=== PATIENT | male | born 1950 | race Caucasian/White ===

== ENCOUNTER 2018-04-08 13:39 | Emergency (ER) | payer MEDICARE, OTHER ==
--- NOTE | 2018-04-08 13:55 | ERPHSYRPT ---
- History of Present Illness Time Seen by Provider: 04/08/18 13:46 Historian: patient Exam Limitations: no limitations Physician History: The patient is a 68-year-old male complaining of chest pain/pressure that began yesterday morning before going to hoahaoism. He took 2 325 mg aspirin tablets under his tongue yesterday morning with some relief. Later in the day he still had the chest pressure and took another 325 mg aspirin under his tongue. This morning he woke up with the chest pressure more severe than yesterday evening. He took 325 mg aspirin this morning. He was with his brother who gave him a nitroglycerin 0.4 mg sublingual with some relief. Yesterday he had some nausea and sweating. He denies shortness of breath. The patient called the nurse at the [facility] and was told to come to the ER to be checked out. He has smoked cigarettes for 54 years. He has no coronary artery disease to his knowledge. His past medical history is significant for BPH, hypertension, high cholesterol, and arthritis. Pt just told me that he has intermittent dizziness and stumbles for 1 month. Had GEE yesterday and today. Wants head CT. worried about brain tumor. Timing/Duration: yesterday, constant, worse Activities at Onset: none Quality: pressure Location: substernal Chest Pain Radiation: no radiation Severity of Pain-Max: severe Severity of Pain-Current: moderate Modifying Factors: Improves With: nitroglycerin, aspirin Associated Symptoms: nausea, diaphoresis, weakness, No vomiting, No abdominal pain, No shortness of breath Prior Chest Pain/Cardiac Workup: no prior chest pain Nitro Today/Relief: 0.4 mg x 1, provided at home, mild relief Aspirin Treatment Today: 325 mg x 1, provided at home Allergies/Adverse Reactions: terazosin Allergy (Verified 04/08/18 15:11) Home Medications: Amlodipine Besylate 5 mg [Norvasc 5 mg] 5 mg PO DAILY 02/28/13 [History] Aspirin EC 81 mg [Ecotrin 81 mg] 81 mg PO DAILY 02/28/13 [History] Celecoxib 100 mg [celeBREX 100 MG] 200 mg PO DAILY 02/28/13 [History] Diclofenac Sodium 75 mg PO BID 02/28/13 [History] Gabapentin 300 mg [Neurontin 300 mg] 600 mg PO BID 02/28/13 [History] Hydrocodone /APAP 7.5/325 mg [[place] 7.5/325 mg Tab] 1 tab PO Q6HPRN PRN 04/05 [History] Loratadine 10 mg [Claritin 10 mg] 10 mg PO DAILY 02/28/13 [History] Multivitamin [Multi-Vitamin Daily] 1 each PO DAILY 02/28/13 [History] [place] 3/Dha/Epa/Vitamin D3 [[place]-3 + Vitamin D3 Softgel] 1 each PO DAILY [History] Omeprazole 20 MG [Prilosec 20 mg] 20 mg PO DAILY 02/28/13 [History] Simvastatin 20Mg [Zocor 20Mg] 20 mg PO DAILY 02/28/13 [History] Tamsulosin HCl 0.4 mg [Flomax 0.4 MG] 0.4 mg PO HS 02/28/13 [History] Testosterone [Androgel] 5 gm TD 02/28/13 [History] Hx Tetanus, Diphtheria Vaccination/Date Given: Yes Hx Influenza Vaccination/Date Given: Yes (LAST SEASON) Hx Pneumococcal Vaccination/Date Given: Yes (COUPLE YEARS AGO) - Review of Systems Constitutional: No Fever, No Chills Eyes: No Symptoms Ears, Nose, & Throat: No Symptoms Respiratory: No Cough, No Dyspnea Cardiac: Chest Pain Abdominal/Gastrointestinal: Nausea, No Vomiting, No Diarrhea Genitourinary Symptoms: No Dysuria Musculoskeletal: No Back Pain, No Neck Pain Skin: No Rash Neurological: No Dizziness, No Focal Weakness, No Sensory Changes Psychological: No Symptoms Endocrine: No Symptoms Hematologic/Lymphatic: No Symptoms Immunological/Allergic: No Symptoms All Other Systems: Reviewed and Negative - Past Medical History Pertinent Past Medical History: Yes Neurological History: No Pertinent History ENT History: No Pertinent History Cardiac History: Hypertension Respiratory History: No Pertinent History Endocrine Medical History: No Pertinent History Musculoskeletal History: Arthritis GI Medical History: No Pertinent History History: No Pertinent History Psycho-Social History: No Pertinent History Male Reproductive Disorders: No Pertinent History - Past Surgical History Past Surgical History: Yes Neuro Surgical History: No Pertinent History Cardiac: No Pertinent History Respiratory: No Pertinent History Gastrointestinal: Appendectomy Genitourinary: No Pertinent History Musculoskeletal: Other Male Surgical History: No Pertinent History Other Surgical History: BACK SURGERY - Social History Smoking Status: Current every day smoker How long have you smoked: 50 Exposure to second hand smoke: No Drug Use: none Patient Lives Alone: No - Nursing Vital Signs Nursing Vital Signs: Initial Vital Signs Temperature 98.1 F 04/08/18 13:41 Pulse Rate 60 04/08/18 13:41 Respiratory Rate 18 04/08/18 13:41 Blood Pressure 146/75 04/08/18 13:41 O2 Sat by Pulse Oximetry 96 04/08/18 13:41 Pain Scale Pain Intensity 4 - Physical Exam General Appearance: no apparent distress, alert Eye Exam: PERRL/EOMI, eyes nml inspection Ears, Nose, Throat Exam: normal ENT inspection, moist mucous membranes Neck Exam: normal inspection, non-tender, supple, full range of motion Respiratory Exam: normal breath sounds, lungs clear, No respiratory distress Cardiovascular Exam: regular rate/rhythm Gastrointestinal/Abdomen Exam: soft, No tenderness, No mass Rectal Exam: not done Back Exam: normal inspection, No CVA tenderness, No vertebral tenderness Extremity Exam: normal inspection, normal range of motion Neurologic Exam: alert, oriented x 3, cooperative, normal mood/affect, sensation nml, No motor deficits Skin Exam: normal color, warm, dry SpO2 Interpretation: normal - Course EKG Interpreted by Me: RATE, Sinus Rhythm, NORMAL AXIS, NORMAL INTERVALS, NORMAL QRS, NORMAL ST-T, Other (no change compared to EKG 03/01/13.) - Radiology Exams Chest X-ray Interpretation: Reviewed by me, Teleradiologist Report, Negative (stable nonacute hyperinflated chest per Dr Nguyễn) - CT Exams Head CT Interpretation: Negative (per Dr Nguyễn), Tele-radiologist Report Ordered Tests: Active Orders 24 hr Category Date Time Status Felt [place] STAT Care 04/08/18 14:03 Active EKG-ER Only STAT Care 04/08/18 14:02 Active IV Insertion STAT Care 04/08/18 14:02 Active Pulse Oximetry (ED) STAT Care 04/08/18 14:02 Active CHEST 2 VIEWS (PA AND LAT) Stat Exams 04/08/18 14:03 Completed HEAD WITHOUT CONTRAST [CT] Stat Exams 04/08/18 17:06 Taken CBC W DIFF Stat Lab 04/08/18 14:20 Completed CMP Stat Lab 04/08/18 14:20 Completed TROPONIN Q3H Lab 04/08/18 14:20 Completed TROPONIN Q3H Lab 04/08/18 17:15 Ordered TROPONIN Q3H Lab 04/08/18 20:15 Ordered TROPONIN Q3H Lab 04/08/18 23:15 Ordered TROPONIN Q3H Lab 04/09/18 02:15 Ordered Medication Summary Discontinued Medications Generic Name Dose Route Start Last Admin Trade Name Freq PRN Reason Stop Dose Admin Al Hydrox/Mg Hydrox/Simethicone Confirm 04/08/18 15:28 Maalox Es 30 Ml Unit Dose Administered 04/08/18 15:29 Dose 30 ml .ROUTE .STK-MED ONE Aspirin 324 mg 04/08/18 14:02 04/08/18 14:39 Baby Aspirin 81 Mg Chew PO 04/08/18 14:03 Not Given STAT ONE Lidocaine HCl Confirm 04/08/18 15:28 Xylocaine Hcl Viscous * Administered 04/08/18 15:29 Dose 15 ml .ROUTE .STK-MED ONE Magnesium Hydroxide 45 ml 04/08/18 15:25 04/08/18 15:32 Gi Cocktail 45 Ml (Maalox/Lidocaine) PO 04/08/18 15:26 45 ml STAT ONE Administration Nitroglycerin 0.4 mg 04/08/18 14:02 04/08/18 14:18 Nitrostat 0.4 Mg (Ed) SL 04/08/18 14:03 0.4 mg STAT ONE Administration Nitroglycerin Confirm 04/08/18 14:15 Nitrostat 0.4 Mg (Ed) Administered 04/08/18 14:16 Dose 0.4 mg SL .STK-MED ONE Nitroglycerin 0.4 mg 04/08/18 14:37 04/08/18 14:42 Nitrostat 0.4 Mg (Ed) SL 04/08/18 14:38 0.4 mg STAT ONE Administration Nitroglycerin Confirm 04/08/18 14:40 Nitrostat 0.4 Mg (Ed) Administered 04/08/18 14:41 Dose 0.4 mg SL .STK-MED ONE Lab/Rad Data: Laboratory Result Diagrams 04/08/18 14:20 04/08/18 14:20 Laboratory Results 04/08/18 04/08/18 04/08/18 Range/Units 14:20 14:20 14:20 WBC 10.1 (4.0-10.5) K/mm3 RBC 3.90 L (4.1-5.6) M/mm3 Hgb 12.7 (12.5-18.0) gm/dl Hct 38.3 L (42-50) % MCV 98.2 (78-100) fl MCH 32.5 H (26-32) pg MCHC 33.2 (32-36) g/dl RDW 13.0 (11.5-14.0) % Plt Count 198 (150-450) K/mm3 MPV 9.4 (6-9.5) fl Gran % 64.4 (36.0-66.0) % Eos # (Auto) 0.36 (0-0.5) Absolute Lymphs (auto) 2.46 (1.0-4.6) Absolute Monos (auto) 0.72 (0.0-1.3) Lymphocytes % 24.5 (24.0-44.0) % Monocytes % 7.2 (0.0-12.0) % Eosinophils % 3.6 (0.00-5.0) % Basophils % 0.3 (0.0-0.4) % Absolute Granulocytes 6.49 (1.4-6.9) Basophils # 0.03 (0-0.4) Sodium 142 (137-145) mmol/L Potassium 4.4 (3.5-5.1) mmol/L Chloride 107 (98-107) mmol/L Carbon Dioxide 26 (22-30) mmol/L Anion Gap 14.4 (5-15) MEQ/L BUN 19 (9-20) mg/dL Creatinine 0.78 (0.66-1.25) mg/dL Estimated GFR > 60.0 ML/MIN Glucose 92 (74-106) mg/dL Calcium 9.2 (8.4-10.2) mg/dL Total Bilirubin 0.40 (0.2-1.3) mg/dL AST 31 (17-59) U/L ALT 31 (0-50) U/L Alkaline Phosphatase 66 (38-126) U/L Troponin I < 0.012 (0.000-0.034) ng/mL Serum Total Protein 6.6 (6.3-8.2) g/dL Albumin 4.1 (3.5-5.0) g/dL - Progress Progress: improved Air Movement: good Progress Note: 04/08/18 14:38 After ng 0.4 mg SL, pt has less chest pain. 04/08/18 17:06 Pt feeling better after GI Cocktail. - Departure Time of Disposition: 18:41 Departure Disposition: Home Clinical Impression: Chest pain Condition: Stable Critical Care Time: No Referrals: DOCTOR,NO FAMILY [Primary Care Provider] - Additional Instructions: You had a 2 day episode of chest pain. Your EKG, chest x-ray, head CT, laboratory results including troponin were all normal. You were given nitroglycerin and a GI cocktail in the ER. Please contact [facility] for further follow-up as needed.
[2018-04-08] MEDS ORDERED: Nitrostat 0.4 MG (ED) SL ONE ×4 (14:02→14:40)
[2018-04-08] MEDS ORDERED: BABY ASPIRIN 81 MG CHEW PO ONE (14:02)
[2018-04-08 14:26] LABS: BASOPHIL % 0.3 % (0.0-0.4); Basophil (Absolute #) 0.03 (0-0.4); Eosinophil % 3.6 % (0.00-5.0); Eosinophil (Absolute #) 0.36 (0-0.5); Granulocyte Absolute (ANC) 6.49 (1.4-6.9); Granulocytes % 64.4 % (36.0-66.0); Hematocrit 38.3 % (42-50); Hemoglobin 12.7 gm/dl (12.5-18.0); Lymphocyte (Absolute #) 2.46 (1.0-4.6); Lymphocytes % 24.5 % (24.0-44.0); Mean Cell Volume 98.2 fl (78-100); Mean Corpuscular Hgb Concent. 33.2 g/dl (32-36); Mean Platelet Volume 9.4 fl (6-9.5); Monocyte (Absolute #) 0.72 (0.0-1.3); Monocytes % 7.2 % (0.0-12.0); Platelet Count 198 K/mm3 (150-450); White Blood Count 10.1 K/mm3 (4.0-10.5)
--- NOTE | 2018-04-08 14:39 | XRAY ---
Indication: Chest pain. Comparison: February 28, 2013. PA/lateral chest again hyperinflated and clear with incidental scattered calcified granulomas. Heart and mediastinal structures within normal limits. Bony thorax intact again with mild degenerative changes. Impression: Stable nonacute hyperinflated chest with chronic features.
[2018-04-08 14:49] LABS: Mean Corpuscular Hemoglobin 32.5 pg (26-32)
[2018-04-08 15:00] LABS: ALBUMIN 4.1 g/dL (3.5-5.0); ALKALINE PHOSPHATASE 66 U/L (38-126); ANION GAP 14.4 MEQ/L (5-15); BLOOD UREA NITROGEN 19 mg/dL (9-20); CHLORIDE 107 mmol/L (98-107); Calcium 9.2 mg/dL (8.4-10.2); Carbon Dioxide 26 mmol/L (22-30); Creatinine 1 0.78 mg/dL (0.66-1.25); Glucose 92 mg/dL (74-106); Potassium 4.4 mmol/L (3.5-5.1); SGOT/AST 31 U/L (17-59); SGPT/ALT 31 U/L (0-50); SODIUM 142 mmol/L (137-145); Total Protein 6.6 g/dL (6.3-8.2)
[2018-04-08] MEDS ORDERED: GI COCKTAIL 45 ML (Maalox/Lidocaine) PO ONE (15:25)
[2018-04-08] MEDS ORDERED: XYLOCAINE HCl Viscous ONE (15:28)
[2018-04-08] MEDS ORDERED: MAALOX ES 30 ML UNIT DOSE ONE (15:28)
[2018-04-08 19:14] VITALS: BP 158/65; PULSE 60; O2SAT 96
--- NOTE | 2018-04-09 08:38 | XRAY ---
Indication: Headache and dizziness. No known injury. Multiple contiguous axial images obtained through the head without contrast. Comparison: None Normal appearing brain parenchyma, ventricles, and bony calvarium. Visualized paranasal sinuses and mastoid air cells are clear. Impression: Normal CT head without contrast exam. CT DI 69.52
== END 2018-04-08 19:12 | disposition home or self-care (01) ==
LOC: ED 13:39
DX: R07.9 Chest pain, unspecified (principal); R42 Dizziness and giddiness; R51 Headache; R11.0 Nausea; R53.1 Weakness; Z79.82 Long term (current) use of aspirin; Z79.899 Other long term (current) drug therapy
CPT/HCPCS: 36000; 36415; 70450; 71046; 80053; 84484; 85025; 93005; 93041; 99284; A9270-GY

== ENCOUNTER 2019-02-26 09:56 | Day surgery (SDC) | payer MEDICARE, OTHER ==
[2019-02-26] MEDS ORDERED: Sodium Chloride 0.9(Preservative Free) 10 ML IJ ONE (09:57)
[2019-02-26] MEDS ORDERED: Ketamine HCl 50 MG/ML IV ONE (09:57)
[2019-02-26] MEDS ORDERED: Depo-Medrol 40 MG/ML IM ONE (09:57)
[2019-02-26] MEDS ORDERED: DIPRIVAN 200 MG/20 ML IV ONE (09:57)
--- NOTE | 2019-02-26 12:51 | XRAY ---
Indication: Right L4-S1 EUSEBIO. Intraoperative fluoroscopy was provided for 1 minute 16 seconds. 2 digital spot image submitted for interpretation demonstrates posterior needle tips projecting over the expected course of the right L3-L4 nerve roots. Small amount of contrast injected for needle tip placement. Correlate with intraoperative findings/report.
--- NOTE | 2019-02-26 12:58 | XRAY ---
1 minute and 16 seconds fluoroscopy time in surgery for right L4-S1 EUSEBIO.
[2019-02-26] MEDS ORDERED: Lactated Ringers 1,000 ML IV ONE (13:30)
== END 2019-02-26 11:45 | disposition home or self-care (01) ==
LOC: SDC-PAIN 09:56
PROVIDERS: ATTEND Psychiatry & Neurology Pain Medicine
DX: M54.16 Radiculopathy, lumbar region (principal); M19.90 Unspecified osteoarthritis, unspecified site
CPT/HCPCS: 64483; 64484; 72020; 77003; 99100; J1030; J2704; Q9966

== ENCOUNTER 2020-07-10 16:12 | Emergency (ER) | payer MEDICARE ==
--- NOTE | 2020-07-10 16:25 | ERPHSYRPT ---
- History of Present Illness Time Seen by Provider: 07/10/20 16:19 Source: patient Exam Limitations: no limitations Physician History: Patient is a 70-year-old male with a past medical history significant for chronic back pain for which he takes gabapentin and Blakeslee presents with a chief complaint of left shoulder pain and left ankle pain after mechanical fall that occurred couple hours prior to arrival to the emergency department. He states that he was on a ladder that was reportedly a 6 foot ladder but not at the top of the ladder when he fell and impacted the left side of his body on a hard surface, specifically concrete. States he was about midway up the ladder when he fell. There is no reported loss of consciousness, headache, neck pain and the patient was able to pick himself up off the ground and ambulate and drive home but decided to come to the emergency department when he continued to have left shoulder pain. He is not take anything for the pain prior to arrival and reportedly had a Blakeslee at about 630 this morning for his chronic back pain. The patient denied taking anticoagulants and antiplatelets. His main complaint was a left shoulder pain. The pain is dull ache nonradiating constant. He also endorsed having swelling to the left shoulder in addition to the lateral aspect of the left ankle. He has been able to weight-bear on the left foot immediately after the fall. Labs alone in the emergency department but stated he was able to arrange transportation if he were to get any medications that would impair his ability to drive. Allergies/Adverse Reactions: terazosin Allergy (Verified 07/10/20 16:14) Home Medications: Amlodipine Besylate 5 mg [Norvasc 5 mg] 5 mg PO DAILY 02/28/13 [History] Aspirin EC 81 mg [Ecotrin 81 mg] 81 mg PO DAILY 02/28/13 [History] Celecoxib 100 mg [celeBREX 100 MG] 200 mg PO DAILY 02/28/13 [History] Diclofenac Sodium 75 mg PO BID 02/28/13 [History] Gabapentin 300 mg [Neurontin 300 mg] 600 mg PO BID 02/28/13 [History] Hydrocodone /APAP 7.5/325 mg [[place] 7.5/325 mg Tab] 1 tab PO Q6HPRN PRN 02/28/13 [History] Loratadine 10 mg [Claritin 10 mg] 10 mg PO DAILY 02/28/13 [History] Multivitamin [Multi-Vitamin Daily] 1 each PO DAILY 02/28/13 [History] [place] 3/Dha/Epa/Vitamin D3 [[place]-3 + Vitamin D3 Softgel] 1 each PO DAILY 02/28/13 [History] Omeprazole 20 MG [Prilosec 20 mg] 20 mg PO DAILY 02/28/13 [History] Simvastatin 20Mg [Zocor 20Mg] 20 mg PO DAILY 02/28/13 [History] Tamsulosin HCl 0.4 mg [Flomax 0.4 MG] 0.4 mg PO HS 02/28/13 [History] Hx Tetanus, Diphtheria Vaccination/Date Given: Yes Hx Influenza Vaccination/Date Given: Yes (LAST SEASON) Hx Pneumococcal Vaccination/Date Given: Yes (COUPLE YEARS AGO) Travel Risk - International Travel Have you traveled outside of the country in past 3 weeks: Yes - Coronavirus Screening Are you exhibiting any of the following symptoms?: No Close contact with a COVID-19 positive Pt in past 14-21 Days: No - Review of Systems Constitutional: No Symptoms Eyes: No Symptoms Ears, Nose, & Throat: No Symptoms Respiratory: No Symptoms, No Cough, No Cyanosis, No Dyspnea Cardiac: No Symptoms Abdominal/Gastrointestinal: No Symptoms Musculoskeletal: Fall, Injury, Other (Left shoulder pain and swelling, left ankle pain and swelling, left elbow pain, mid thoracic back pain) Skin: No Symptoms Neurological: No Symptoms, No Headache Psychological: No Symptoms Endocrine: No Symptoms Hematologic/Lymphatic: No Symptoms Immunological/Allergic: No Symptoms All Other Systems: Reviewed and Negative - Past Medical History Pertinent Past Medical History: Yes Neurological History: No Pertinent History ENT History: No Pertinent History Cardiac History: Hypertension Respiratory History: No Pertinent History Endocrine Medical History: No Pertinent History Musculoskeletal History: Arthritis GI Medical History: No Pertinent History History: No Pertinent History Psycho-Social History: No Pertinent History Male Reproductive Disorders: No Pertinent History - Past Surgical History Past Surgical History: Yes Neuro Surgical History: No Pertinent History Cardiac: No Pertinent History Respiratory: No Pertinent History Gastrointestinal: Appendectomy Genitourinary: No Pertinent History Musculoskeletal: Other Male Surgical History: No Pertinent History Other Surgical History: BACK SURGERY - Social History Smoking Status: Current every day smoker How long have you smoked: 50 Exposure to second hand smoke: No Drug Use: none Patient Lives Alone: No - Nursing Vital Signs Nursing Vital Signs: Initial Vital Signs Pulse Rate 64 07/10/20 17:31 Respiratory Rate 18 07/10/20 17:31 Blood Pressure 130/56 07/10/20 17:31 O2 Sat by Pulse Oximetry 97 07/10/20 17:31 Pain Scale Pain Intensity 5 - Physical Exam General Appearance: no apparent distress, alert Eye Exam: PERRL/EOMI, eyes nml inspection Ears, Nose, Throat Exam: normal ENT inspection, TMs normal, pharynx normal, moist mucous membranes, No TM abnormal (R), No TM abnormal (L), No pharyngeal erythema, No tonsillar exudate Neck Exam: normal inspection, non-tender, supple, No JVD, No limited range of motion, No midline tenderness Respiratory Exam: normal breath sounds, lungs clear, airway intact, No chest tenderness, No respiratory distress, No diminished breath sounds, No accessory muscle use Cardiovascular Exam: regular rate/rhythm, normal heart sounds - Radiology Exams Shoulder X-ray Interpretation: Interpreted by me, Reviewed by me, Negative, No Fracture, No Subluxation Elbow X-ray Interpretation: Interpreted by me, Reviewed by me, Negative, No Fracture, No Subluxation Ankle X-ray Interpretation: Interpreted by me, Reviewed by me, Negative, No Subluxation L-Spine X-ray Interpretation: Reviewed by me, Teleradiologist Report (Arthritis and listhesis) T-Spine X-ray Interpretation: Reviewed by me, Teleradiologist Report (Arthritis. No fracture) Ordered Tests: Active Orders 24 hr Category Date Time Status Feroz Bandage Application -[facility] STAT Care 07/10/20 17:50 Active Crutches STAT Care 07/10/20 17:50 Active Sling Application STAT Care 07/10/20 17:50 Active ANKLE (3 VIEWS) Stat Exams 07/10/20 16:26 Taken CHEST 2 VIEWS (PA AND LAT) Stat Exams 07/10/20 16:26 Taken ELBOW (MINIMUM 3 VIEWS) Stat Exams 07/10/20 16:26 Taken LUMBAR LIMITED (2 OR 3 VIEWS) Routine Exams 07/10/20 17:14 Taken SHOULDER Stat Exams 07/10/20 16:27 Taken THORACIC SPINE (AP,LAT,SWIMM) Stat Exams 07/10/20 16:27 Taken Medication Summary Discontinued Medications Generic Name Dose Route Start Last Admin Trade Name Camille PRN Reason Stop Dose Admin Fentanyl Citrate 50 mcg 07/10/20 16:28 07/10/20 16:32 Sublimaze 100 Mcg/2 Ml INTRANASAL 07/10/20 16:29 50 mcg STAT ONE Administration Fentanyl Citrate Confirm 07/10/20 16:30 Sublimaze 100 Mcg/2 Ml Administered 07/10/20 16:31 Dose 100 mcg .ROUTE .STK-MED ONE - Progress Progress: improved Progress Note: 07/10/20 17:03 Inspect reviewed and it appears the patient got 60 tablets of [place]akes[place] 7.5-325 filled on July 01, 2020. 07/10/20 17:32 Dated patient with his lumbar spine x-ray findings concerning for compression fractures and generative changes in his lumbar spine and he stated that he follows with the [facility] in [place] for his back pain and had x-rays and a follow-up MRI done at [facility] specifically done in May of this year and reportedly has been referred to a neurosurgeon for further evaluation and management. The patient's nurse is currently contacting [facility] to see if we can obtain his MRI report of his lumbar spine. SPECT the x-ray findings today are likely chronic and not acute. 07/10/20 17:44 MRI lumbar spine without contrast report from [facility] dated June 162019 was faxed over. The impression on this report reads the followin. Straightening of the lumbar lordosis with minimal retrolisthesis L2 on L3 and L3 on L4 with slight rightward lateral listhesis L3 on L4 in association with spondylosis and degenerative disc disease producing multilevel variable compromise of the lateral recesses, spinal canal stenosis, neuroforaminal stenosis as above. 2. L4-L5 posterior osteophytosis with annular disc bulge of the residual intervertebral disc facet arthropathy compromising lateral recess as well producing mild right and mild/moderate left neuroforaminal stenosis, noting combination of inferior pedicle surfaces osteophytosis/disc and arthropathy facet contact with exiting right and inferior pedicle surface and disc contact with exiting left L4 nerve roots; no spinal canal stenosis. 3. L5 and S1 posterior osteophytosis with annular disc bulge with shallow disc protrusion of the residual intervertebral disc and facet arthropathy produces severe bilateral neural foraminal stenosis, noting combination of inferior pedicle services, osteophytosis/disc, and arthropathy facet D formation of the exiting right and contact with the exiting L5 nerve roots, no spinal canal stenosis. Report will be scanned into the patient's medical record. Counseled pt/family regarding: diagnosis, need for follow-up, rad results - Departure Departure Disposition: Extended Care Facility Clinical Impression: Contusion of shoulder, left, Left ankle sprain, Acute exacerbation of chronic low back pain, Fall, Left elbow contusion Condition: Stable Critical Care Time: No Referrals: DOCTOR,NO FAMILY [Primary Care Provider] - Instructions: Contusion (DC), Preventing Falls, How to Use a Shoulder Sling, How to Use Crutches, Ankle Sprain (DC) Additional Instructions: [facility] one week and please follow-up with your neurosurgeon as scheduled once the appointment has been made.
[2020-07-10] MEDS ORDERED: SUBLIMAZE 100 MCG/2 ML INTRANASAL ONE (16:28)
[2020-07-10] MEDS ORDERED: SUBLIMAZE 100 MCG/2 ML ONE (16:30)
[2020-07-10 17:32] VITALS: BP 130/56; PULSE 64; O2SAT 97
--- NOTE | 2020-07-10 20:47 | XRAY ---
Indication: Pain following 6 feet fall. Comparison: None. 3 view left elbow obtained. No bony, articular, or soft tissue abnormalities.
--- NOTE | 2020-07-10 20:47 | XRAY ---
Indication: Pain following 6 feet fall. Comparison: April 08, 2018. PA/lateral chest remains hyperinflated and clear with incidental calcific granulomas. Heart is not enlarged. Bony thorax intact again with mild osteopenia and degenerative changes. Impression: Continued nonacute hyperinflated chest with chronic features.
--- NOTE | 2020-07-10 20:47 | XRAY ---
Indication: Pain following 6 feet fall. Comparison: None. 3 view left ankle demonstrates tiny posterior heel spur and tiny cuboid accessory ossicle. No other bony, articular, or soft tissue abnormalities.
--- NOTE | 2020-07-10 20:49 | XRAY ---
Indication: Pain following 6 feet fall. Comparison: None. 3 view left shoulder demonstrates mild osteopenia, moderate AC degenerative arthropathy, and high riding humeral head commonly associated with rotator cuff tears. No other bony, articular, or soft tissue abnormalities. Chest and thoracic spine reported separately.
--- NOTE | 2020-07-10 20:51 | XRAY ---
Indication: Pain following 6 feet fall. Comparison: None. AP/lateral thoracic spine demonstrates 12 rib-bearing segments in normal alignment with mild osteopenia and mild/moderate multilevel endplate spurring. No other bony, articular, or soft tissue abnormalities. Comment: Preliminary interpretation was made by [facility]. No critical discrepancy.
--- NOTE | 2020-07-10 20:54 | XRAY ---
Indication: Pain following 6 feet fall. Comparison: None. 3 view lumbar spine demonstrates 5 lumbar segments with minimal double curvature scoliosis, mild osteopenia, moderate/advanced multilevel degenerative spondylosis, incompletely visualized left hip arthroplasty, and aortoiliac calcifications. No other bony, articular, or soft tissue abnormalities. Comment: Preliminary interpretation was made by [facility]. No critical discrepancy.
== END 2020-07-10 18:11 | disposition home or self-care (01) ==
LOC: ED 16:12
DX: S40.012A Contusion of left shoulder, initial encounter (principal); S93.402A Sprain of unspecified ligament of left ankle, initial encounter; M54.5 Low back pain; G89.29 Other chronic pain; S50.02XA Contusion of left elbow, initial encounter; M51.36 Other intervertebral disc degeneration, lumbar region; M47.9 Spondylosis, unspecified; W17.89XA Other fall from one level to another, initial encounter
CPT/HCPCS: 71046; 72072; 72100; 73030; 73080; 73610; 99284; J3010

== ENCOUNTER 2022-11-08 12:36 | Day surgery (SDC) | payer MEDICARE ==
[2022-11-08] MEDS ORDERED: Depo-Medrol 40 MG/ML IM ONE (12:37)
[2022-11-08] MEDS ORDERED: LIDOCAINE HCL 2% 100 MG/5 ML IJ ONE (12:37)
[2022-11-08] MEDS ORDERED: Lactated Ringers 1,000 ML IV ONE (15:03)
[2022-11-08] MEDS ORDERED: DIPRIVAN 200 MG/20 ML IV ONE (15:12)
--- NOTE | 2022-11-08 17:17 | XRAY ---
Indication: Bilateral L4-S1 MBB. Intraoperative fluoroscopy provided for 36 seconds. 3 digital spot images submitted for interpretation demonstrates posterior needle tips projecting over the expected left and right L4-S1 nerve roots. Correlate with intraoperative findings/report. Incidental bilateral L4-S1 fusion hardware.
--- NOTE | 2022-11-08 17:19 | XRAY ---
36 seconds of fluoroscopy was used in surgery for a bilateral L4-S1 MBB.
== END 2022-11-08 15:45 | disposition home or self-care (01) ==
LOC: SDC-PAIN 12:36
PROVIDERS: ATTEND Psychiatry & Neurology Pain Medicine
DX: M47.816 Spondylosis without myelopathy or radiculopathy, lumbar region (principal); Z79.899 Other long term (current) drug therapy
CPT/HCPCS: 64493; 64494; 72020; 77002; J1030; J2704

== ENCOUNTER 2022-12-07 10:51 | Emergency (ER) | payer MEDICARE, OTHER ==
[2022-12-07 12:05] LABS: Appearance Clear (Clear); Bilirubin Negative (Negative); Blood Negative (Negative); Glucose, Urine Negative (Negative); Ketones Negative (Negative); Leukocyte Esterase Negative (Negative); Nitrite Negative (Negative); Protein,Urine Dip Negative (Negative); Urobilinogen 0.2 mg/dL (0.2)
[2022-12-07 12:15] LABS: ADD URINE CULTURE? NO (NO); Bacteria None Seen /HPF (None Seen); Epithelial Cells None Seen /HPF (None Seen); RBC NONE SEEN /HPF (0-5); WBC NONE SEEN /HPF (0-5)
--- NOTE | 2022-12-07 12:35 | XRAY ---
Indication: Right testicle pain. Two-dimensional testicular sonogram performed. Impression: None Both testicles are homogeneous in echogenicity and demonstrates normal color perfusion. Right testicle measures 3.4 x 2.3 x 4.3 cm and the left measures 3.7 x 2.5 x 3.1 cm. Slightly prominent and heterogeneous right epididymis without focal mass, possible epididymitis. 7 mm left epididymal cyst. No suspicious extratesticular mass or hydrocele. Impression: 1. Prominent heterogeneous right epididymis. Rule out epididymitis. 2. Tiny left epididymal cyst. 3. Remaining testicular sonogram is negative.
[2022-12-07] MEDS ORDERED: TORAdol 30 mg Injection IM ONE (12:37)
[2022-12-07] MEDS ORDERED: TORAdol 30 mg Injection ONE (12:43)
--- NOTE | 2022-12-07 12:48 | ERPHSYRPT ---
- History of Present Illness Time Seen by Provider: 12/07/22 11:00 Source: patient Exam Limitations: no limitations Patient Subjective Stated Complaint: C/O right scrotum pain and swelling for several days Triage Nursing Assessment: Patient ambulated back to ER with slow, huched, bow- legged gait. He is alert and oriented. No SOB. Patient has frequent back pain; seen by Dr. Herr. Patient states his new pain and reason to be seen in ER is right scrotum pain and swelling. Scrotum examed; no discoloration noted, no real swelling but left testicle does hang lower than the right. Patient can press on right side of pelvic area and right side will lower to become more symmetrical with left. Physician History: Patient is a 72-year-old male presents to our ED for evaluation of right scrotum pain. Patient initially triaged as back pain but did not reveal the real reason for his visit because his significant other was with him. Patient's complaint is right scrotal pain and not back pain. Patient states his right scrotum has been swelling for the past 5 days. Pain is progressively worse. No trauma. No fever. No abdominal pain. No nausea vomiting or diarrhea. Patient denies the possibility of STI. Symptoms are moderate in intensity. Palpation reproduces pain. Pain improved with rest. Patient denies a history of the same. He voices no other complaints or concerns at this time. Portions of this note were created with voice recognition technology. There may be grammatical, spelling, punctuation or sound alike errors Timing/Duration: week(s) (1 week) Activites at Onset: none Quality: aching Onset Location: other (Right testicle) Pain Radiation: none Severity of Pain-Max: moderate Severity of Pain-Current: mild Modifying Factors: Improves With: movement Associated Symptoms: denies symptoms Prior abdominal problems: none Sexual intercourse history: non-contributory (Patient states he is impotent) Allergies/Adverse Reactions: terazosin Allergy (Verified 12/07/22 11:13) Home Medications: Amlodipine Besylate 5 mg [Norvasc 5 mg] 5 mg PO DAILY 02/28/13 [History] Celecoxib 100 mg [celeBREX 100 MG] 200 mg PO DAILY 02/28/13 [History] Diclofenac Sodium 75 mg PO BID 02/28/13 [History] Gabapentin [Neurontin ] 600 mg PO BID 02/28/13 [History] Hydrocodone /APAP 7.5/325 mg [[place] 7.5/325 mg Tab] 1 tab PO Q6HPRN PRN 02/28/13 [History] Loratadine 10 mg [Claritin 10 mg] 10 mg PO DAILY 02/28/13 [History] Multivitamin [Multi-Vitamin Daily] 1 each PO DAILY 02/28/13 [History] [place] 3/Dha/Epa/Vitamin D3 [[place]-3 + Vitamin D3 Softgel] 1 each PO DAILY 02/28/13 [History] Omeprazole 20 MG [Prilosec 20 mg] 20 mg PO DAILY 02/28/13 [History] Simvastatin 20Mg [Zocor 20Mg] 20 mg PO DAILY 02/28/13 [History] Tamsulosin HCl 0.4 mg [Flomax 0.4 MG] 0.4 mg PO HS 02/28/13 [History] Hx Tetanus, Diphtheria Vaccination/Date Given: Yes Hx Influenza Vaccination/Date Given: [place] [facility] Hx Pneumococcal Vaccination/Date Given: Yes ([facility]) Immunizations Up to Date: Yes Travel Risk - International Travel Have you traveled outside of the country in past 3 weeks: No - Coronavirus Screening Are you exhibiting any of the following symptoms?: No Close contact with a COVID-19 positive Pt in past 14-21 Days: No - Vaccine Status Have you recieved a Covid-19 vaccination: Yes Rfid Analyst: Moderna - Vaccination Dates Date of 2cond Vaccination (if applicable): ? - Past Medical History Pertinent Past Medical History: Yes Neurological History: No Pertinent History ENT History: No Pertinent History Cardiac History: High Cholesterol, Hypertension Respiratory History: No Pertinent History Endocrine Medical History: No Pertinent History Musculoskeletal History: Arthritis GI Medical History: No Pertinent History History: No Pertinent History Psycho-Social History: No Pertinent History Male Reproductive Disorders: Prostate Problems Other Medical History: left hydrocele - Past Surgical History Past Surgical History: Yes Neuro Surgical History: No Pertinent History Cardiac: No Pertinent History Respiratory: No Pertinent History Gastrointestinal: Appendectomy Genitourinary: No Pertinent History Musculoskeletal: Other Male Surgical History: No Pertinent History Other Surgical History: BACK SURGERY, hip replacement (left) - Social History Smoking Status: Current every day smoker How long have you smoked: 60 years Exposure to second hand smoke: No Drug Use: none Patient Lives Alone: Yes - Review of Systems Constitutional: No Symptoms, No Fever, No Chills Eyes: No Symptoms Ears, Nose, & Throat: No Symptoms Respiratory: No Symptoms, No Cough, No Dyspnea Cardiac: No Symptoms, No Chest Pain, No Edema, No Syncope Abdominal/Gastrointestinal: No Symptoms, No Abdominal Pain, No Nausea, No Vomiting, No Diarrhea Genitourinary Symptoms: No Symptoms, No Dysuria Musculoskeletal: No Symptoms, No Back Pain, No Neck Pain Skin: No Symptoms, No Rash Neurological: No Symptoms, No Dizziness, No Focal Weakness, No Sensory Changes Psychological: No Symptoms Endocrine: No Symptoms Hematologic/Lymphatic: No Symptoms Immunological/Allergic: No Symptoms All Other Systems: Reviewed and Negative - Nursing Vital Signs Nursing Vital Signs: Initial Vital Signs Temperature 97.6 F 12/07/22 10:51 Pulse Rate 63 12/07/22 10:51 Respiratory Rate 17 12/07/22 10:51 Blood Pressure 149/59 12/07/22 10:51 O2 Sat by Pulse Oximetry 98 12/07/22 10:51 Pain Scale Pain Intensity 3 - Physical Exam General Appearance: no apparent distress, alert Eye Exam: PERRL/EOMI Ears, Nose, Throat Exam: normal ENT inspection, TMs normal, pharynx normal, moist mucous membranes Neck Exam: normal inspection, supple, full range of motion Respiratory Exam: normal breath sounds, lungs clear, respiratory distress, airway intact Cardiovascular Exam: regular rate/rhythm, normal heart sounds, normal peripheral pulses, No edema Gastrointestinal/Abdomen Exam: soft, normal bowel sounds, No tenderness Male Genital Exam: scrotum tenderness (R) Back Exam: normal inspection, other (Tenderness to palpation at the right SI joint. Overlying soft tissue intact. No signs of trauma.), No CVA tenderness Extremity Exam: normal inspection, normal range of motion, No pedal edema Neurologic Exam: alert, oriented x 3, cooperative, sensation nml, No motor deficits Skin Exam: normal color, warm, dry, No rash Lymphatic Exam: No adenopathy SpO2 Interpretation: normal SpO2: 97 O2 Delivery: Room Air - Course Nursing assessment & vital signs reviewed: Yes Ordered Tests: Active Orders 24 hr Category Date Time Status TESTICLE [US] Stat Exams 12/07/22 11:38 Completed UA W/RFX UR CULTURE Stat Lab 12/07/22 11:19 Completed Medication Summary Discontinued Medications Generic Name Dose Route Start Last Admin Trade Name Camille PRN Reason Stop Dose Admin Ceftriaxone Sodium 500 mg 12/07/22 13:39 12/07/22 13:43 Ceftriaxone Sodium 500 Mg Vial IM 12/07/22 13:40 500 mg STAT ONE Administration Ceftriaxone Sodium Confirm 12/07/22 13:42 Ceftriaxone Sodium 500 Mg Vial Administered 12/07/22 13:43 Dose 500 mg .ROUTE .STK-MED ONE Ketorolac Tromethamine 30 mg 12/07/22 12:37 12/07/22 12:46 Ketorolac Tromethamine 30 Mg/Ml Inj IM 12/07/22 12:38 30 mg STAT ONE Administration Ketorolac Tromethamine Confirm 12/07/22 12:43 Ketorolac Tromethamine 30 Mg/Ml Inj Administered 12/07/22 12:44 Dose 30 mg .ROUTE .STK-MED ONE Lidocaine HCl Confirm 12/07/22 13:42 Lidocaine Hcl 1% 20 Ml Mdv 20 Ml Ml Administered 12/07/22 13:43 Dose 1 ml .ROUTE .STK-MED ONE Lab/Rad Data: Laboratory Results 12/07/22 12/07/22 Range/Units 11:19 11:19 Urine Color Yellow (Yellow) Urine Appearance Clear (Clear) Urine pH 5.0 (4.6-8.0) Ur Specific [place] 1.010 (1.005-1.030) Urine Protein Negative (Negative) Urine Glucose (UA) Negative (Negative) mg/dL Urine Ketones Negative (Negative) Urine Blood Negative (Negative) Urine Nitrite Negative (Negative) Urine Bilirubin Negative (Negative) Urine Urobilinogen 0.2 (0.2) mg/dL Ur Leukocyte Esterase Negative (Negative) Urine Microscopic RBC NONE SEEN (0-5) /HPF Urine Microscopic WBC NONE SEEN (0-5) /HPF Ur Epithelial Cells None Seen (None Seen) /HPF Urine Bacteria None Seen (None Seen) /HPF Urine Culture Reflexed NO (NO) Chlamydia DNA Probe NOT DETECTED (NEGATIVE) N.gonorrhoeae DNA Probe NOT DETECTED (NEGATIVE) - Progress Progress: improved Progress Note: Work-up reveals a epididymitis. Patient received a dose of intramuscular Rocephin in our ED. A prescription for doxycycline forwarded to patient's pharmacy. Patient has [place] at home prescribed to him for chronic back pain. Patient has pain to his right SI joint as well. However this is not acute. We will discharge home. Patient received a dose of Toradol for pain control. Patient resting comfortably. He voices no other complaints or concerns at this time. [facility] Patient 72-year-old male presents to our ED with right testicular pain. Physical exam reveals tenderness to the right scrotal area. No signs of infection. No cellulitis. No hernia. Ultrasound reveals epididymitis. Patient received a dose of Rocephin in our ED. A prescription for doxycycline forwarded to patient's pharmacy. Patient's complaint is acute. Vital stable. Complexity of problems addressed is moderate. Diagnosis is acute with uncertain prognosis. No critical care time. Complexity of data reviewed and analyzed is moderate. Test ordered. Test reviewed. Patient served as independent historian. No outside documentation reviewed. Ultrasound, GC/chlamydia urinalysis testing ordered and analyzed. Risk of complication and or morbidity/mortality of patient management is moderate. Patient received intramuscular injection of an antibiotic. A prescription for an antibiotic was forwarded to patient's pharmacy. No controlled medications administered. No hospitalization. [facility]. He voices no other complaints or concerns at this time. Time spent in discharge is approximately 15 minutes. Discharge diagnoses epididymitis/testicular pain. Vital stable. Portions of this note were created with voice recognition technology. There may be grammatical, spelling, punctuation or sound alike errors 12/07/22 13:53 Counseled pt/family regarding: lab results, diagnosis, need for follow-up, rad results - Departure Departure Disposition: Home Clinical Impression: Scrotal pain, Epididymitis, Chronic right SI joint pain, Epididymal cyst Condition: Stable Critical Care Time: No Referrals: DOCTOR,NO FAMILY [Primary Care Provider] - Follow up/PCP as directed MIGUEL A RODRIGUEZ [ACTIVE STAFF] - Follow up/PCP as directed Instructions: Epididymitis Prescriptions: Doxycycline Hyclate 100 mg [Vibramycin 100 MG] 100 mg PO BID #14 tab
[2022-12-07 13:23] LABS: CHLAMYDIA DNA NOT DETECTED (NEGATIVE); GC DNA Probe NOT DETECTED (NEGATIVE)
[2022-12-07] MEDS ORDERED: Rocephin 500 MG INJ IM ONE (13:39)
[2022-12-07] MEDS ORDERED: XYLOCAINE 1% HCL 20 ML MDV ONE (13:42)
[2022-12-07] MEDS ORDERED: Rocephin 500 MG INJ ONE (13:42)
[2022-12-07 13:50] VITALS: BP 145/88; PULSE 62
[2022-12-07 13:53] VITALS: O2SAT 97
== END 2022-12-07 13:56 | disposition home or self-care (01) ==
LOC: ED 10:51
DX: N45.1 Epididymitis (principal); N50.82 Scrotal pain; N50.3 Cyst of epididymis; G89.29 Other chronic pain; M53.3 Sacrococcygeal disorders, not elsewhere classified; E78.5 Hyperlipidemia, unspecified; I10 Essential (primary) hypertension; Z79.899 Other long term (current) drug therapy; Z72.0 Tobacco use
CPT/HCPCS: 76870; 81001; 87491; 87591; 96372; 99283; J0696; J1885

== ENCOUNTER 2023-01-17 10:43 | Day surgery (SDC) | payer MEDICARE ==
[2023-01-17] MEDS ORDERED: BUPIVACAINE 0.5% VIAL IJ ONE (10:44)
[2023-01-17] MEDS ORDERED: Depo-Medrol 40 MG/ML IM ONE (10:44)
[2023-01-17] MEDS ORDERED: DIPRIVAN 200 MG/20 ML IV ONE (12:23)
[2023-01-17] MEDS ORDERED: Lactated Ringers 1,000 ML IV ONE (14:16)
--- NOTE | 2023-01-17 16:27 | XRAY ---
Indication: Bilateral L4-S1 MBB. Intraoperative fluoroscopy provided for 31 seconds. Single digital spot image submitted for interpretation demonstrates posterior needle tips projecting over the expected left and right L4-S1 nerve roots. Correlate with intraoperative findings/report. Incidental bilateral L4-S1 fusion hardware.
--- NOTE | 2023-01-17 16:37 | XRAY ---
31 seconds of fluoroscopy was used in surgery for a bilateral L4-S1 MBB.
== END 2023-01-17 13:00 | disposition home or self-care (01) ==
LOC: SDC-PAIN 10:43
PROVIDERS: ATTEND Psychiatry & Neurology Pain Medicine
DX: M47.816 Spondylosis without myelopathy or radiculopathy, lumbar region (principal); Z79.899 Other long term (current) drug therapy
CPT/HCPCS: 64493; 64494; 72020; 77002; J1030; J2704

== ENCOUNTER 2023-01-31 09:44 | Day surgery (SDC) | payer MEDICARE ==
[2023-01-31] MEDS ORDERED: BUPIVACAINE 0.5% VIAL IJ ONE (09:45)
[2023-01-31] MEDS ORDERED: LIDOCAINE HCL 1% 50 MG/5 ML VL PF IJ ONE (09:45)
[2023-01-31] MEDS ORDERED: Depo-Medrol 40 MG/ML IM ONE (09:45)
[2023-01-31] MEDS ORDERED: DIPRIVAN 200 MG/20 ML IV ONE (11:46)
--- NOTE | 2023-01-31 13:48 | XRAY ---
Indication: Right L4-S1 RFA. Intraoperative fluoroscopy provided for 28 seconds. 3 digital spot image submitted for interpretation demonstrates posterior needle tips projecting over the expected right L4-S1 nerve roots. Correlate with intraoperative findings/report. Incidental bilateral L4-S1 fusion hardware.
--- NOTE | 2023-01-31 14:18 | XRAY ---
28 seconds of fluoroscopy was used in surgery for a right L4-S1 RFA.
== END 2023-01-31 12:20 | disposition home or self-care (01) ==
LOC: SDC-PAIN 09:44
PROVIDERS: ATTEND Psychiatry & Neurology Pain Medicine
DX: M47.816 Spondylosis without myelopathy or radiculopathy, lumbar region (principal); I10 Essential (primary) hypertension; Z79.899 Other long term (current) drug therapy
CPT/HCPCS: 64635; 64636; 72100; 77002; 99100; J1030; J2001; J2704

== ENCOUNTER 2023-02-07 10:04 | Day surgery (SDC) | payer MEDICARE ==
[2023-02-07] MEDS ORDERED: BUPIVACAINE 0.5% VIAL IJ ONE (10:05)
[2023-02-07] MEDS ORDERED: Depo-Medrol 40 MG/ML IM ONE (10:05)
[2023-02-07] MEDS ORDERED: LIDOCAINE HCL 1% 50 MG/5 ML VL PF IJ ONE (10:05)
[2023-02-07] MEDS ORDERED: DIPRIVAN 200 MG/20 ML IV ONE (11:34)
[2023-02-07] MEDS ORDERED: Lactated Ringers 1,000 ML IV ONE (14:17)
--- NOTE | 2023-02-07 16:11 | XRAY ---
Indication: Left L4-S1 RFA. Intraoperative fluoroscopy provided 21 seconds. 3 digital spot images submitted for interpretation demonstrates posterior needle tips projecting over the expected left L4-S1 nerve roots. Correlate with intraoperative findings/report. Incidental bilateral L4-S1 fusion hardware.
--- NOTE | 2023-02-07 19:39 | XRAY ---
21 seconds of fluoroscopy was used in surgery for a left L4-S1 RFA.
== END 2023-02-07 11:46 | disposition home or self-care (01) ==
LOC: SDC-PAIN 10:04
PROVIDERS: ATTEND Psychiatry & Neurology Pain Medicine
DX: M47.816 Spondylosis without myelopathy or radiculopathy, lumbar region (principal); Z79.899 Other long term (current) drug therapy
CPT/HCPCS: 64635; 64636; 72100; 77002; 99100; J1030; J2001; J2704

== ENCOUNTER 2023-04-19 10:51 | Day surgery (SDC) | payer MEDICARE ==
[2023-04-19] MEDS ORDERED: Depo-Medrol 40 MG/ML IM ONE (10:52)
[2023-04-19] MEDS ORDERED: BUPIVACAINE 0.5% VIAL IJ ONE (10:52)
[2023-04-19] MEDS ORDERED: DIPRIVAN 200 MG/20 ML IV ONE (13:19)
--- NOTE | 2023-04-19 14:20 | XRAY ---
Indication: Bilateral SI joints injection. Intraoperative fluoroscopy provided for 17 seconds. 5 digital spot images submitted for interpretation demonstrate posterior needle tip projecting over the left and right SI joint. Correlate with intraoperative findings/report. Incidental multiple bilateral L4-S1 fusion hardware.
--- NOTE | 2023-04-19 14:42 | XRAY ---
17 seconds of fluoroscopy was used in surgery for a bilateral sacroiliac joint injection.
[2023-04-19] MEDS ORDERED: Lactated Ringers 1,000 ML IV ONE (15:35)
== END 2023-04-19 13:47 | disposition home or self-care (01) ==
LOC: SDC-PAIN 10:51
PROVIDERS: ATTEND Psychiatry & Neurology Pain Medicine
DX: M46.1 Sacroiliitis, not elsewhere classified (principal); Z79.899 Other long term (current) drug therapy
CPT/HCPCS: 27096; 72202; 77002; G0260; 99100; J1030; J2704

== ENCOUNTER 2023-07-11 11:09 | Day surgery (SDC) | payer OTHER ==
[2023-07-11] MEDS ORDERED: Depo-Medrol 40 MG/ML IM ONE (11:10)
[2023-07-11] MEDS ORDERED: LIDOCAINE HCL 1% 50 MG/5 ML VL PF IJ ONE (11:10)
[2023-07-11] MEDS ORDERED: BUPIVACAINE 0.5% VIAL IJ ONE ×2 (11:10)
[2023-07-11] MEDS ORDERED: DIPRIVAN 200 MG/20 ML IV ONE (13:38)
[2023-07-11] MEDS ORDERED: Lactated Ringers 1,000 ML IV ONE (15:05)
--- NOTE | 2023-07-11 17:06 | XRAY ---
Indication: Right SI joint RFA. Intraoperative fluoroscopy provided for 36 seconds. 3 digital spot image submitted for interpretation demonstrates 4 posterior needle tips projecting over the right sacrum. Correlate with intraoperative findings/report. Incidental incompletely visualized multilevel bilateral lumbosacral fusion hardware.
--- NOTE | 2023-07-11 17:21 | XRAY ---
36 seconds of fluoroscopy was used in surgery for a right sacroiliac joint injection.
== END 2023-07-11 14:22 | disposition home or self-care (01) ==
LOC: SDC-PAIN 11:09
PROVIDERS: ATTEND Psychiatry & Neurology Pain Medicine
DX: M47.816 Spondylosis without myelopathy or radiculopathy, lumbar region (principal)
CPT/HCPCS: 64625; 72170; 77002; 99100; J1030; J2001; J2704

== ENCOUNTER 2023-07-18 11:24 | Day surgery (SDC) | payer OTHER ==
[2023-07-18] MEDS ORDERED: Depo-Medrol 40 MG/ML IM ONE (11:25)
[2023-07-18] MEDS ORDERED: BUPIVACAINE 0.5% VIAL IJ ONE (11:25)
[2023-07-18] MEDS ORDERED: LIDOCAINE HCL 1% 50 MG/5 ML VL PF IJ ONE (11:25)
[2023-07-18] MEDS ORDERED: DIPRIVAN 200 MG/20 ML IV ONE (13:41)
--- NOTE | 2023-07-18 14:32 | XRAY ---
Indication: Left SI joint RFA. Intraoperative fluoroscopy provided for 29 seconds. 2 digital spot images submitted for interpretation demonstrates 4 posterior needle tip projecting over the left sacrum medial to SI joint. Correlate with intraoperative findings/report. Incidental incompletely visualized multilevel bilateral lumbosacral fusion hardware.
[2023-07-18] MEDS ORDERED: Lactated Ringers 1,000 ML IV ONE (14:54)
--- NOTE | 2023-07-18 15:00 | XRAY ---
29 seconds of fluoroscopy was used in surgery for a left sacroiliac joint RFA.
== END 2023-07-18 14:16 | disposition home or self-care (01) ==
LOC: SDC-PAIN 11:24
PROVIDERS: ATTEND Psychiatry & Neurology Pain Medicine
DX: M46.1 Sacroiliitis, not elsewhere classified (principal)
CPT/HCPCS: 64625; 72170; 77002; 99100; J1030; J2001; J2704

== ENCOUNTER 2023-10-31 23:47 | Observation (INO) | payer OTHER ==
--- NOTE | 2023-11-01 00:13 | ERPHSYRPT ---
- History of Present Illness Time Seen by Provider: 10/31/23 23:55 Historian: patient Exam Limitations: no limitations Patient Subjective Stated Complaint: pt states "My chest ached all day and around 9 pm when I was sitting on the couch, my L arm started hurting." Triage Nursing Assessment: pt ambulatory to bed by self with at bedside, pt alert and oriented x3, skin pwd, pt c/o L sided chest pain that radiates to L arm, the chest pain was all day yesterday per patient but around 2100, the pain radiated to L arm, bilateral radial pulses equal and strong Physician History: 73-year-old male history of hypertension hyperlipidemia presents to our ED for evaluation of chest pain that started this morning at 9 AM. Patient states that the pain then started radiating into the left arm. Symptoms have been constant throughout the day. No trauma no fever. No associated nausea vomiting or diaphoresis. Patient denies a history of the same. Significant other at bedside. They voiced no other complaints or concerns at this time. Portions of this note were created with voice recognition technology. There may be grammatical, spelling, punctuation or sound alike errors Timing/Duration: today Activities at Onset: none (Pain started while sitting on couch) Quality: aching Location: substernal Chest Pain Radiation: arm Severity of Pain-Max: moderate Modifying Factors: Improves With: nothing Associated Symptoms: denies symptoms, No shortness of breath, No syncope, No dizziness Prior Chest Pain/Cardiac Workup: no prior chest pain Nitro Today/Relief: no nitro taken today Aspirin Treatment Today: no aspirin today Allergies/Adverse Reactions: terazosin Allergy (Verified 11/01/23 00:13) Home Medications: Amlodipine Besylate 5 mg [Norvasc 5 mg] 5 mg PO DAILY 02/28/13 [History] Celecoxib 100 mg [celeBREX 100 MG] 200 mg PO DAILY 02/28/13 [History] Gabapentin [Neurontin ] 600 mg PO QID 02/28/13 [History] Hydrocodone /APAP 7.5/325 mg [[place] 7.5/325 mg Tab] 1 tab PO Q6HPRN PRN 02/28/13 [History] Multivitamin [Multi-Vitamin Daily] 1 each PO DAILY 02/28/13 [History] [place] 3/Dha/Epa/Vitamin D3 [[place]-3 + Vitamin D3 Softgel] 1 each PO DAILY 02/28/13 [History] Omeprazole 20 MG [Prilosec 20 mg] 20 mg PO DAILY 02/28/13 [History] Simvastatin 20Mg [Zocor 20Mg] 20 mg PO DAILY 02/28/13 [History] Tamsulosin HCl 0.4 mg [Flomax 0.4 MG] 0.4 mg PO HS 02/28/13 [History] Hx Tetanus, Diphtheria Vaccination/Date Given: Yes Hx Influenza Vaccination/Date Given: [facility] ([facility]) Hx Pneumococcal Vaccination/Date Given: Yes ([facility]) Immunizations Up to Date: Yes Travel Risk - International Travel Have you traveled outside of the country in past 3 weeks: No - Coronavirus Screening Are you exhibiting any of the following symptoms?: No - Vaccine Status Have you recieved a Covid-19 vaccination: Yes 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 - Review of Systems Constitutional: No Symptoms, No Fever, No Chills Eyes: No Symptoms Ears, Nose, & Throat: No Symptoms Respiratory: No Symptoms, No Cough, No Dyspnea Cardiac: No Symptoms, No Chest Pain, No Edema, No Syncope Abdominal/Gastrointestinal: No Symptoms, No Abdominal Pain, No Nausea, No Vomiti ng, No Diarrhea Genitourinary Symptoms: No Symptoms, No Dysuria Musculoskeletal: No Symptoms, No Back Pain, No Neck Pain Skin: No Symptoms, No Rash Neurological: No Symptoms, No Dizziness, No Focal Weakness, No Sensory Changes Psychological: No Symptoms Endocrine: No Symptoms Hematologic/Lymphatic: No Symptoms Immunological/Allergic: No Symptoms All Other Systems: Reviewed and Negative - Past Medical History Pertinent Past Medical History: Yes Neurological History: No Pertinent History ENT History: No Pertinent History Cardiac History: High Cholesterol, Hypertension Respiratory History: No Pertinent History Endocrine Medical History: No Pertinent History Musculoskeletal History: Arthritis GI Medical History: No Pertinent History History: No Pertinent History Psycho-Social History: No Pertinent History Male Reproductive Disorders: Prostate Problems Other Medical History: left hydrocele - Past Surgical History Past Surgical History: Yes Neuro Surgical History: No Pertinent History Cardiac: No Pertinent History Respiratory: No Pertinent History Gastrointestinal: Appendectomy Genitourinary: No Pertinent History Musculoskeletal: Other Male Surgical History: No Pertinent History Other Surgical History: BACK SURGERY, hip replacement (left) - Social History Smoking Status: Current every day smoker How long have you smoked: 60 years Exposure to second hand smoke: No Drug Use: none Patient Lives Alone: Yes - Nursing Vital Signs Nursing Vital Signs: Initial Vital Signs Temperature 97.9 F 10/31/23 23:48 Pulse Rate 59 L 10/31/23 23:48 Respiratory Rate 20 10/31/23 23:48 Blood Pressure 181/78 10/31/23 23:48 O2 Sat by Pulse Oximetry 97 10/31/23 23:48 Pain Scale Pain Intensity 6 - Physical Exam General Appearance: no apparent distress, alert Eye Exam: PERRL/EOMI, eyes nml inspection Ears, Nose, Throat Exam: normal ENT inspection, moist mucous membranes Neck Exam: normal inspection, non-tender, supple, full range of motion Respiratory Exam: normal breath sounds, lungs clear, airway intact, No respiratory distress Cardiovascular Exam: regular rate/rhythm, normal heart sounds Gastrointestinal/Abdomen Exam: soft, No tenderness, No mass Back Exam: normal inspection, No CVA tenderness, No vertebral tenderness Extremity Exam: normal inspection, normal range of motion Neurologic Exam: alert, oriented x 3, cooperative, normal mood/affect, sensation nml, No motor deficits Skin Exam: normal color, warm, dry SpO2 Interpretation: normal SpO2: 97 O2 Delivery: Room Air - Course Nursing assessment & vital signs reviewed: Yes EKG Interpreted by Me: RATE (59), Sinus Rhythm, NORMAL AXIS, NORMAL INTERVALS Ordered Tests: Active Orders 24 hr Category Date Time Status Infection Control Nurse STAT Care 10/31/23 23:52 Active EKG-ER Only STAT Care 10/31/23 23:49 Active IV Insertion STAT Care 10/31/23 23:49 Active Pulse Oximetry (ED) STAT Care 10/31/23 23:49 Active CHEST 1 VIEW (PORTABLE) Stat Exams 11/01/23 01:01 Ordered TROPONIN Q4H Lab 11/01/23 03:50 Ordered TROPONIN Q4H Lab 11/01/23 07:50 Ordered Medication Summary Discontinued Medications Generic Name Dose Route Start Last Admin Trade Name Freq PRN Reason Stop Dose Admin Aspirin 324 mg 11/01/23 00:38 11/01/23 00:49 Aspirin 81 Mg Tab.Chew PO 11/01/23 00:39 324 mg STAT ONE Administration Aspirin Confirm 11/01/23 00:45 Aspirin 81 Mg Tab.Chew Administered 11/01/23 00:46 Dose 324 mg .ROUTE .STK-MED ONE Nitroglycerin 1 gm 11/01/23 00:38 11/01/23 00:49 Nitroglycerin 1 Gm Packet TOP 11/01/23 00:39 1 gm STAT ONE Administration Nitroglycerin Confirm 11/01/23 00:46 Nitroglycerin 1 Gm Packet Administered 11/01/23 00:47 Dose 1 gm .ROUTE .STK-MED ONE Lab/Rad Data: Laboratory Result Diagrams 10/31/23 00:00 10/31/23 00:00 Laboratory Results 10/31/23 10/31/23 10/31/23 Range/Units 00:00 00:00 00:00 WBC (4.0-10.5) x10^3/uL RBC (4.1-5.6) x10^6/uL Hgb (12.5-18.0) g/dL Hct (42-50) % MCV (78-100) fL MCH (26-32) pg MCHC (32-36) g/dL RDW (11.5-14.0) % Plt Count (150-450) x10^3/uL MPV (7.5-11.0) fL Gran % (36.0-66.0) % Immature Gran % (Auto) (0.00-0.4) % Nucleat RBC Rel Count (0.00-0.1) % Eos # (Auto) (0-0.5) x10^3/uL Immature Gran # (Auto) (0.00-0.03) x10^3u/L Absolute Lymphs (auto) (1.0-4.6) x10^3/uL Absolute Monos (auto) (0.0-1.3) x10^3/uL Absolute Nucleated RBC (0.00-0.01) x10^3u/L Lymphocytes % (24.0-44.0) % Monocytes % (0.0-12.0) % Eosinophils % (0.00-5.0) % Basophils % (0.0-0.4) % Absolute Granulocytes (1.4-6.9) x10^3/uL Basophils # (0-0.4) x10^3/uL D-Dimer 0.51 H (0.0-0.50) mg/L Sodium 137 (137-145) mmol/L Potassium 4.3 (3.5-5.1) mmol/L Chloride 107 (98-107) mmol/L Carbon Dioxide 27 (22-30) mmol/L Anion Gap 7.3 (5-15) MEQ/L BUN 24 H (9-20) mg/dL Creatinine 1.47 H (0.66-1.25) mg/dL Estimated GFR 49.4 ML/MIN Glucose 86 (74-106) mg/dL Calcium 9.2 (8.4-10.2) mg/dL Total Bilirubin 0.40 (0.2-1.3) mg/dL AST 26 (17-59) U/L ALT 26 (0-50) U/L Alkaline Phosphatase 78 (38-126) U/L Troponin I < 0.012 (0.000-0.034) ng/mL NT-Pro-B Natriuret Pep 51.6 (<300) pg/mL Serum Total Protein 6.6 (6.3-8.2) g/dL Albumin 4.1 (3.5-5.0) g/dL 10/31/23 Range/Units 00:00 WBC 8.5 (4.0-10.5) x10^3/uL RBC 4.16 (4.1-5.6) x10^6/uL Hgb 13.8 (12.5-18.0) g/dL Hct 42.3 (42-50) % MCV 101.7 H (78-100) fL MCH 33.2 H (26-32) pg MCHC 32.6 (32-36) g/dL RDW 12.5 (11.5-14.0) % Plt Count 179 (150-450) x10^3/uL MPV 10.0 (7.5-11.0) fL Gran % 58.1 (36.0-66.0) % Immature Gran % (Auto) 0.2 (0.00-0.4) % Nucleat RBC Rel Count 0.0 (0.00-0.1) % Eos # (Auto) 0.25 (0-0.5) x10^3/uL Immature Gran # (Auto) 0.02 (0.00-0.03) x10^3u/L Absolute Lymphs (auto) 2.57 (1.0-4.6) x10^3/uL Absolute Monos (auto) 0.66 (0.0-1.3) x10^3/uL Absolute Nucleated RBC 0.00 (0.00-0.01) x10^3u/L Lymphocytes % 30.4 (24.0-44.0) % Monocytes % 7.8 (0.0-12.0) % Eosinophils % 3.0 (0.00-5.0) % Basophils % 0.5 (0.0-0.4) % Absolute Granulocytes 4.91 (1.4-6.9) x10^3/uL Basophils # 0.04 (0-0.4) x10^3/uL D-Dimer (0.0-0.50) mg/L Sodium (137-145) mmol/L Potassium (3.5-5.1) mmol/L Chloride (98-107) mmol/L Carbon Dioxide (22-30) mmol/L Anion Gap (5-15) MEQ/L BUN (9-20) mg/dL Creatinine (0.66-1.25) mg/dL Estimated GFR ML/MIN Glucose (74-106) mg/dL Calcium (8.4-10.2) mg/dL Total Bilirubin (0.2-1.3) mg/dL AST (17-59) U/L ALT (0-50) U/L Alkaline Phosphatase (38-126) U/L Troponin I (0.000-0.034) ng/mL NT-Pro-B Natriuret Pep (<300) pg/mL Serum Total Protein (6.3-8.2) g/dL Albumin (3.5-5.0) g/dL - Progress Progress: improved Air Movement: good Progress Note: 11/01/23 01:06 heart score 5 Blood Culture(s) Obtained: No Antibiotics given: No Counseled pt/family regarding: lab results, diagnosis, rad results - Departure Departure Disposition: Observation Clinical Impression: Chest pain, ACS (acute coronary syndrome), Acute renal injury Condition: Stable Critical Care Time: No Referrals: [facility],'[facility] [Primary Care Provider] - Follow up/PCP as directed
[2023-11-01 00:16] LABS: Absolute Neutrophil Ct (ANC) 4.91 x10^3/uL (1.4-6.9); BASOPHIL % 0.5 % (0.0-0.4); Basophil (Absolute #) 0.04 x10^3/uL (0-0.4); Eosinophil (Absolute #) 0.25 x10^3/uL (0-0.5); Hematocrit 42.3 % (42-50); Hemoglobin 13.8 g/dL (12.5-18.0); IMMATURE GRAN # 0.02 x10^3u/L (0.00-0.03); IMMATURE GRAN % 0.2 % (0.00-0.4); Lymphocyte (Absolute #) 2.57 x10^3/uL (1.0-4.6); Lymphocytes % 30.4 % (24.0-44.0); Mean Cell Volume 101.7 fL (78-100); Mean Corpuscular Hemoglobin 33.2 pg (26-32); Mean Corpuscular Hgb Concent. 32.6 g/dL (32-36); Monocyte (Absolute #) 0.66 x10^3/uL (0.0-1.3); Monocytes % 7.8 % (0.0-12.0); Neutrophil % 58.1 % (36.0-66.0); Platelet Count 179 x10^3/uL (150-450); Red Blood Count 4.16 x10^6/uL (4.1-5.6); Red Cell Distribution Width 12.5 % (11.5-14.0); White Blood Count 8.5 x10^3/uL (4.0-10.5)
[2023-11-01 00:30] LABS: ALBUMIN 4.1 g/dL (3.5-5.0); BILIRUBIN,TOTAL 0.4 mg/dL (0.2-1.3); Calcium 9.2 mg/dL (8.4-10.2); Creatinine 1 1.47 mg/dL (0.66-1.25); EST GLOMERULAR FILTRATION RATE 49.4 ML/MIN; Total Protein 6.6 g/dL (6.3-8.2)
[2023-11-01 00:32] LABS: ANION GAP 7.3 MEQ/L (5-15); Potassium 4.3 mmol/L (3.5-5.1)
[2023-11-01 00:41] LABS: NT PRO BNPII 51.6 pg/mL (<300); TROPONIN < 0.012 ng/mL (0.000-0.034)
[2023-11-01] MEDS ORDERED: BABY ASPIRIN 81 MG CHEW ONE (00:45)
[2023-11-01] MEDS ORDERED: NITRO-BID 2% UD PACKETS ONE (00:46)
[2023-11-01] MEDS: NITRO-BID 2% UD PACKETS TOP ONE (00:49)
[2023-11-01] MEDS: BABY ASPIRIN 81 MG CHEW PO ONE (00:49)
--- NOTE | 2023-11-01 01:29 | ERPHSYRPT ---
- History of Present Illness Time Seen by Provider: 10/31/23 23:55 Patient Subjective Stated Complaint: pt states "My chest ached all day and around 9 pm when I was sitting on the couch, my L arm started hurting." Triage Nursing Assessment: pt ambulatory to bed by self with at bedside, pt alert and oriented x3, skin pwd, pt c/o L sided chest pain that radiates to L arm, the chest pain was all day yesterday per patient but around 2100, the pain radiated to L arm, bilateral radial pulses equal and strong Physician History: 73-year-old male history of hypertension hyperlipidemia, current smoker, history of sleep apnea. Presents to our ED for evaluation of chest pain. Chest pain started yesterday. Chest pain has been constant. Today at approximately 9 PM chest pain started radiating down his left arm. No associated symptomology. No nausea vomiting or diaphoresis. Symptoms have been constant. No trauma no fever. Patient denies history of the same. at bedside. They voiced no other complaints or concerns at this time. Portions of this note were created with voice recognition technology. There may be grammatical, spelling, punctuation or sound alike errors Timing/Duration: yesterday Activities at Onset: none (Pain started while sitting on the couch.) Quality: aching Location: substernal Chest Pain Radiation: arm Severity of Pain-Max: moderate Severity of Pain-Current: mild Modifying Factors: Improves With: nothing Associated Symptoms: denies symptoms Prior Chest Pain/Cardiac Workup: no prior chest pain Nitro Today/Relief: no nitro taken today Aspirin Treatment Today: no aspirin today Allergies/Adverse Reactions: terazosin Allergy (Verified 11/01/23 00:13) Home Medications: Amlodipine Besylate 5 mg [Norvasc 5 mg] 5 mg PO DAILY 02/28/13 [History] Celecoxib 100 mg [celeBREX 100 MG] 200 mg PO DAILY 02/28/13 [History] Gabapentin [Neurontin ] 600 mg PO QID 02/28/13 [History] Hydrocodone /APAP 7.5/325 mg [[place] 7.5/325 mg Tab] 1 tab PO Q6HPRN PRN 02/28/13 [History] Multivitamin [Multi-Vitamin Daily] 1 each PO DAILY 02/28/13 [History] [place] 3/Dha/Epa/Vitamin D3 [[place]-3 + Vitamin D3 Softgel] 1 each PO DAILY 02/28/13 [History] Omeprazole 20 MG [Prilosec 20 mg] 20 mg PO DAILY 02/28/13 [History] Simvastatin 20Mg [Zocor 20Mg] 20 mg PO DAILY 02/28/13 [History] Tamsulosin HCl 0.4 mg [Flomax 0.4 MG] 0.4 mg PO HS 02/28/13 [History] Hx Tetanus, Diphtheria Vaccination/Date Given: Yes Hx Influenza Vaccination/Date Given: Yes ([place]) Hx Pneumococcal Vaccination/Date Given: Yes ([place]) Immunizations Up to Date: Yes Travel Risk - International Travel Have you traveled outside of the country in past 3 weeks: No - Coronavirus Screening Are you exhibiting any of the following symptoms?: No - Vaccine Status Have you recieved a Covid-19 vaccination: Yes [employer]: [employer] - Vaccination Dates Date of 2cond Vaccination (if applicable): ? - Review of Systems Constitutional: No Symptoms, No Fever, No Chills Eyes: No Symptoms Ears, Nose, & Throat: No Symptoms Respiratory: No Symptoms, No Cough, No Dyspnea Cardiac: No Symptoms, No Chest Pain, No Edema, No Syncope Abdominal/Gastrointestinal: No Symptoms, No Abdominal Pain, No Nausea, No Vomiting, No Diarrhea Genitourinary Symptoms: No Symptoms, No Dysuria Musculoskeletal: No Symptoms, No Back Pain, No Neck Pain Skin: No Symptoms, No Rash Neurological: No Symptoms, No Dizziness, No Focal Weakness, No Sensory Changes Psychological: No Symptoms Endocrine: No Symptoms Hematologic/Lymphatic: No Symptoms Immunological/Allergic: No Symptoms All Other Systems: Reviewed and Negative - Past Medical History Pertinent Past Medical History: Yes Neurological History: No Pertinent History ENT History: No Pertinent History Cardiac History: High Cholesterol, Hypertension Respiratory History: No Pertinent History Endocrine Medical History: No Pertinent History Musculoskeletal History: Arthritis GI Medical History: No Pertinent History History: No Pertinent History Psycho-Social History: No Pertinent History Male Reproductive Disorders: Prostate Problems Other Medical History: left hydrocele - Past Surgical History Past Surgical History: Yes Neuro Surgical History: No Pertinent History Cardiac: No Pertinent History Respiratory: No Pertinent History Gastrointestinal: Appendectomy Genitourinary: No Pertinent History Musculoskeletal: Other Male Surgical History: No Pertinent History Other Surgical History: BACK SURGERY, hip replacement (left) - Social History Smoking Status: Current every day smoker How long have you smoked: 60 years Exposure to second hand smoke: No Drug Use: none Patient Lives Alone: Yes - Nursing Vital Signs Nursing Vital Signs: Initial Vital Signs Temperature 97.9 F 10/31/23 23:48 Pulse Rate 59 L 10/31/23 23:48 Respiratory Rate 20 10/31/23 23:48 Blood Pressure 181/78 10/31/23 23:48 O2 Sat by Pulse Oximetry 97 10/31/23 23:48 Pain Scale Pain Intensity 6 - Physical Exam General Appearance: no apparent distress, alert Eye Exam: PERRL/EOMI, eyes nml inspection Ears, Nose, Throat Exam: moist mucous membranes Neck Exam: normal inspection, non-tender, supple, full range of motion Respiratory Exam: normal breath sounds, lungs clear, airway intact, No respiratory distress Cardiovascular Exam: regular rate/rhythm, normal heart sounds Gastrointestinal/Abdomen Exam: soft, No tenderness, No mass Back Exam: normal inspection, No CVA tenderness, No vertebral tenderness Extremity Exam: normal inspection, normal range of motion Neurologic Exam: alert, oriented x 3, cooperative, normal mood/affect, sensation nml, No motor deficits Skin Exam: normal color, warm, dry Lymphatic Exam: No adenopathy SpO2 Interpretation: normal SpO2: 96 O2 Delivery: Room Air - Course Nursing assessment & vital signs reviewed: Yes - Radiology Exams Chest X-ray Interpretation: Interpreted by me (Nonacute chest with chronic features) Ordered Tests: Active Orders 24 hr Category Date Time Status Charge Attendant STAT Care 10/31/23 23:52 Active EKG-ER Only STAT Care 10/31/23 23:49 Active IV Insertion STAT Care 10/31/23 23:49 Active Pulse Oximetry (ED) STAT Care 10/31/23 23:49 Active CHEST 1 VIEW (PORTABLE) Stat Exams 11/01/23 01:01 Taken TROPONIN Q4H Lab 11/01/23 03:50 Ordered TROPONIN Q4H Lab 11/01/23 07:50 Ordered Medication Summary Discontinued Medications Generic Name Dose Route Start Last Admin Trade Name Freq PRN Reason Stop Dose Admin Aspirin 324 mg 11/01/23 00:38 11/01/23 00:49 Aspirin 81 Mg Tab.Chew PO 11/01/23 00:39 324 mg STAT ONE Administration Aspirin Confirm 11/01/23 00:45 Aspirin 81 Mg Tab.Chew Administered 11/01/23 00:46 Dose 324 mg .ROUTE .STK-MED ONE Nitroglycerin 1 gm 11/01/23 00:38 11/01/23 00:49 Nitroglycerin 1 Gm Packet TOP 11/01/23 00:39 1 gm STAT ONE Administration Nitroglycerin Confirm 11/01/23 00:46 Nitroglycerin 1 Gm Packet Administered 11/01/23 00:47 Dose 1 gm .ROUTE .STK-MED ONE Lab/Rad Data: Laboratory Result Diagrams 10/31/23 00:00 10/31/23 00:00 Laboratory Results 10/31/23 10/31/23 10/31/23 Range/Units 00:00 00:00 00:00 WBC (4.0-10.5) x10^3/uL RBC (4.1-5.6) x10^6/uL Hgb (12.5-18.0) g/dL Hct (42-50) % MCV (78-100) fL MCH (26-32) pg MCHC (32-36) g/dL RDW (11.5-14.0) % Plt Count (150-450) x10^3/uL MPV (7.5-11.0) fL Gran % (36.0-66.0) % Immature Gran % (Auto) (0.00-0.4) % Nucleat RBC Rel Count (0.00-0.1) % Eos # (Auto) (0-0.5) x10^3/uL Immature Gran # (Auto) (0.00-0.03) x10^3u/L Absolute Lymphs (auto) (1.0-4.6) x10^3/uL Absolute Monos (auto) (0.0-1.3) x10^3/uL Absolute Nucleated RBC (0.00-0.01) x10^3u/L Lymphocytes % (24.0-44.0) % Monocytes % (0.0-12.0) % Eosinophils % (0.00-5.0) % Basophils % (0.0-0.4) % Absolute Granulocytes (1.4-6.9) x10^3/uL Basophils # (0-0.4) x10^3/uL D-Dimer 0.51 H (0.0-0.50) mg/L Sodium 137 (137-145) mmol/L Potassium 4.3 (3.5-5.1) mmol/L Chloride 107 (98-107) mmol/L Carbon Dioxide 27 (22-30) mmol/L Anion Gap 7.3 (5-15) MEQ/L BUN 24 H (9-20) mg/dL Creatinine 1.47 H (0.66-1.25) mg/dL Estimated GFR 49.4 ML/MIN Glucose 86 (74-106) mg/dL Calcium 9.2 (8.4-10.2) mg/dL Total Bilirubin 0.40 (0.2-1.3) mg/dL AST 26 (17-59) U/L ALT 26 (0-50) U/L Alkaline Phosphatase 78 (38-126) U/L Troponin I < 0.012 (0.000-0.034) ng/mL NT-Pro-B Natriuret Pep 51.6 (<300) pg/mL Serum Total Protein 6.6 (6.3-8.2) g/dL Albumin 4.1 (3.5-5.0) g/dL 10/31/23 Range/Units 00:00 WBC 8.5 (4.0-10.5) x10^3/uL RBC 4.16 (4.1-5.6) x10^6/uL Hgb 13.8 (12.5-18.0) g/dL Hct 42.3 (42-50) % MCV 101.7 H (78-100) fL MCH 33.2 H (26-32) pg MCHC 32.6 (32-36) g/dL RDW 12.5 (11.5-14.0) % Plt Count 179 (150-450) x10^3/uL MPV 10.0 (7.5-11.0) fL Gran % 58.1 (36.0-66.0) % Immature Gran % (Auto) 0.2 (0.00-0.4) % Nucleat RBC Rel Count 0.0 (0.00-0.1) % Eos # (Auto) 0.25 (0-0.5) x10^3/uL Immature Gran # (Auto) 0.02 (0.00-0.03) x10^3u/L Absolute Lymphs (auto) 2.57 (1.0-4.6) x10^3/uL Absolute Monos (auto) 0.66 (0.0-1.3) x10^3/uL Absolute Nucleated RBC 0.00 (0.00-0.01) x10^3u/L Lymphocytes % 30.4 (24.0-44.0) % Monocytes % 7.8 (0.0-12.0) % Eosinophils % 3.0 (0.00-5.0) % Basophils % 0.5 (0.0-0.4) % Absolute Granulocytes 4.91 (1.4-6.9) x10^3/uL Basophils # 0.04 (0-0.4) x10^3/uL D-Dimer (0.0-0.50) mg/L Sodium (137-145) mmol/L Potassium (3.5-5.1) mmol/L Chloride (98-107) mmol/L Carbon Dioxide (22-30) mmol/L Anion Gap (5-15) MEQ/L BUN (9-20) mg/dL Creatinine (0.66-1.25) mg/dL Estimated GFR ML/MIN Glucose (74-106) mg/dL Calcium (8.4-10.2) mg/dL Total Bilirubin (0.2-1.3) mg/dL AST (17-59) U/L ALT (0-50) U/L Alkaline Phosphatase (38-126) U/L Troponin I (0.000-0.034) ng/mL NT-Pro-B Natriuret Pep (<300) pg/mL Serum Total Protein (6.3-8.2) g/dL Albumin (3.5-5.0) g/dL - Progress Progress: improved Air Movement: good Progress Note: 73-year-old male history of sleep apnea, current smoker, hyperlipidemia hypertension presents to our ED with 1 day history of chest pain. Pain began radiating to his left arm this evening. No associated nausea vomiting diaphoresis. Physical exam otherwise unremarkable. Initial troponin negative. EKG normal sinus rhythm. Creatinine elevated off of patient's baseline. Patient received nitroglycerin paste as well as aspirin. No active chest pain at this time. Patient's heart score is 5. Patient will require hospitalization for cardiac rule out. Case discussed with Dr. Casas at 1:[address] Casas accepts admission to observation. Plan of care discussed with patient and significant other at bedside. They agree to admission to [facility] for further evaluation and treatment. Portions of this note were created with voice recognition technology. There may be grammatical, spelling, punctuation or sound alike errors Complexity of problem addressed is moderate acute complicated No critical care time Complexity of data reviewed and analyzed is extensive. Test ordered test reviewed. Results analyzed and correlated clinically with history and physical examination. Management discussed with hospitalist who accepts admission to observation. Risk of complication and or risk of morbidity/mortality of patient management is high. Patient requires hospitalization for further evaluation and treatment. Vital stable. Time spent admit patient is approximately 20 minutes. Plan of care established for shared decision making. Portions of this note were created with voice recognition technology. There may be grammatical, spelling, punctuation or sound alike errors 11/01/23 01:42 Blood Culture(s) Obtained: No Antibiotics given: No Discussed with : Yunior Counseled pt/family regarding: lab results, diagnosis, rad results - Departure Departure Disposition: Observation Clinical Impression: Chest pain, ACS (acute coronary syndrome), Acute renal injury Condition: Stable Critical Care Time: No Referrals: [facility]OS[facility],'S [Primary Care Provider] - Follow up/PCP as directed
--- NOTE | 2023-11-01 01:53 | PCM.HP ---
History of Present Illness - Chief Complaint Chief Complaint: Chest pain History of Present Illness: is a 73 year old male. 73-year-old male history of hypertension hyperlipidemia, current smoker, history of sleep apnea. Presents for evaluation of chest pain. Chest pain started ye sterday. Chest pain has been constant. Today at approximately 9 PM chest pain started radiating down his left arm. No associated symptoms No nausea vomiting or diaphoresis. Symptoms have been constant. No trauma no fever. Patient denies history of the same. at bedside. She voiced no other complaints or concerns at this time. - Review of Systems Constitutional: No Fever, No Chills Eyes: No Symptoms Ears, Nose, & Throat: No Symptoms Respiratory: No Cough, No Short Of Breath Cardiac: No Chest Pain, No Edema, No Syncope Abdominal/Gastrointestinal: No Abdominal Pain, No Nausea, No Vomiting, No Diarrhea Genitourinary Symptoms: No Dysuria Musculoskeletal: No Back Pain, No Neck Pain Skin: No Rash Neurological: No Dizziness, No Focal Weakness, No Sensory Changes Psychological: No Symptoms Endocrine: No Symptoms Hematologic/Lymphatic: No Symptoms Immunological/Allergic: No Symptoms Medications & Allergies Home Medications: Home Medication List Amlodipine Besylate 5 mg [Norvasc 5 mg] 5 mg PO DAILY 02/28/13 [History Confirmed 11/01/23] Celecoxib 100 mg [celeBREX 100 MG] 200 mg PO DAILY 02/28/13 [History Confirmed 11/01/23] Gabapentin [Neurontin ] 600 mg PO QID 02/28/13 [History Confirmed 11/01/23] Hydrocodone /APAP 7.5/325 mg [[place] 7.5/325 mg Tab] 1 tab PO Q6HPRN PRN 02/28/13 [History Confirmed 11/01/23] Multivitamin [Multi-Vitamin Daily] 1 each PO DAILY 02/28/13 [History Confirmed 11/01/23] [place] 3/Dha/Epa/Vitamin D3 [[place]-3 + Vitamin D3 Softgel] 1 each PO DAILY 02/28/13 [History Confirmed 11/01/23] Omeprazole 20 MG [Prilosec 20 mg] 20 mg PO DAILY 02/28/13 [History Confirmed 11/01/23] Simvastatin 20Mg [Zocor 20Mg] 20 mg PO DAILY 02/28/13 [History Confirmed 11/01/23] Tamsulosin HCl 0.4 mg [Flomax 0.4 MG] 0.4 mg PO HS 02/28/13 [History Confirmed 11/01/23] Allergies/Adverse Reactions: Allergies Allergy/AdvReac Type Severity Reaction Status Date / Time terazosin Allergy Verified 11/01/23 00:13 - Past Medical History Past Medical History: Yes Neurological History: No Pertinent History ENT History: No Pertinent History Cardiac History: High Cholesterol, Hypertension Respiratory History: No Pertinent History Endocrine Medical History: No Pertinent History Musculoskelatal History: Arthritis GI Medical History: No Pertinent History History: No Pertinent History Pyscho-Social History: No Pertinent History Male Reproductive Disorders: Prostate Problems Comment: left hydrocele - Past Surgical History Past Surgical History: Yes Neuro Surgical History: No Pertinent History Cardiac History: No Pertinent History Respiratory Surgery: No Pertinent History GI Surgical History: Appendectomy Genitourinary Surgical Hx: No Pertinent History Musculskeletal Surgical Hx: Other Male Surgical History: No Pertinent History Other Surgical History: BACK SURGERY, hip replacement (left) - Social History Smoking Status: Current every day smoker How long have you smoked: 60 years Exposure to second hand smoke: No Alcohol: None Drug Use: none - Physical Exam Vital Signs: Vital Signs - 24 hr Temp Pulse Pulse Resp BP BP Pulse Ox 11/01/23 01:45 96 11/01/23 01:00 55 L 15 152/67 93 L 11/01/23 00:56 60 11/01/23 00:30 57 L 18 145/67 96 11/01/23 00:00 55 L 16 156/69 96 10/31/23 23:56 97 10/31/23 23:48 97.9 F 59 L 20 181/78 97 General Appearance: no apparent distress, alert Neurologic Exam: alert, oriented x 3, cooperative, normal mood/affect, nml cerebellar function, nml station & gait, sensation nml, No motor deficits Eye Exam: PERRL/EOMI, eyes nml inspection Ears, Nose, Throat Exam: normal ENT inspection, TMs normal, pharynx normal, moist mucous membranes Neck Exam: normal inspection, non-tender, supple, full range of motion Respiratory Exam: normal breath sounds, lungs clear, No respiratory distress Cardiovascular Exam: regular rate/rhythm, normal heart sounds, normal peripheral pulses Gastrointestinal/Abdomen Exam: soft, normal bowel sounds, No tenderness, No mass Back Exam: normal inspection, normal range of motion, No CVA tenderness, No vertebral tenderness Extremity Exam: normal inspection, normal range of motion, pelvis stable Skin Exam: normal color, warm, dry, No rash Lymphatic Exam: No adenopathy Results - Labs Lab/Micro Results: Lab Results-Last 24 Hours 10/31/23 10/31/23 10/31/23 Range/Units 00:00 00:00 00:00 WBC 8.5 (4.0-10.5) x10^3/uL RBC 4.16 (4.1-5.6) x10^6/uL Hgb 13.8 (12.5-18.0) g/dL Hct 42.3 (42-50) % MCV 101.7 H (78-100) fL MCH 33.2 H (26-32) pg MCHC 32.6 (32-36) g/dL RDW 12.5 (11.5-14.0) % Plt Count 179 (150-450) x10^3/uL MPV 10.0 (7.5-11.0) fL Gran % 58.1 (36.0-66.0) % Immature Gran % (Auto) 0.2 (0.00-0.4) % Nucleat RBC Rel Count 0.0 (0.00-0.1) % Eos # (Auto) 0.25 (0-0.5) x10^3/uL Immature Gran # (Auto) 0.02 (0.00-0.03) x10^3u/L Absolute Lymphs (auto) 2.57 (1.0-4.6) x10^3/uL Absolute Monos (auto) 0.66 (0.0-1.3) x10^3/uL Absolute Nucleated RBC 0.00 (0.00-0.01) x10^3u/L Lymphocytes % 30.4 (24.0-44.0) % Monocytes % 7.8 (0.0-12.0) % Eosinophils % 3.0 (0.00-5.0) % Basophils % 0.5 (0.0-0.4) % Absolute Granulocytes 4.91 (1.4-6.9) x10^3/uL Basophils # 0.04 (0-0.4) x10^3/uL D-Dimer 0.51 H (0.0-0.50) mg/L Sodium 137 (137-145) mmol/L Potassium 4.3 (3.5-5.1) mmol/L Chloride 107 (98-107) mmol/L Carbon Dioxide 27 (22-30) mmol/L Anion Gap 7.3 (5-15) MEQ/L BUN 24 H (9-20) mg/dL Creatinine 1.47 H (0.66-1.25) mg/dL Estimated GFR 49.4 ML/MIN Glucose 86 (74-106) mg/dL Calcium 9.2 (8.4-10.2) mg/dL Total Bilirubin 0.40 (0.2-1.3) mg/dL AST 26 (17-59) U/L ALT 26 (0-50) U/L Alkaline Phosphatase 78 (38-126) U/L Troponin I (0.000-0.034) ng/mL NT-Pro-B Natriuret Pep (<300) pg/mL Serum Total Protein 6.6 (6.3-8.2) g/dL Albumin 4.1 (3.5-5.0) g/dL 10/31/23 Range/Units 00:00 WBC (4.0-10.5) x10^3/uL RBC (4.1-5.6) x10^6/uL Hgb (12.5-18.0) g/dL Hct (42-50) % MCV (78-100) fL MCH (26-32) pg MCHC (32-36) g/dL RDW (11.5-14.0) % Plt Count (150-450) x10^3/uL MPV (7.5-11.0) fL Gran % (36.0-66.0) % Immature Gran % (Auto) (0.00-0.4) % Nucleat RBC Rel Count (0.00-0.1) % Eos # (Auto) (0-0.5) x10^3/uL Immature Gran # (Auto) (0.00-0.03) x10^3u/L Absolute Lymphs (auto) (1.0-4.6) x10^3/uL Absolute Monos (auto) (0.0-1.3) x10^3/uL Absolute Nucleated RBC (0.00-0.01) x10^3u/L Lymphocytes % (24.0-44.0) % Monocytes % (0.0-12.0) % Eosinophils % (0.00-5.0) % Basophils % (0.0-0.4) % Absolute Granulocytes (1.4-6.9) x10^3/uL Basophils # (0-0.4) x10^3/uL D-Dimer (0.0-0.50) mg/L Sodium (137-145) mmol/L Potassium (3.5-5.1) mmol/L Chloride (98-107) mmol/L Carbon Dioxide (22-30) mmol/L Anion Gap (5-15) MEQ/L BUN (9-20) mg/dL Creatinine (0.66-1.25) mg/dL Estimated GFR ML/MIN Glucose (74-106) mg/dL Calcium (8.4-10.2) mg/dL Total Bilirubin (0.2-1.3) mg/dL AST (17-59) U/L ALT (0-50) U/L Alkaline Phosphatase (38-126) U/L Troponin I < 0.012 (0.000-0.034) ng/mL NT-Pro-B Natriuret Pep 51.6 (<300) pg/mL Serum Total Protein (6.3-8.2) g/dL Albumin (3.5-5.0) g/dL - Radiology Impressions Radiology Exams & Impressions: Radiology Procedures Category Date Time Status CHEST 1 VIEW (PORTABLE) Stat Exams 11/01/23 01:01 Taken Assessment/Plan (1) Chest pain Current Visit: Yes Status: Acute Assessment & Plan: chest pain rule out First trop negative, monitor next trop EKG wnl Code(s): R07.9 - CHEST PAIN, UNSPECIFIED Telemedicine Encounter - Telemedicine Encounter Telemedicine Encounter: The entirety of this encounter was performed via Telemedicine"
[2023-11-01 03:43] VITALS: RESP 16
--- NOTE | 2023-11-01 05:34 | PCM.DS ---
Discharge Summary Date of Admission: 11/01/23 01:54 Date of Discharge: 11/01/23 Admitting Physician: ISAAC HAN MD Primary Care Provider: [facility] <LUDY MARTINEZ - Last Filed: 11/01/23 11:03> Date of Admission: 11/01/23 01:54 Admitting Physician: ISAAC HAN MD Primary Care Provider: [facility] <ESTELA JIMENEZ - Last Filed: 11/01/23 20:22> Allergies <LUDY MARTINEZ - Last Filed: 11/01/23 11:03> <ESTELA JIMENEZ - Last Filed: 11/01/23 20:22> Allergies terazosin Allergy (Verified 11/01/23 00:13) Hospital Summary - Hospital Course Hospital Course: is a 73 year old male with a pmhx of hypertension hyperlipidemia, current smoker, history of sleep apnea admitted for evaluation of chest pain and also noted with GUILHERME. Initial EKG and troponins negative. Repeat EKG NS with no acute ischemia ST elevation/deviation. 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 Pain has resolved. GUILHERME resolved. Patient is stable for discharge. Advised smoking cessation and follow up with PCP/cardiology. Discharge Note New Diagnosis:GUILHERME/CP New Medications: none Follow Up: PCP/cardiology Latest Assessment & Plan (1) Chest pain Current Visit: Yes Status: Acute Assessment & Plan: chest pain rule out First trop negative, monitor next trop EKG wnl Code(s): R07.9 - CHEST PAIN, UNSPECIFIED (2) GUILHERME -IVF -Avoid NSAID/ARBS/GOPI -Monitor renal lytes daily (3) Smoker -Nicotine patch, advised cessation I spent 35 minutes [id number] with the patient on the day of discharge performing discharge exam, discussing hospital stay and discharge instructions with patient and caregivers, preparation of discharge records, prescriptions & referral forms and addressing any questions/concerns the patient had as documented above. - Vitals & Intake/Output Vital Signs: Vital Signs Temperature 97.8 F 11/01/23 03:23 Pulse Rate 52 L 11/01/23 04:28 Respiratory Rate 16 11/01/23 03:23 Blood Pressure 162/77 11/01/23 03:23 O2 Sat by Pulse Oximetry 95 11/01/23 04:55 Intake & Output: Intake & Output 10/29/23 10/30/23 10/31/23 11/01/23 11:59 11:59 11:59 11:59 Weight 70.5 kg - Lab Result Diagrams: 11/01/23 04:16 11/01/23 04:16 Lab Results-Last 24 Hrs: Lab Results-Last 24 Hours 10/31/23 10/31/23 10/31/23 Range/Units 00:00 00:00 00:00 WBC 8.5 (4.0-10.5) x10^3/uL RBC 4.16 (4.1-5.6) x10^6/uL Hgb 13.8 (12.5-18.0) g/dL Hct 42.3 (42-50) % MCV 101.7 H (78-100) fL MCH 33.2 H (26-32) pg MCHC 32.6 (32-36) g/dL RDW 12.5 (11.5-14.0) % Plt Count 179 (150-450) x10^3/uL MPV 10.0 (7.5-11.0) fL Gran % 58.1 (36.0-66.0) % Immature Gran % (Auto) 0.2 (0.00-0.4) % Nucleat RBC Rel Count 0.0 (0.00-0.1) % Eos # (Auto) 0.25 (0-0.5) x10^3/uL Immature Gran # (Auto) 0.02 (0.00-0.03) x10^3u/L Absolute Lymphs (auto) 2.57 (1.0-4.6) x10^3/uL Absolute Monos (auto) 0.66 (0.0-1.3) x10^3/uL Absolute Nucleated RBC 0.00 (0.00-0.01) x10^3u/L Lymphocytes % 30.4 (24.0-44.0) % Monocytes % 7.8 (0.0-12.0) % Eosinophils % 3.0 (0.00-5.0) % Basophils % 0.5 (0.0-0.4) % Absolute Granulocytes 4.91 (1.4-6.9) x10^3/uL Basophils # 0.04 (0-0.4) x10^3/uL D-Dimer 0.51 H (0.0-0.50) mg/L Sodium 137 (137-145) mmol/L Potassium 4.3 (3.5-5.1) mmol/L Chloride 107 (98-107) mmol/L Carbon Dioxide 27 (22-30) mmol/L Anion Gap 7.3 (5-15) MEQ/L BUN 24 H (9-20) mg/dL Creatinine 1.47 H (0.66-1.25) mg/dL Estimated GFR 49.4 ML/MIN Glucose 86 (74-106) mg/dL Calcium 9.2 (8.4-10.2) mg/dL Total Bilirubin 0.40 (0.2-1.3) mg/dL AST 26 (17-59) U/L ALT 26 (0-50) U/L Alkaline Phosphatase 78 (38-126) U/L Troponin I (0.000-0.034) ng/mL NT-Pro-B Natriuret Pep (<300) pg/mL Serum Total Protein 6.6 (6.3-8.2) g/dL Albumin 4.1 (3.5-5.0) g/dL 10/31/23 11/01/23 Range/Units 00:00 04:16 WBC (4.0-10.5) x10^3/uL RBC (4.1-5.6) x10^6/uL Hgb (12.5-18.0) g/dL Hct (42-50) % MCV (78-100) fL MCH (26-32) pg MCHC (32-36) g/dL RDW (11.5-14.0) % Plt Count (150-450) x10^3/uL MPV (7.5-11.0) fL Gran % (36.0-66.0) % Immature Gran % (Auto) (0.00-0.4) % Nucleat RBC Rel Count (0.00-0.1) % Eos # (Auto) (0-0.5) x10^3/uL Immature Gran # (Auto) (0.00-0.03) x10^3u/L Absolute Lymphs (auto) (1.0-4.6) x10^3/uL Absolute Monos (auto) (0.0-1.3) x10^3/uL Absolute Nucleated RBC (0.00-0.01) x10^3u/L Lymphocytes % (24.0-44.0) % Monocytes % (0.0-12.0) % Eosinophils % (0.00-5.0) % Basophils % (0.0-0.4) % Absolute Granulocytes (1.4-6.9) x10^3/uL Basophils # (0-0.4) x10^3/uL D-Dimer (0.0-0.50) mg/L Sodium (137-145) mmol/L Potassium (3.5-5.1) mmol/L Chloride (98-107) mmol/L Carbon Dioxide (22-30) mmol/L Anion Gap (5-15) MEQ/L BUN (9-20) mg/dL Creatinine (0.66-1.25) mg/dL Estimated GFR ML/MIN Glucose (74-106) mg/dL Calcium (8.4-10.2) mg/dL Total Bilirubin (0.2-1.3) mg/dL AST (17-59) U/L ALT (0-50) U/L Alkaline Phosphatase (38-126) U/L Troponin I < 0.012 < 0.012 (0.000-0.034) ng/mL NT-Pro-B Natriuret Pep 51.6 (<300) pg/mL Serum Total Protein (6.3-8.2) g/dL Albumin (3.5-5.0) g/dL - Radiology Exams Ordered Rad Exams-Entire Visit: Radiology Procedures Category Date Time Status CHEST 1 VIEW (PORTABLE) Stat Exams 11/01/23 01:01 Taken - Procedures and Test Procedures and Tests throughout Hospitalization: Therapy Orders & Screens 11/01/23 03:43 Smoking Cessation Education ONCE Comment: Diagnosis: Chest pain, acute coronary syndrome, Smoking Status: Current every day smoker How long have you smoked: 60 years Have you smoked in the past 12 months: Yes Approximately how many cigarettes per day: 3/4 PACK Do you dip or chew tobacco: No <LUDY MARTINEZ - Last Filed: 11/01/23 11:03> - Vitals & Intake/Output Vital Signs: Vital Signs Temperature 97.1 F 11/01/23 11:11 Pulse Rate 54 L 11/01/23 11:11 Respiratory Rate 16 11/01/23 11:11 Blood Pressure 155/69 11/01/23 11:11 O2 Sat by Pulse Oximetry 94 L 11/01/23 11:11 Intake & Output: Intake & Output 10/30/23 10/31/23 11/01/23 11/02/23 11:59 11:59 11:59 11:59 Intake Total 240 Balance 240 Weight 70.5 kg - Lab Result Diagrams: 11/01/23 04:16 11/01/23 04:16 Lab Results-Last 24 Hrs: Lab Results-Last 24 Hours 10/31/23 10/31/23 10/31/23 Range/Units 00:00 00:00 00:00 WBC 8.5 (4.0-10.5) x10^3/uL RBC 4.16 (4.1-5.6) x10^6/uL Hgb 13.8 (12.5-18.0) g/dL Hct 42.3 (42-50) % MCV 101.7 H (78-100) fL MCH 33.2 H (26-32) pg MCHC 32.6 (32-36) g/dL RDW 12.5 (11.5-14.0) % Plt Count 179 (150-450) x10^3/uL MPV 10.0 (7.5-11.0) fL Gran % 58.1 (36.0-66.0) % Immature Gran % (Auto) 0.2 (0.00-0.4) % Nucleat RBC Rel Count 0.0 (0.00-0.1) % Eos # (Auto) 0.25 (0-0.5) x10^3/uL Immature Gran # (Auto) 0.02 (0.00-0.03) x10^3u/L Absolute Lymphs (auto) 2.57 (1.0-4.6) x10^3/uL Absolute Monos (auto) 0.66 (0.0-1.3) x10^3/uL Absolute Nucleated RBC 0.00 (0.00-0.01) x10^3u/L Lymphocytes % 30.4 (24.0-44.0) % Monocytes % 7.8 (0.0-12.0) % Eosinophils % 3.0 (0.00-5.0) % Basophils % 0.5 (0.0-0.4) % Absolute Granulocytes 4.91 (1.4-6.9) x10^3/uL Basophils # 0.04 (0-0.4) x10^3/uL D-Dimer 0.51 H (0.0-0.50) mg/L Sodium 137 (137-145) mmol/L Potassium 4.3 (3.5-5.1) mmol/L Chloride 107 (98-107) mmol/L Carbon Dioxide 27 (22-30) mmol/L Anion Gap 7.3 (5-15) MEQ/L BUN 24 H (9-20) mg/dL Creatinine 1.47 H (0.66-1.25) mg/dL Estimated GFR 49.4 ML/MIN Glucose 86 (74-106) mg/dL Calcium 9.2 (8.4-10.2) mg/dL Total Bilirubin 0.40 (0.2-1.3) mg/dL AST 26 (17-59) U/L ALT 26 (0-50) U/L Alkaline Phosphatase 78 (38-126) U/L Troponin I (0.000-0.034) ng/mL NT-Pro-B Natriuret Pep (<300) pg/mL Serum Total Protein 6.6 (6.3-8.2) g/dL Albumin 4.1 (3.5-5.0) g/dL 10/31/23 11/01/23 11/01/23 Range/Units 00:00 04:16 04:16 WBC 9.7 (4.0-10.5) x10^3/uL RBC 4.10 (4.1-5.6) x10^6/uL Hgb 13.5 (12.5-18.0) g/dL Hct 41.5 L (42-50) % MCV 101.2 H (78-100) fL MCH 32.9 H (26-32) pg MCHC 32.5 (32-36) g/dL RDW 12.5 (11.5-14.0) % Plt Count 173 (150-450) x10^3/uL MPV 10.5 (7.5-11.0) fL Gran % 65.2 (36.0-66.0) % Immature Gran % (Auto) 0.2 (0.00-0.4) % Nucleat RBC Rel Count 0.0 (0.00-0.1) % Eos # (Auto) 0.30 (0-0.5) x10^3/uL Immature Gran # (Auto) 0.02 (0.00-0.03) x10^3u/L Absolute Lymphs (auto) 2.27 (1.0-4.6) x10^3/uL Absolute Monos (auto) 0.72 (0.0-1.3) x10^3/uL Absolute Nucleated RBC 0.00 (0.00-0.01) x10^3u/L Lymphocytes % 23.5 L (24.0-44.0) % Monocytes % 7.5 (0.0-12.0) % Eosinophils % 3.1 (0.00-5.0) % Basophils % 0.5 (0.0-0.4) % Absolute Granulocytes 6.29 (1.4-6.9) x10^3/uL Basophils # 0.05 (0-0.4) x10^3/uL D-Dimer (0.0-0.50) mg/L Sodium (137-145) mmol/L Potassium (3.5-5.1) mmol/L Chloride (98-107) mmol/L Carbon Dioxide (22-30) mmol/L Anion Gap (5-15) MEQ/L BUN (9-20) mg/dL Creatinine (0.66-1.25) mg/dL Estimated GFR ML/MIN Glucose (74-106) mg/dL Calcium (8.4-10.2) mg/dL Total Bilirubin (0.2-1.3) mg/dL AST (17-59) U/L ALT (0-50) U/L Alkaline Phosphatase (38-126) U/L Troponin I < 0.012 < 0.012 (0.000-0.034) ng/mL NT-Pro-B Natriuret Pep 51.6 (<300) pg/mL Serum Total Protein (6.3-8.2) g/dL Albumin (3.5-5.0) g/dL 11/01/23 11/01/23 Range/Units 04:16 08:15 WBC (4.0-10.5) x10^3/uL RBC (4.1-5.6) x10^6/uL Hgb (12.5-18.0) g/dL Hct (42-50) % MCV (78-100) fL MCH (26-32) pg MCHC (32-36) g/dL RDW (11.5-14.0) % Plt Count (150-450) x10^3/uL MPV (7.5-11.0) fL Gran % (36.0-66.0) % Immature Gran % (Auto) (0.00-0.4) % Nucleat RBC Rel Count (0.00-0.1) % Eos # (Auto) (0-0.5) x10^3/uL Immature Gran # (Auto) (0.00-0.03) x10^3u/L Absolute Lymphs (auto) (1.0-4.6) x10^3/uL Absolute Monos (auto) (0.0-1.3) x10^3/uL Absolute Nucleated RBC (0.00-0.01) x10^3u/L Lymphocytes % (24.0-44.0) % Monocytes % (0.0-12.0) % Eosinophils % (0.00-5.0) % Basophils % (0.0-0.4) % Absolute Granulocytes (1.4-6.9) x10^3/uL Basophils # (0-0.4) x10^3/uL D-Dimer (0.0-0.50) mg/L Sodium 140 (137-145) mmol/L Potassium 4.0 (3.5-5.1) mmol/L Chloride 107 (98-107) mmol/L Carbon Dioxide 27 (22-30) mmol/L Anion Gap 10.0 (5-15) MEQ/L BUN 25 H (9-20) mg/dL Creatinine 1.18 (0.66-1.25) mg/dL Estimated GFR 64.4 ML/MIN Glucose 99 (74-106) mg/dL Calcium 9.2 (8.4-10.2) mg/dL Total Bilirubin 0.40 (0.2-1.3) mg/dL AST 25 (17-59) U/L ALT 25 (0-50) U/L Alkaline Phosphatase 79 (38-126) U/L Troponin I < 0.012 (0.000-0.034) ng/mL NT-Pro-B Natriuret Pep (<300) pg/mL Serum Total Protein 6.4 (6.3-8.2) g/dL Albumin 3.8 (3.5-5.0) g/dL - Radiology Exams Ordered Rad Exams-Entire Visit: Radiology Procedures Category Date Time Status CHEST 1 VIEW (PORTABLE) Stat Exams 11/01/23 01:01 Completed - Procedures and Test Procedures and Tests throughout Hospitalization: Therapy Orders & Screens 11/01/23 03:43 Smoking Cessation Education ONCE Comment: Diagnosis: Chest pain, acute coronary syndrome, Smoking Status: Current every day smoker How long have you smoked: 60 years Have you smoked in the past 12 months: Yes Approximately how many cigarettes per day: 3/4 PACK Do you dip or chew tobacco: No 11/01/23 06:51 BiPap/CPAP ROUTINE Comment: Diagnosis: Chest pain 11/01/23 08:52 EKG ROUTINE Comment: Diagnosis: Chest pain <ESTELA JIMENEZ - Last Filed: 11/01/23 20:22> Discharge Exam General Appearance: no apparent distress Neurologic Exam: alert, oriented x 3, cooperative Eye Exam: PERRL Ears, Nose, Throat Exam: normal ENT inspection Neck Exam: normal inspection Respiratory Exam: normal breath sounds, lungs clear Cardiovascular Exam: regular rate/rhythm, normal heart sounds Gastrointestinal/Abdomen Exam: soft, normal bowel sounds Male Genitalia Exam: deferred Rectal Exam: deferred Back Exam: normal inspection Extremity Exam: normal inspection Skin Exam: normal color <LUDY MARTINEZ - Last Filed: 11/01/23 11:03> Final Diagnosis/Problem List - Final Discharge Diagnosis/Problem (1) GUILHERME (acute kidney injury) Status: Acute Code(s): N17.9 - ACUTE KIDNEY FAILURE, UNSPECIFIED (2) Smoker Status: Acute Code(s): F17.200 - NICOTINE DEPENDENCE, UNSPECIFIED, UNCOMPLICATED (3) Chest pain Status: Acute Code(s): R07.9 - CHEST PAIN, UNSPECIFIED <LUDY MARTINEZ - Last Filed: 11/01/23 11:03> <LUDY MARTINEZ - Last Filed: 11/01/23 11:03> <ESTELA JIMENEZ - Last Filed: 11/01/23 20:22> - Discharge Disposition: Home, Self-Care Condition: Stable Prescriptions: Continue Gabapentin [Neurontin ] 600 mg PO QID Tamsulosin HCl 0.4 mg [Flomax 0.4 MG] 0.4 mg PO HS [place] 3/Dha/Epa/Vitamin D3 [[place]-3 + Vitamin D3 Softgel] 1 each PO DAILY Multivitamin [Multi-Vitamin Daily] 1 each PO DAILY Celecoxib 100 mg [celeBREX 100 MG] 200 mg PO BID Hydrocodone /APAP 7.5/325 mg [[place] 7.5/325 mg Tab] 1 tab PO Q6HPRN PRN PRN Reason: Pain Simvastatin 20Mg [Zocor 20Mg] 20 mg PO HS Omeprazole 20 MG [Prilosec 20 mg] 20 mg PO DAILY Amlodipine Besylate 5 mg [Norvasc 5 mg] 10 mg PO HS Instructions: Chest Pain (DC) Follow up with: OLGA PICHARDO [CONSULTING PHYSICIAN] - [facility] [Primary Care Provider] - KAREN QUINTANA PA [NON-STAFF PHY W/O PRIVILEGES] - 11/12/23 9:45 am Forms: Discharge Instructions NATHANAEL Encounter - NATHANAEL Encounter Attestation NATHANAEL Encounter Attestation: "NITA Peters andkadyiscussed pertinent aspects of their care with Ludy Martinez and agree with the history, physical exam (any modifications based on my personal exam will be noted below), assessment, and plan as outlined in original note. Please see immediately below for my summary of findings and additional assessment and plan along with any meaningful corrections/explanations to the Subjective/Objective portions of the NATHANAEL note will be noted." My portion of the encounter took place via telemedicine. <ESTELA JIMENEZ - Last Filed: 11/01/23 20:22>
[2023-11-01 05:35] LABS: Absolute Neutrophil Ct (ANC) 6.29 x10^3/uL (1.4-6.9); BASOPHIL % 0.5 % (0.0-0.4); Basophil (Absolute #) 0.05 x10^3/uL (0-0.4); Eosinophil % 3.1 % (0.00-5.0); Hematocrit 41.5 % (42-50); Hemoglobin 13.5 g/dL (12.5-18.0); IMMATURE GRAN # 0.02 x10^3u/L (0.00-0.03); IMMATURE GRAN % 0.2 % (0.00-0.4); Lymphocyte (Absolute #) 2.27 x10^3/uL (1.0-4.6); Lymphocytes % 23.5 % (24.0-44.0); Mean Cell Volume 101.2 fL (78-100); Mean Corpuscular Hemoglobin 32.9 pg (26-32); Mean Corpuscular Hgb Concent. 32.5 g/dL (32-36); Mean Platelet Volume 10.5 fL (7.5-11.0); Monocyte (Absolute #) 0.72 x10^3/uL (0.0-1.3); Monocytes % 7.5 % (0.0-12.0); Neutrophil % 65.2 % (36.0-66.0); Platelet Count 173 x10^3/uL (150-450); Red Cell Distribution Width 12.5 % (11.5-14.0); White Blood Count 9.7 x10^3/uL (4.0-10.5)
[2023-11-01 06:00] LABS: ALBUMIN 3.8 g/dL (3.5-5.0); BILIRUBIN,TOTAL 0.4 mg/dL (0.2-1.3); Calcium 9.2 mg/dL (8.4-10.2); Creatinine 1 1.18 mg/dL (0.66-1.25); EST GLOMERULAR FILTRATION RATE 64.4 ML/MIN; Total Protein 6.4 g/dL (6.3-8.2)
[2023-11-01] MEDS: NORCO 7.5/325 MG TAB PO PRN (08:04)
[2023-11-01] MEDS: celeBREX 100 MG PO SCH (08:07)
[2023-11-01] MEDS: NEURONTIN PO SCH (08:07)
[2023-11-01] MEDS: THERAGRAN MULTIVITAMIN PO SCH (08:07)
[2023-11-01] MEDS: Protonix 40MG Tablet PO SCH (08:08)
[2023-11-01] MEDS: FISH OIL 1,000 MG CAPSULE PO SCH (08:08)
[2023-11-01] MEDS: TYLENOL EXTRA STRENGTH 500 MG PO PRN (08:42)
--- NOTE | 2023-11-01 08:48 | XRAY ---
Indication: Chest pain radiating left arm. Comparison: July 10, 2020 Portable apical lordotic chest inflated and clear again with incidental tiny calcified granulomas. Heart not enlarged. Bony thorax intact again with osteopenia and mild degenerative changes. Impression: Continued nonacute chest with chronic features.
[2023-11-01 11:12] VITALS: BP 155/69; PULSE 54; TEMP 97.1; O2SAT 94
[2023-11-01] MEDS ORDERED: NORVASC 5 MG PO SCH (22:00)
[2023-11-01] MEDS ORDERED: ZOCOR 20MG PO SCH (22:00)
[2023-11-01] MEDS ORDERED: Flomax 0.4 MG PO SCH (22:00)
== END 2023-11-01 11:55 | disposition home or self-care (01) ==
LOC: ED 23:47 → MED SURG 11-01 01:54
PROVIDERS: ADMIT Student in an Organized Health Care Education/Training Program; ATTEND Student in an Organized Health Care Education/Training Program
DX: R07.9 Chest pain, unspecified (principal); N17.9 Acute kidney failure, unspecified; F17.200 Nicotine dependence, unspecified, uncomplicated; I10 Essential (primary) hypertension; E78.5 Hyperlipidemia, unspecified; G47.30 Sleep apnea, unspecified; Z79.899 Other long term (current) drug therapy; Z20.828 Contact with and (suspected) exposure to other viral communicable diseases
CPT/HCPCS: 36000; 36415; 71045; 80053; 83880; 84484; 85025; 85379; 93005; 93041; 94760; 94762; Q3014; 93268; 99285; A9270-GY; G0378

== ENCOUNTER 2023-12-11 10:31 | Observation (INO) | payer OTHER ==
--- NOTE | 2023-12-11 10:52 | ERPHSYRPT ---
- History of Present Illness Time Seen by Provider: 12/11/23 10:40 Source: patient Exam Limitations: no limitations Patient Subjective Stated Complaint: pt had 7 nodules removed from the left lungs on 11/27/2023 and was at the MI yesterday and told him that the upper lung looked good but there was some fluid in the bottom one but nothing was done about it and he has now gotten short of breath Triage Nursing Assessment: Pt brought to the ER by his , , hypertensive, rates chronic back pain as 7/10, pulses normal, skin n/w/d, denies chest pain, lungs clear, doesn't appear to be in any distress Physician History: 73-year-old male presents to our ED with shortness of breath. Patient states that he had 7 lung nodules removed on 11/27/2023. Patient had some residual left- sided pleural effusion. Patient was advised to come to our ED if he developed any shortness of breath or chest pain. Shortness of breath is progressive. Symptoms are mild to moderate in intensity. No active chest pain at this time. No trauma no fever. Patient otherwise feels well. He voices no other complaints or concerns at this time. Procedure was done at [facility] by Dr. Chopra. Significant other at bedside. They voiced no other complaints or concerns at this time. Portions of this note were created with voice recognition technology. There may be grammatical, spelling, punctuation or sound alike errors Timing/Duration: today Severity: moderate Modifying Factors: Improves With: nothing Associated Symptoms: denies symptoms Allergies/Adverse Reactions: terazosin Allergy (Verified 12/11/23 10:47) Home Medications: Amlodipine Besylate 5 mg [Norvasc 5 mg] 10 mg PO HS 02/28/13 [History] Celecoxib 100 mg [celeBREX 100 MG] 200 mg PO BID 02/28/13 [History] Gabapentin [Neurontin ] 600 mg PO QID 02/28/13 [History] Hydrocodone /APAP 7.5/325 mg [Arnold 7.5/325 mg Tab] 1 tab PO Q6HPRN PRN 02/28/13 [History] Multivitamin [Multi-Vitamin Daily] 1 each PO DAILY 02/28/13 [History] [place] 3/Dha/Epa/Vitamin D3 [[place]-3 + Vitamin D3 Softgel] 1 each PO DAILY 02/28/13 [History] Omeprazole 20 MG [Prilosec 20 mg] 20 mg PO DAILY 02/28/13 [History] Simvastatin 20Mg [Zocor 20Mg] 20 mg PO HS 02/28/13 [History] Tamsulosin HCl 0.4 mg [Flomax 0.4 MG] 0.4 mg PO HS 02/28/13 [History] Hx Tetanus, Diphtheria Vaccination/Date Given: Yes Hx Influenza Vaccination/Date Given: Yes Hx Pneumococcal Vaccination/Date Given: Yes Travel Risk - International Travel Have you traveled outside of the country in past 3 weeks: No - Coronavirus Screening Are you exhibiting any of the following symptoms?: No Close contact with a COVID-19 positive Pt in past 14-21 Days: No - Vaccine Status Have you recieved a Covid-19 vaccination: Yes Extension Service Specialist In Charge: Moderna - Vaccination Dates Date of 2cond Vaccination (if applicable): 2020 - Review of Systems Constitutional: No Symptoms, No Fever, No Chills Eyes: No Symptoms Ears, Nose, & Throat: No Symptoms Respiratory: No Symptoms, No Cough, No Dyspnea Cardiac: No Symptoms, No Chest Pain, No Edema, No Syncope Abdominal/Gastrointestinal: No Symptoms, No Abdominal Pain, No Nausea, No Vomiting, No Diarrhea Genitourinary Symptoms: No Symptoms, No Dysuria Musculoskeletal: No Symptoms, No Back Pain, No Neck Pain Skin: No Symptoms, No Rash Neurological: No Symptoms, No Dizziness, No Focal Weakness, No Sensory Changes Psychological: No Symptoms Endocrine: No Symptoms Hematologic/Lymphatic: No Symptoms Immunological/Allergic: No Symptoms All Other Systems: Reviewed and Negative - Past Medical History Pertinent Past Medical History: Yes Neurological History: No Pertinent History ENT History: No Pertinent History Cardiac History: High Cholesterol, Hypertension Respiratory History: No Pertinent History, Other Endocrine Medical History: No Pertinent History Musculoskeletal History: Arthritis GI Medical History: No Pertinent History History: No Pertinent History Psycho-Social History: No Pertinent History Male Reproductive Disorders: Prostate Problems Other Medical History: left hydrocele - Past Surgical History Past Surgical History: Yes Neuro Surgical History: No Pertinent History Cardiac: No Pertinent History Respiratory: No Pertinent History Gastrointestinal: Appendectomy Genitourinary: No Pertinent History Musculoskeletal: Other Male Surgical History: No Pertinent History Other Surgical History: BACK SURGERY, hip replacement (left) - Social History Smoking Status: Current every day smoker How long have you smoked: 60 years Exposure to second hand smoke: Yes Drug Use: none Patient Lives Alone: No - Nursing Vital Signs Nursing Vital Signs: Initial Vital Signs Pulse Rate 73 12/11/23 10:32 Respiratory Rate 19 12/11/23 10:32 Blood Pressure 143/78 12/11/23 10:32 O2 Sat by Pulse Oximetry 98 12/11/23 10:32 Pain Scale Pain Intensity 7 - Physical Exam General Appearance: no apparent distress, alert Eye Exam: PERRL/EOMI, eyes nml inspection Ears, Nose, Throat Exam: normal ENT inspection, TMs normal, pharynx normal, moist mucous membranes Neck Exam: normal inspection, non-tender, supple, full range of motion Respiratory Exam: normal breath sounds, lungs clear, airway intact, No respiratory distress Cardiovascular Exam: regular rate/rhythm, normal heart sounds, normal peripheral pulses Gastrointestinal/Abdomen Exam: soft, normal bowel sounds, No tenderness, No mass Back Exam: normal inspection, normal range of motion, No CVA tenderness, No vertebral tenderness Extremity Exam: normal inspection, normal range of motion, pelvis stable Neurologic Exam: alert, oriented x 3, cooperative, normal mood/affect, nml cerebellar function, nml station & gait, sensation nml, No motor deficits Skin Exam: normal color, warm, dry, No rash Lymphatic Exam: No adenopathy SpO2 Interpretation: normal SpO2: 96 O2 Delivery: Room Air - Course Nursing assessment & vital signs reviewed: Yes EKG Interpreted by Me: RATE ([id number]), Sinus Rhythm, NORMAL AXIS, NORMAL INTERVALS Ordered Tests: Active Orders 24 hr Category Date Time Status Daycare Assistant STAT Care 12/11/23 10:50 Active EKG-ER Only STAT Care 12/11/23 10:49 Active IV Insertion STAT Care 12/11/23 10:49 Active Pulse Oximetry (ED) STAT Care 12/11/23 10:49 Active CHEST WITH CONTRAST [CT] Stat Exams 12/11/23 10:50 Completed BLOOD CULTURE Stat Lab 12/11/23 11:00 Received CBC W DIFF Stat Lab 12/11/23 11:00 Completed CMP Stat Lab 12/11/23 11:00 Completed NT PRO BNPII Stat Lab 12/11/23 11:00 Completed TROPONIN Q4H Lab 12/11/23 11:00 Completed TROPONIN Q4H Lab 12/11/23 14:35 Received TROPONIN Q4H Lab 12/11/23 19:00 Ordered Lab/Rad Data: Laboratory Result Diagrams 12/11/23 11:00 12/11/23 11:00 Laboratory Results 12/11/23 12/11/23 12/11/23 Range/Units 11:00 11:00 11:00 WBC (4.0-10.5) x10^3/uL RBC (4.1-5.6) x10^6/uL Hgb (12.5-18.0) g/dL Hct (42-50) % MCV (78-100) fL MCH (26-32) pg MCHC (32-36) g/dL RDW (11.5-14.0) % Plt Count (150-450) x10^3/uL MPV (7.5-11.0) fL Gran % (36.0-66.0) % Immature Gran % (Auto) (0.00-0.4) % Nucleat RBC Rel Count (0.00-0.1) % Eos # (Auto) (0-0.5) x10^3/uL Immature Gran # (Auto) (0.00-0.03) x10^3u/L Absolute Lymphs (auto) (1.0-4.6) x10^3/uL Absolute Monos (auto) (0.0-1.3) x10^3/uL Absolute Nucleated RBC (0.00-0.01) x10^3u/L Lymphocytes % (24.0-44.0) % Monocytes % (0.0-12.0) % Eosinophils % (0.00-5.0) % Basophils % (0.0-0.4) % Absolute Granulocytes (1.4-6.9) x10^3/uL Basophils # (0-0.4) x10^3/uL Sodium 139 (135-145) mmol/L Potassium 4.6 (3.5-5.1) mmol/L Chloride 101 (98-107) mmol/L Carbon Dioxide 29 (22-30) mmol/L Anion Gap 14.4 (5-15) MEQ/L BUN 27 H (9-20) mg/dL Creatinine 0.92 (0.66-1.25) mg/dL Estimated GFR 86.8 ML/MIN Glucose 105 (74-106) mg/dL Calcium 9.5 (8.4-10.2) mg/dL Total Bilirubin 0.30 (0.2-1.3) mg/dL AST 22 (17-59) U/L ALT 38 (0-50) U/L Alkaline Phosphatase 111 (38-126) U/L Troponin I < 0.012 (0.000-0.034) ng/mL NT-Pro-B Natriuret Pep 65.2 (<300) pg/mL Serum Total Protein 7.4 (6.3-8.2) g/dL Albumin 3.9 (3.5-5.0) g/dL 12/11/23 Range/Units 11:00 WBC 14.9 H (4.0-10.5) x10^3/uL RBC 3.81 L (4.1-5.6) x10^6/uL Hgb 12.2 L (12.5-18.0) g/dL Hct 37.9 L (42-50) % MCV 99.5 (78-100) fL MCH 32.0 (26-32) pg MCHC 32.2 (32-36) g/dL RDW 12.7 (11.5-14.0) % Plt Count 490 H (150-450) x10^3/uL MPV 9.0 (7.5-11.0) fL Gran % 80.9 H (36.0-66.0) % Immature Gran % (Auto) 0.5 H (0.00-0.4) % Nucleat RBC Rel Count 0.0 (0.00-0.1) % Eos # (Auto) 0.25 (0-0.5) x10^3/uL Immature Gran # (Auto) 0.08 H (0.00-0.03) x10^3u/L Absolute Lymphs (auto) 1.80 (1.0-4.6) x10^3/uL Absolute Monos (auto) 0.64 (0.0-1.3) x10^3/uL Absolute Nucleated RBC 0.00 (0.00-0.01) x10^3u/L Lymphocytes % 12.1 L (24.0-44.0) % Monocytes % 4.3 (0.0-12.0) % Eosinophils % 1.7 (0.00-5.0) % Basophils % 0.5 (0.0-0.4) % Absolute Granulocytes 12.02 H (1.4-6.9) x10^3/uL Basophils # 0.07 (0-0.4) x10^3/uL Sodium (135-145) mmol/L Potassium (3.5-5.1) mmol/L Chloride (98-107) mmol/L Carbon Dioxide (22-30) mmol/L Anion Gap (5-15) MEQ/L BUN (9-20) mg/dL Creatinine (0.66-1.25) mg/dL Estimated GFR ML/MIN Glucose (74-106) mg/dL Calcium (8.4-10.2) mg/dL Total Bilirubin (0.2-1.3) mg/dL AST (17-59) U/L ALT (0-50) U/L Alkaline Phosphatase (38-126) U/L Troponin I (0.000-0.034) ng/mL NT-Pro-B Natriuret Pep (<300) pg/mL Serum Total Protein (6.3-8.2) g/dL Albumin (3.5-5.0) g/dL - Progress Progress: improved Progress Note: Management discussed with patient's surgeon Dr. Chopra who feels patient would be appropriate for admission for bronchodilating therapy and chest physical therapy. Patient's wood last maker is Dr. Cyndy franz who should be consulted during his hospitalization as well. Management discussed with patient. He agrees to admission to [facility] for further evaluation and treatment. I communicated with Dr. Chopra at 1:48 PM 12/11/23 14:[address] Nelson franz at 2:46 PM who is willing to take consultation upon admission to [facility] Case discussed with Dr. Greenwood who accepts admission to observation at 2:10 PM. Plan of care discussed with patient. He agrees to admission to [facility] for further evaluation and treatment. Complexity of problem addressed is moderate acute complicated No critical care time Complexity of data reviewed and analyzed is extensive. Test ordered test reviewed. Results analyzed and correlated clinically with history and physical examination. I discussed management with Dr. Chopra patient's cardiothoracic surgeon, Dr. Reece patient's wood last maker and hospitalist who accepts ad mission to observation. Risk of complication and or risk of morbidity/mortality of patient management is high. Patient requires hospitalization for further evaluation and treatment. Vital stable. Time spent admit patient is approximately 30 minutes. Plan of care established for shared decision making. No social determinants of health present impede follow-up. Portions of this note were created with voice recognition technology. There may be grammatical, spelling, punctuation or sound alike errors 12/11/23 14:47 12/11/23 14:[address] Other Will see patient in: hospital (observation) Counseled pt/family regarding: lab results, diagnosis, rad results - Departure Departure Disposition: Observation Clinical Impression: Shortness of breath, Pneumothorax, Leukocytosis Condition: Stable Critical Care Time: No Referrals: HOSPITAL,'S [Primary Care Provider] - Follow up/PCP as directed
[2023-12-11 11:19] LABS: Absolute Neutrophil Ct (ANC) 12.02 x10^3/uL (1.4-6.9); BASOPHIL % 0.5 % (0.0-0.4); Basophil (Absolute #) 0.07 x10^3/uL (0-0.4); Eosinophil % 1.7 % (0.00-5.0); Eosinophil (Absolute #) 0.25 x10^3/uL (0-0.5); Hematocrit 37.9 % (42-50); Hemoglobin 12.2 g/dL (12.5-18.0); IMMATURE GRAN # 0.08 x10^3u/L (0.00-0.03); IMMATURE GRAN % 0.5 % (0.00-0.4); Lymphocytes % 12.1 % (24.0-44.0); Mean Cell Volume 99.5 fL (78-100); Mean Corpuscular Hgb Concent. 32.2 g/dL (32-36); Monocyte (Absolute #) 0.64 x10^3/uL (0.0-1.3); Monocytes % 4.3 % (0.0-12.0); Neutrophil % 80.9 % (36.0-66.0); Platelet Count 490 x10^3/uL (150-450); Red Blood Count 3.81 x10^6/uL (4.1-5.6); Red Cell Distribution Width 12.7 % (11.5-14.0); White Blood Count 14.9 x10^3/uL (4.0-10.5)
[2023-12-11 11:37] LABS: ALBUMIN 3.9 g/dL (3.5-5.0); ANION GAP 14.4 MEQ/L (5-15); BILIRUBIN,TOTAL 0.3 mg/dL (0.2-1.3); Calcium 9.5 mg/dL (8.4-10.2); Creatinine 1 0.92 mg/dL (0.66-1.25); EST GLOMERULAR FILTRATION RATE 86.8 ML/MIN; Potassium 4.6 mmol/L (3.5-5.1); Total Protein 7.4 g/dL (6.3-8.2)
--- NOTE | 2023-12-11 13:01 | XRAY ---
Indication: Short of breath. Status post left lung surgery/biopsy November 27, 2023. Multiple contiguous axial images obtained through the chest using 80 cc Isovue 370 contrast and PE protocol. Comparison: February 28, 2013 Good opacification of the pulmonary arteries to include the lobar and segmental branches. No pulmonary embolus. Heart is not enlarged. Aorta again mildly larger sclerotic without aneurysm/dissection. Tiny bilateral hilar calcified nodes. No pathologic mediastinal/hilar lymphadenopathy. Lungs demonstrates new approximately 25% pneumothorax with partial left upper lobe atelectasis and small effusion. Right lung again demonstrates minimal peripheral fibrosis/scoring. Bony thorax intact again with progressive worsening mild/moderate degenerative changes throughout the spine. Limited upper abdomen including adrenal glands are unremarkable. Impression: 1. Negative pulmonary embolus. 2. New left pneumothorax with small effusion and partial left upper lobe atelectasis as detailed.
--- NOTE | 2023-12-11 16:18 | PCM.HP ---
<LUDY MARTINEZ - Last Filed: 12/11/23 16:37> History of Present Illness - Chief Complaint Chief Complaint: SOB, PNEUMOTHORAX Date: 12/11/23 History of Present Illness: is a 73 year old male with a pmhx of HLD, HTN, arthritis, and recent left lung surgery/biopsy performed 11/27/[address] Chopra - 25% pneumothorax with partial left upper lobe atelectasis and small effusion who presented to ED 12/11/23 with complaints of shortness of breath. Patient states that he has been doing well following surgery until yesterday when he began to experience progressive shortness of breath. He does endorse a non-productive cough and chronic sinus congestion. Denies fevers,cp, abdominal pain, GEE, dizziness, N/V/D. In ED,vitals are unremarkable with spo2 at 96% on RA. CT chest negative for PE. The CT did show approximately 25% pneumothorax with partial left upper lobe atelectasis and small effusion which his cardiothoracic surgeon Dr. Chopra states is not new. Lab findings demonstrate leukocytosis with WBC at 14.9. Patient admitted for bronchodilating and chest therapy. Dr. Lima consulted in the ED, he will follow patient. Of note, patient has not received biopsy results, planned appt with [facility] on 12/20/23 to discuss pathology results and return to Dr. Chopra on 12/24/23. - Review of Systems Constitutional: Night Sweats (chronic) Eyes: No Symptoms Ears, Nose, & Throat: Sinus Drainage Respiratory: Cough, Short Of Breath Cardiac: No Symptoms Abdominal/Gastrointestinal: No Symptoms Genitourinary Symptoms: No Symptoms Musculoskeletal: No Symptoms Skin: No Symptoms Neurological: No Symptoms Psychological: No Symptoms Endocrine: No Symptoms Hematologic/Lymphatic: No Symptoms Immunological/Allergic: No Symptoms Medications & Allergies Home Medications: Home Medication List Amlodipine Besylate 5 mg [Norvasc 5 mg] 10 mg PO HS 02/28/13 [History Confirmed 12/11/23] Celecoxib 100 mg [celeBREX 100 MG] 200 mg PO BID 02/28/13 [History Confirmed 12/11/23] Gabapentin [Neurontin ] 600 mg PO UD 02/28/13 [History Confirmed 12/11/23] Hydrocodone /APAP 7.5/325 mg [[place] 7.5/325 mg Tab] 1 tab PO Q6HPRN PRN 02/28/13 [History Confirmed 12/11/23] Multivitamin [Multi-Vitamin Daily] 1 each PO DAILY 02/28/13 [History Confirmed 12/11/23] [place] 3/Dha/Epa/Vitamin D3 [[place]-3 + Vitamin D3 Softgel] 1 each PO DAILY 02/28/13 [History Confirmed 12/11/23] Omeprazole 20 MG [Prilosec 20 mg] 20 mg PO DAILY 02/28/13 [History Confirmed 12/11/23] Simvastatin 20Mg [Zocor 20Mg] 20 mg PO HS 02/28/13 [History Confirmed 12/11/23] Tamsulosin HCl 0.4 mg [Flomax 0.4 MG] 0.4 mg PO HS 02/28/13 [History Confirmed 12/11/23] Lisinopril/Hydrochlorothiazide [Lisinopril-Hctz 10-12.5 mg Tab] 1 tab PO DAILY 12/11/23 [History Confirmed 12/11/23] Allergies/Adverse Reactions: Allergies Allergy/AdvReac Type Severity Reaction Status Date / Time terazosin Allergy Verified 12/11/23 10:47 - Past Medical History Past Medical History: Yes Neurological History: No Pertinent History ENT History: No Pertinent History Cardiac History: High Cholesterol, Hypertension Respiratory History: No Pertinent History, Sleep Apnea Endocrine Medical History: No Pertinent History Musculoskelatal History: Arthritis GI Medical History: No Pertinent History History: No Pertinent History Pyscho-Social History: No Pertinent History Male Reproductive Disorders: Prostate Problems Comment: left hydrocele - Past Surgical History Past Surgical History: Yes Neuro Surgical History: No Pertinent History Cardiac History: No Pertinent History Respiratory Surgery: No Pertinent History GI Surgical History: Appendectomy Genitourinary Surgical Hx: No Pertinent History Musculskeletal Surgical Hx: Other Male Surgical History: No Pertinent History Other Surgical History: BACK SURGERY, hip replacement (left), LUNG NODULES REMOVED FROM LEFT LUNG ON 11/27/23 - Social History Smoking Status: Current every day smoker How long have you smoked: 61 YEARS Exposure to second hand smoke: No Alcohol: None Drug Use: none - Social Determinants of Health Will the patient participate in the screening: Yes Do you worry about a steady place to live?: No Do you have any problems with any of the following?: No known problems In the past 12 months,have you had to go without utilities?: No Have you or anyone in your house had to go without enough: No Transportation Issues: No Has anyone in your support network made you feel unsafe?: No Does the patient want assistance with any of the above?: No - Physical Exam Vital Signs: Vital Signs - 24 hr Temp Pulse Resp BP BP Pulse Ox 12/11/23 15:59 94 L 12/11/23 15:27 98.1 F 64 16 172/81 94 L 12/11/23 15:12 98.1 F 64 16 172/81 94 L 12/11/23 15:00 98.1 F 64 16 172/81 94 L 12/11/23 14:53 96 12/11/23 13:00 145 H 145/71 95 12/11/23 12:50 95 12/11/23 12:40 97 12/11/23 12:37 98 12/11/23 12:04 128/64 12/11/23 11:30 122/70 12/11/23 11:11 96 12/11/23 11:00 64 17 127/70 95 12/11/23 10:32 73 14 143/78 96 General Appearance: no apparent distress Neurologic Exam: alert, oriented x 3, cooperative Eye Exam: PERRL/EOMI Ears, Nose, Throat Exam: normal ENT inspection Neck Exam: normal inspection Respiratory Exam: diminished breath sounds Cardiovascular Exam: regular rate/rhythm, normal heart sounds Gastrointestinal/Abdomen Exam: soft Rectal Exam: deferred Extremity Exam: normal inspection Skin Exam: normal color Results - Labs Lab/Micro Results: Lab Results-Last 24 Hours 12/11/23 12/11/23 12/11/23 Range/Units 11:00 11:00 11:00 WBC 14.9 H (4.0-10.5) x10^3/uL RBC 3.81 L (4.1-5.6) x10^6/uL Hgb 12.2 L (12.5-18.0) g/dL Hct 37.9 L (42-50) % MCV 99.5 (78-100) fL MCH 32.0 (26-32) pg MCHC 32.2 (32-36) g/dL RDW 12.7 (11.5-14.0) % Plt Count 490 H (150-450) x10^3/uL MPV 9.0 (7.5-11.0) fL Gran % 80.9 H (36.0-66.0) % Immature Gran % (Auto) 0.5 H (0.00-0.4) % Nucleat RBC Rel Count 0.0 (0.00-0.1) % Eos # (Auto) 0.25 (0-0.5) x10^3/uL Immature Gran # (Auto) 0.08 H (0.00-0.03) x10^3u/L Absolute Lymphs (auto) 1.80 (1.0-4.6) x10^3/uL Absolute Monos (auto) 0.64 (0.0-1.3) x10^3/uL Absolute Nucleated RBC 0.00 (0.00-0.01) x10^3u/L Lymphocytes % 12.1 L (24.0-44.0) % Monocytes % 4.3 (0.0-12.0) % Eosinophils % 1.7 (0.00-5.0) % Basophils % 0.5 (0.0-0.4) % Absolute Granulocytes 12.02 H (1.4-6.9) x10^3/uL Basophils # 0.07 (0-0.4) x10^3/uL Sodium 139 (135-145) mmol/L Potassium 4.6 (3.5-5.1) mmol/L Chloride 101 (98-107) mmol/L Carbon Dioxide 29 (22-30) mmol/L Anion Gap 14.4 (5-15) MEQ/L BUN 27 H (9-20) mg/dL Creatinine 0.92 (0.66-1.25) mg/dL Estimated GFR 86.8 ML/MIN Glucose 105 (74-106) mg/dL Calcium 9.5 (8.4-10.2) mg/dL Total Bilirubin 0.30 (0.2-1.3) mg/dL AST 22 (17-59) U/L ALT 38 (0-50) U/L Alkaline Phosphatase 111 (38-126) U/L Troponin I < 0.012 (0.000-0.034) ng/mL NT-Pro-B Natriuret Pep (<300) pg/mL Serum Total Protein 7.4 (6.3-8.2) g/dL Albumin 3.9 (3.5-5.0) g/dL 12/11/23 12/11/23 Range/Units 11:00 14:35 WBC (4.0-10.5) x10^3/uL RBC (4.1-5.6) x10^6/uL Hgb (12.5-18.0) g/dL Hct (42-50) % MCV (78-100) fL MCH (26-32) pg MCHC (32-36) g/dL RDW (11.5-14.0) % Plt Count (150-450) x10^3/uL MPV (7.5-11.0) fL Gran % (36.0-66.0) % Immature Gran % (Auto) (0.00-0.4) % Nucleat RBC Rel Count (0.00-0.1) % Eos # (Auto) (0-0.5) x10^3/uL Immature Gran # (Auto) (0.00-0.03) x10^3u/L Absolute Lymphs (auto) (1.0-4.6) x10^3/uL Absolute Monos (auto) (0.0-1.3) x10^3/uL Absolute Nucleated RBC (0.00-0.01) x10^3u/L Lymphocytes % (24.0-44.0) % Monocytes % (0.0-12.0) % Eosinophils % (0.00-5.0) % Basophils % (0.0-0.4) % Absolute Granulocytes (1.4-6.9) x10^3/uL Basophils # (0-0.4) x10^3/uL Sodium (135-145) mmol/L Potassium (3.5-5.1) mmol/L Chloride (98-107) mmol/L Carbon Dioxide (22-30) mmol/L Anion Gap (5-15) MEQ/L BUN (9-20) mg/dL Creatinine (0.66-1.25) mg/dL Estimated GFR ML/MIN Glucose (74-106) mg/dL Calcium (8.4-10.2) mg/dL Total Bilirubin (0.2-1.3) mg/dL AST (17-59) U/L ALT (0-50) U/L Alkaline Phosphatase (38-126) U/L Troponin I < 0.012 (0.000-0.034) ng/mL NT-Pro-B Natriuret Pep 65.2 (<300) pg/mL Serum Total Protein (6.3-8.2) g/dL Albumin (3.5-5.0) g/dL - Radiology Impressions Radiology Exams & Impressions: Radiology Procedures Category Date Time Status CHEST WITH CONTRAST [CT] Stat Exams 12/11/23 10:50 Completed Assessment/Plan (1) Leukocytosis Current Visit: Yes Status: Acute Assessment & Plan: -may be reactive -will order UA, procal -no consolidation or infiltrates on CT -Trend CBC Code(s): D72.829 - ELEVATED WHITE BLOOD CELL COUNT, UNSPECIFIED (2) Pneumothorax Current Visit: Yes Status: Acute Assessment & Plan: -CT showing 25% pneumothorax with partial left upper lobe atelectasis and small effusion. Right lung again demonstrates minimal peripheral fibrosis/scoring. -Recent surgery 11/27/23, per Dr. Chopra pneumothorax is known -RT eval/[place] consulted in ED, appreciate recs Code(s): J93.9 - PNEUMOTHORAX, UNSPECIFIED (3) Shortness of breath Current Visit: Yes Status: Acute Assessment & Plan: -RT eval -Supplemental oxygen as needed to maintain >92% -Pt on RA at baseline and during interview -Nebs/Inh prn Code(s): R06.02 - SHORTNESS OF BREATH <ESTELA JIMENEZ - Last Filed: 12/11/23 22:43> History of Present Illness - Chief Complaint History of Present Illness: is a 73 year old male. - Physical Exam Vital Signs: Vital Signs - 24 hr Temp Pulse Resp BP BP Pulse Ox 12/11/23 19:46 98.2 F 63 18 122/60 95 12/11/23 19:17 67 16 96 12/11/23 17:20 67 16 96 12/11/23 15:59 94 L 12/11/23 15:27 98.1 F 64 16 172/81 94 L 12/11/23 15:12 98.1 F 64 16 172/81 94 L 12/11/23 15:00 98.1 F 64 16 172/81 94 L 12/11/23 14:53 96 12/11/23 13:00 145 H 145/71 95 12/11/23 12:50 95 12/11/23 12:40 97 12/11/23 12:37 98 12/11/23 12:04 128/64 12/11/23 11:30 122/70 12/11/23 11:11 96 12/11/23 11:00 64 17 127/70 95 12/11/23 10:32 73 14 143/78 96 Results - Labs Lab/Micro Results: Lab Results-Last 24 Hours 12/11/23 12/11/23 12/11/23 Range/Units 11:00 11:00 11:00 WBC 14.9 H (4.0-10.5) x10^3/uL RBC 3.81 L (4.1-5.6) x10^6/uL Hgb 12.2 L (12.5-18.0) g/dL Hct 37.9 L (42-50) % MCV 99.5 (78-100) fL MCH 32.0 (26-32) pg MCHC 32.2 (32-36) g/dL RDW 12.7 (11.5-14.0) % Plt Count 490 H (150-450) x10^3/uL MPV 9.0 (7.5-11.0) fL Gran % 80.9 H (36.0-66.0) % Immature Gran % (Auto) 0.5 H (0.00-0.4) % Nucleat RBC Rel Count 0.0 (0.00-0.1) % Eos # (Auto) 0.25 (0-0.5) x10^3/uL Immature Gran # (Auto) 0.08 H (0.00-0.03) x10^3u/L Absolute Lymphs (auto) 1.80 (1.0-4.6) x10^3/uL Absolute Monos (auto) 0.64 (0.0-1.3) x10^3/uL Absolute Nucleated RBC 0.00 (0.00-0.01) x10^3u/L Lymphocytes % 12.1 L (24.0-44.0) % Monocytes % 4.3 (0.0-12.0) % Eosinophils % 1.7 (0.00-5.0) % Basophils % 0.5 (0.0-0.4) % Absolute Granulocytes 12.02 H (1.4-6.9) x10^3/uL Basophils # 0.07 (0-0.4) x10^3/uL Sodium 139 (135-145) mmol/L Potassium 4.6 (3.5-5.1) mmol/L Chloride 101 (98-107) mmol/L Carbon Dioxide 29 (22-30) mmol/L Anion Gap 14.4 (5-15) MEQ/L BUN 27 H (9-20) mg/dL Creatinine 0.92 (0.66-1.25) mg/dL Estimated GFR 86.8 ML/MIN Glucose 105 (74-106) mg/dL Calcium 9.5 (8.4-10.2) mg/dL Total Bilirubin 0.30 (0.2-1.3) mg/dL AST 22 (17-59) U/L ALT 38 (0-50) U/L Alkaline Phosphatase 111 (38-126) U/L Troponin I < 0.012 (0.000-0.034) ng/mL NT-Pro-B Natriuret Pep (<300) pg/mL Serum Total Protein 7.4 (6.3-8.2) g/dL Albumin 3.9 (3.5-5.0) g/dL Procalcitonin (0.030-0.080) ng/mL Urine Color (Yellow) Urine Appearance (Clear) Urine pH (4.6-8.0) Ur Specific [place] (1.005-1.030) Urine Protein (Negative) Urine Glucose (UA) (Negative) mg/dL Urine Ketones (Negative) Urine Blood (Negative) Urine Nitrite (Negative) Urine Bilirubin (Negative) Urine Urobilinogen (0.2) mg/dL Ur Leukocyte Esterase (Negative) U Hyaline Cast (Auto) (0-2) /LPF Urine Microscopic RBC (0-5) /HPF Urine Microscopic WBC (0-5) /HPF Ur Epithelial Cells (None Seen) /HPF Urine Bacteria (None Seen) /HPF Urine Culture Reflexed (NO) 12/11/23 12/11/23 12/11/23 Range/Units 11:00 14:35 17:00 WBC (4.0-10.5) x10^3/uL RBC (4.1-5.6) x10^6/uL Hgb (12.5-18.0) g/dL Hct (42-50) % MCV (78-100) fL MCH (26-32) pg MCHC (32-36) g/dL RDW (11.5-14.0) % Plt Count (150-450) x10^3/uL MPV (7.5-11.0) fL Gran % (36.0-66.0) % Immature Gran % (Auto) (0.00-0.4) % Nucleat RBC Rel Count (0.00-0.1) % Eos # (Auto) (0-0.5) x10^3/uL Immature Gran # (Auto) (0.00-0.03) x10^3u/L Absolute Lymphs (auto) (1.0-4.6) x10^3/uL Absolute Monos (auto) (0.0-1.3) x10^3/uL Absolute Nucleated RBC (0.00-0.01) x10^3u/L Lymphocytes % (24.0-44.0) % Monocytes % (0.0-12.0) % Eosinophils % (0.00-5.0) % Basophils % (0.0-0.4) % Absolute Granulocytes (1.4-6.9) x10^3/uL Basophils # (0-0.4) x10^3/uL Sodium (135-145) mmol/L Potassium (3.5-5.1) mmol/L Chloride (98-107) mmol/L Carbon Dioxide (22-30) mmol/L Anion Gap (5-15) MEQ/L BUN (9-20) mg/dL Creatinine (0.66-1.25) mg/dL Estimated GFR ML/MIN Glucose (74-106) mg/dL Calcium (8.4-10.2) mg/dL Total Bilirubin (0.2-1.3) mg/dL AST (17-59) U/L ALT (0-50) U/L Alkaline Phosphatase (38-126) U/L Troponin I < 0.012 (0.000-0.034) ng/mL NT-Pro-B Natriuret Pep 65.2 (<300) pg/mL Serum Total Protein (6.3-8.2) g/dL Albumin (3.5-5.0) g/dL Procalcitonin (0.030-0.080) ng/mL Urine Color Yellow (Yellow) Urine Appearance Clear (Clear) Urine pH 7.5 (4.6-8.0) Ur Specific [place] >=1.030 A (1.005-1.030) Urine Protein Negative (Negative) Urine Glucose (UA) Negative (Negative) mg/dL Urine Ketones Negative (Negative) Urine Blood Negative (Negative) Urine Nitrite Negative (Negative) Urine Bilirubin Negative (Negative) Urine Urobilinogen 0.2 (0.2) mg/dL Ur Leukocyte Esterase Negative (Negative) U Hyaline Cast (Auto) NONE SEEN (0-2) /LPF Urine Microscopic RBC 0-2 (0-5) /HPF Urine Microscopic WBC 0-2 (0-5) /HPF Ur Epithelial Cells None Seen (None Seen) /HPF Urine Bacteria None Seen (None Seen) /HPF Urine Culture Reflexed NO (NO) 12/11/23 12/11/23 Range/Units 18:28 18:28 WBC (4.0-10.5) x10^3/uL RBC (4.1-5.6) x10^6/uL Hgb (12.5-18.0) g/dL Hct (42-50) % MCV (78-100) fL MCH (26-32) pg MCHC (32-36) g/dL RDW (11.5-14.0) % Plt Count (150-450) x10^3/uL MPV (7.5-11.0) fL Gran % (36.0-66.0) % Immature Gran % (Auto) (0.00-0.4) % Nucleat RBC Rel Count (0.00-0.1) % Eos # (Auto) (0-0.5) x10^3/uL Immature Gran # (Auto) (0.00-0.03) x10^3u/L Absolute Lymphs (auto) (1.0-4.6) x10^3/uL Absolute Monos (auto) (0.0-1.3) x10^3/uL Absolute Nucleated RBC (0.00-0.01) x10^3u/L Lymphocytes % (24.0-44.0) % Monocytes % (0.0-12.0) % Eosinophils % (0.00-5.0) % Basophils % (0.0-0.4) % Absolute Granulocytes (1.4-6.9) x10^3/uL Basophils # (0-0.4) x10^3/uL Sodium (135-145) mmol/L Potassium (3.5-5.1) mmol/L Chloride (98-107) mmol/L Carbon Dioxide (22-30) mmol/L Anion Gap (5-15) MEQ/L BUN (9-20) mg/dL Creatinine (0.66-1.25) mg/dL Estimated GFR ML/MIN Glucose (74-106) mg/dL Calcium (8.4-10.2) mg/dL Total Bilirubin (0.2-1.3) mg/dL AST (17-59) U/L ALT (0-50) U/L Alkaline Phosphatase (38-126) U/L Troponin I < 0.012 (0.000-0.034) ng/mL NT-Pro-B Natriuret Pep (<300) pg/mL Serum Total Protein (6.3-8.2) g/dL Albumin (3.5-5.0) g/dL Procalcitonin 0.055 (0.030-0.080) ng/mL Urine Color (Yellow) Urine Appearance (Clear) Urine pH (4.6-8.0) Ur Specific [place] (1.005-1.030) Urine Protein (Negative) Urine Glucose (UA) (Negative) mg/dL Urine Ketones (Negative) Urine Blood (Negative) Urine Nitrite (Negative) Urine Bilirubin (Negative) Urine Urobilinogen (0.2) mg/dL Ur Leukocyte Esterase (Negative) U Hyaline Cast (Auto) (0-2) /LPF Urine Microscopic RBC (0-5) /HPF Urine Microscopic WBC (0-5) /HPF Ur Epithelial Cells (None Seen) /HPF Urine Bacteria (None Seen) /HPF Urine Culture Reflexed (NO) - Radiology Impressions Radiology Exams & Impressions: Radiology Procedures Category Date Time Status CHEST WITH CONTRAST [CT] Stat Exams 12/11/23 10:50 Completed - Other Procedures and Tests Respiratory Therapy 12/11/23 17:20 Respiratory Therapy Assessment DAILY 12/11/23 21:00 BiPap/CPAP ROUTINE NATHANAEL Encounter - NATHANAEL Encounter Attestation NATHAANEL Encounter Attestation: "NITA Peters andkadyiscussed pertinent aspects of their care with [ ]and agree with the history, physical exam (any modifications based on my personal exam will be noted below), assessment, and plan as outlined in original note. Please see immediately below for my summary of findings and additional assessment and plan along with any meaningful corrections/explanations to the Subjective/Objective portions of the NATHANAEL note will be noted." My portion of the encounter took place via telemedicine. -s/p recent lobectomy with 25% pneumothorax which was present at discharge from the hospital per his CT surgeon. Patient reports dyspnea but is not hypoxic. No PE seen on CT with contrast. Await further pulm input.
[2023-12-11 17:20] LABS: Appearance Clear (Clear); Bacteria None Seen /HPF (None Seen); Bilirubin Negative (Negative); Blood Negative (Negative); Epithelial Cells None Seen /HPF (None Seen); Glucose, Urine Negative (Negative); Hyaline Casts NONE SEEN /LPF (0-2); Ketones Negative (Negative); Leukocyte Esterase Negative (Negative); Nitrite Negative (Negative); Ph 7.5 (4.6-8.0); Protein,Urine Dip Negative (Negative); RBC 0-2 /HPF (0-5); Specific Gravity >=1.030 (1.005-1.030); Urobilinogen 0.2 mg/dL (0.2); WBC 0-2 /HPF (0-5)
[2023-12-11 17:25] LABS: ADD URINE CULTURE? NO (NO)
[2023-12-11] MEDS: DUONEB 0.5-3 MG/3 ml Neb IH SCH (19:05)
[2023-12-11] MEDS: Flomax 0.4 MG PO SCH (21:55)
[2023-12-11] MEDS: NORCO 7.5/325 MG TAB PO PRN (21:55)
[2023-12-11] MEDS: NORVASC 5 MG PO SCH (21:55)
[2023-12-11] MEDS: ZOCOR 20MG PO SCH (21:55)
[2023-12-11] MEDS: celeBREX 100 MG PO SCH (21:56)
[2023-12-11] MEDS: NEURONTIN PO SCH (21:56)
[2023-12-12 04:51] LABS: Absolute Neutrophil Ct (ANC) 8.54 x10^3/uL (1.4-6.9); BASOPHIL % 0.5 % (0.0-0.4); Basophil (Absolute #) 0.06 x10^3/uL (0-0.4); Eosinophil % 4.4 % (0.00-5.0); Eosinophil (Absolute #) 0.54 x10^3/uL (0-0.5); Hematocrit 35.6 % (42-50); Hemoglobin 11.4 g/dL (12.5-18.0); IMMATURE GRAN # 0.08 x10^3u/L (0.00-0.03); IMMATURE GRAN % 0.7 % (0.00-0.4); Lymphocyte (Absolute #) 2.18 x10^3/uL (1.0-4.6); Lymphocytes % 17.9 % (24.0-44.0); Mean Cell Volume 99.7 fL (78-100); Mean Corpuscular Hemoglobin 31.9 pg (26-32); Mean Platelet Volume 9.2 fL (7.5-11.0); Monocyte (Absolute #) 0.81 x10^3/uL (0.0-1.3); Monocytes % 6.6 % (0.0-12.0); Neutrophil % 69.9 % (36.0-66.0); Platelet Count 444 x10^3/uL (150-450); Red Blood Count 3.57 x10^6/uL (4.1-5.6); Red Cell Distribution Width 12.8 % (11.5-14.0); White Blood Count 12.2 x10^3/uL (4.0-10.5)
[2023-12-12 05:16] LABS: ALBUMIN 3.3 g/dL (3.5-5.0); ANION GAP 10.2 MEQ/L (5-15); BILIRUBIN,TOTAL 0.1 mg/dL (0.2-1.3); Creatinine 1 1.09 mg/dL (0.66-1.25); EST GLOMERULAR FILTRATION RATE 70.8 ML/MIN; Potassium 4.4 mmol/L (3.5-5.1); Total Protein 6.2 g/dL (6.3-8.2)
[2023-12-12 06:41] VITALS: RESP 16; O2SAT 96
--- NOTE | 2023-12-12 08:54 | PCM.DS ---
Discharge Summary Date of Admission: 12/11/23 14:58 Date of Discharge: 12/12/23 Admitting Physician: ESTELA JIMENEZ MD Consults: Consults on Case 12/11/23 15:00 Consult Pulmonology ROUTINE Primary Care Provider: [facility] Allergies Allergies terazosin Allergy (Verified 12/11/23 10:47) Hospital Summary - Hospital Course Hospital Course: is a 73 year old male with a pmhx of HLD, HTN, arthritis, and recent left lung surgery/biopsy performed 11/27/[address] Chopra - 25% pneumothorax with partial left upper lobe atelectasis and small effusion who presented to ED 12/11/23 with complaints of shortness of breath. Patient states that he has been doing well following surgery until yesterday when he began to experience progressive shortness of breath. He does endorse a non-productive cough and chronic sinus congestion. Denies fevers,cp, abdominal pain, GEE, dizziness, N/V/D. In ED,vitals are unremarkable with spo2 at 96% on RA. CT chest negative for PE. The CT did show approximately 25% pneumothorax with partial left upper lobe atelectasis and small effusion which his cardiothoracic surgeon Dr. Chopra states is not new. Lab findings demonstrate leukocytosis with WBC at 14.9. Patient admitted for bronchodilating and chest therapy. Dyspnea has improved, patient on RA. He has an appt with Dr. Reece today at 1pm and is requesting discharge. Of note, patient has not received biopsy results, planned appt with [facility] on 12/20/23 to discuss pathology results and return to Dr. Chopra on 12/24/23. Patient has home nebulizer and requesting DuoNeb refill. Discharge Note Latest Assessment & Plan (1) Leukocytosis Current Visit: Yes Status: Acute Assessment & Plan: -may be reactive -will order UA, procal -no consolidation or infiltrates on CT -Trend CBC Code(s): D72.829 - ELEVATED WHITE BLOOD CELL COUNT, UNSPECIFIED (2) Pneumothorax Current Visit: Yes Status: Acute Assessment & Plan: -CT showing 25% pneumothorax with partial left upper lobe atelectasis and small effusion. Right lung again demonstrates minimal peripheral fibrosis/scoring. -Recent surgery 11/27/23, per Dr. Chopra pneumothorax is known -RT eval/Desphande consulted in ED, appreciate recs Code(s): J93.9 - PNEUMOTHORAX, UNSPECIFIED (3) Shortness of breath Current Visit: Yes Status: Acute Assessment & Plan: -RT eval -Supplemental oxygen as needed to maintain >92% -Pt on RA at baseline and during interview -Nebs/Inh prn Code(s): R06.02 - SHORTNESS OF BREATH I spent 35 minutes [id number] with the patient on the day of discharge performing discharge exam, discussing hospital stay and discharge instructions with patient and caregivers, preparation of discharge records, prescriptions & referral forms and addressing any questions/concerns the patient had as documented above. - Vitals & Intake/Output Vital Signs: Vital Signs Temperature 96.2 F 12/12/23 06:40 Pulse Rate 72 12/12/23 06:42 Respiratory Rate 16 12/12/23 06:42 Blood Pressure 113/54 12/12/23 06:40 O2 Sat by Pulse Oximetry 96 12/12/23 06:42 Intake & Output: Intake & Output 12/09/23 12/10/23 12/11/23 12/12/23 11:59 11:59 11:59 11:59 Intake Total 1060 Output Total 200 Balance 860 Weight 72.575 kg 69.6 kg - Lab Result Diagrams: 12/12/23 04:20 12/12/23 04:20 Lab Results-Last 24 Hrs: Lab Results-Last 24 Hours 12/11/23 12/11/23 12/11/23 Range/Units 11:00 11:00 11:00 WBC 14.9 H (4.0-10.5) x10^3/uL RBC 3.81 L (4.1-5.6) x10^6/uL Hgb 12.2 L (12.5-18.0) g/dL Hct 37.9 L (42-50) % MCV 99.5 (78-100) fL MCH 32.0 (26-32) pg MCHC 32.2 (32-36) g/dL RDW 12.7 (11.5-14.0) % Plt Count 490 H (150-450) x10^3/uL MPV 9.0 (7.5-11.0) fL Gran % 80.9 H (36.0-66.0) % Immature Gran % (Auto) 0.5 H (0.00-0.4) % Nucleat RBC Rel Count 0.0 (0.00-0.1) % Eos # (Auto) 0.25 (0-0.5) x10^3/uL Immature Gran # (Auto) 0.08 H (0.00-0.03) x10^3u/L Absolute Lymphs (auto) 1.80 (1.0-4.6) x10^3/uL Absolute Monos (auto) 0.64 (0.0-1.3) x10^3/uL Absolute Nucleated RBC 0.00 (0.00-0.01) x10^3u/L Lymphocytes % 12.1 L (24.0-44.0) % Monocytes % 4.3 (0.0-12.0) % Eosinophils % 1.7 (0.00-5.0) % Basophils % 0.5 (0.0-0.4) % Absolute Granulocytes 12.02 H (1.4-6.9) x10^3/uL Basophils # 0.07 (0-0.4) x10^3/uL Sodium 139 (135-145) mmol/L Potassium 4.6 (3.5-5.1) mmol/L Chloride 101 (98-107) mmol/L Carbon Dioxide 29 (22-30) mmol/L Anion Gap 14.4 (5-15) MEQ/L BUN 27 H (9-20) mg/dL Creatinine 0.92 (0.66-1.25) mg/dL Estimated GFR 86.8 ML/MIN Glucose 105 (74-106) mg/dL Calcium 9.5 (8.4-10.2) mg/dL Total Bilirubin 0.30 (0.2-1.3) mg/dL AST 22 (17-59) U/L ALT 38 (0-50) U/L Alkaline Phosphatase 111 (38-126) U/L Troponin I < 0.012 (0.000-0.034) ng/mL NT-Pro-B Natriuret Pep (<300) pg/mL Serum Total Protein 7.4 (6.3-8.2) g/dL Albumin 3.9 (3.5-5.0) g/dL Procalcitonin (0.030-0.080) ng/mL Urine Color (Yellow) Urine Appearance (Clear) Urine pH (4.6-8.0) Ur Specific [place] (1.005-1.030) Urine Protein (Negative) Urine Glucose (UA) (Negative) mg/dL Urine Ketones (Negative) Urine Blood (Negative) Urine Nitrite (Negative) Urine Bilirubin (Negative) Urine Urobilinogen (0.2) mg/dL Ur Leukocyte Esterase (Negative) U Hyaline Cast (Auto) (0-2) /LPF Urine Microscopic RBC (0-5) /HPF Urine Microscopic WBC (0-5) /HPF Ur Epithelial Cells (None Seen) /HPF Urine Bacteria (None Seen) /HPF Urine Culture Reflexed (NO) 12/11/23 12/11/23 12/11/23 Range/Units 11:00 14:35 17:00 WBC (4.0-10.5) x10^3/uL RBC (4.1-5.6) x10^6/uL Hgb (12.5-18.0) g/dL Hct (42-50) % MCV (78-100) fL MCH (26-32) pg MCHC (32-36) g/dL RDW (11.5-14.0) % Plt Count (150-450) x10^3/uL MPV (7.5-11.0) fL Gran % (36.0-66.0) % Immature Gran % (Auto) (0.00-0.4) % Nucleat RBC Rel Count (0.00-0.1) % Eos # (Auto) (0-0.5) x10^3/uL Immature Gran # (Auto) (0.00-0.03) x10^3u/L Absolute Lymphs (auto) (1.0-4.6) x10^3/uL Absolute Monos (auto) (0.0-1.3) x10^3/uL Absolute Nucleated RBC (0.00-0.01) x10^3u/L Lymphocytes % (24.0-44.0) % Monocytes % (0.0-12.0) % Eosinophils % (0.00-5.0) % Basophils % (0.0-0.4) % Absolute Granulocytes (1.4-6.9) x10^3/uL Basophils # (0-0.4) x10^3/uL Sodium (135-145) mmol/L Potassium (3.5-5.1) mmol/L Chloride (98-107) mmol/L Carbon Dioxide (22-30) mmol/L Anion Gap (5-15) MEQ/L BUN (9-20) mg/dL Creatinine (0.66-1.25) mg/dL Estimated GFR ML/MIN Glucose (74-106) mg/dL Calcium (8.4-10.2) mg/dL Total Bilirubin (0.2-1.3) mg/dL AST (17-59) U/L ALT (0-50) U/L Alkaline Phosphatase (38-126) U/L Troponin I < 0.012 (0.000-0.034) ng/mL NT-Pro-B Natriuret Pep 65.2 (<300) pg/mL Serum Total Protein (6.3-8.2) g/dL Albumin (3.5-5.0) g/dL Procalcitonin (0.030-0.080) ng/mL Urine Color Yellow (Yellow) Urine Appearance Clear (Clear) Urine pH 7.5 (4.6-8.0) Ur Specific [place] >=1.030 A (1.005-1.030) Urine Protein Negative (Negative) Urine Glucose (UA) Negative (Negative) mg/dL Urine Ketones Negative (Negative) Urine Blood Negative (Negative) Urine Nitrite Negative (Negative) Urine Bilirubin Negative (Negative) Urine Urobilinogen 0.2 (0.2) mg/dL Ur Leukocyte Esterase Negative (Negative) U Hyaline Cast (Auto) NONE SEEN (0-2) /LPF Urine Microscopic RBC 0-2 (0-5) /HPF Urine Microscopic WBC 0-2 (0-5) /HPF Ur Epithelial Cells None Seen (None Seen) /HPF Urine Bacteria None Seen (None Seen) /HPF Urine Culture Reflexed NO (NO) 12/11/23 12/11/23 12/12/23 Range/Units 18:28 18:28 04:20 WBC 12.2 H (4.0-10.5) x10^3/uL RBC 3.57 L (4.1-5.6) x10^6/uL Hgb 11.4 L (12.5-18.0) g/dL Hct 35.6 L (42-50) % MCV 99.7 (78-100) fL MCH 31.9 (26-32) pg MCHC 32.0 (32-36) g/dL RDW 12.8 (11.5-14.0) % Plt Count 444 (150-450) x10^3/uL MPV 9.2 (7.5-11.0) fL Gran % 69.9 H (36.0-66.0) % Immature Gran % (Auto) 0.7 H (0.00-0.4) % Nucleat RBC Rel Count 0.0 (0.00-0.1) % Eos # (Auto) 0.54 H (0-0.5) x10^3/uL Immature Gran # (Auto) 0.08 H (0.00-0.03) x10^3u/L Absolute Lymphs (auto) 2.18 (1.0-4.6) x10^3/uL Absolute Monos (auto) 0.81 (0.0-1.3) x10^3/uL Absolute Nucleated RBC 0.00 (0.00-0.01) x10^3u/L Lymphocytes % 17.9 L (24.0-44.0) % Monocytes % 6.6 (0.0-12.0) % Eosinophils % 4.4 (0.00-5.0) % Basophils % 0.5 (0.0-0.4) % Absolute Granulocytes 8.54 H (1.4-6.9) x10^3/uL Basophils # 0.06 (0-0.4) x10^3/uL Sodium (135-145) mmol/L Potassium (3.5-5.1) mmol/L Chloride (98-107) mmol/L Carbon Dioxide (22-30) mmol/L Anion Gap (5-15) MEQ/L BUN (9-20) mg/dL Creatinine (0.66-1.25) mg/dL Estimated GFR ML/MIN Glucose (74-106) mg/dL Calcium (8.4-10.2) mg/dL Total Bilirubin (0.2-1.3) mg/dL AST (17-59) U/L ALT (0-50) U/L Alkaline Phosphatase (38-126) U/L Troponin I < 0.012 (0.000-0.034) ng/mL NT-Pro-B Natriuret Pep (<300) pg/mL Serum Total Protein (6.3-8.2) g/dL Albumin (3.5-5.0) g/dL Procalcitonin 0.055 (0.030-0.080) ng/mL Urine Color (Yellow) Urine Appearance (Clear) Urine pH (4.6-8.0) Ur Specific [place] (1.005-1.030) Urine Protein (Negative) Urine Glucose (UA) (Negative) mg/dL Urine Ketones (Negative) Urine Blood (Negative) Urine Nitrite (Negative) Urine Bilirubin (Negative) Urine Urobilinogen (0.2) mg/dL Ur Leukocyte Esterase (Negative) U Hyaline Cast (Auto) (0-2) /LPF Urine Microscopic RBC (0-5) /HPF Urine Microscopic WBC (0-5) /HPF Ur Epithelial Cells (None Seen) /HPF Urine Bacteria (None Seen) /HPF Urine Culture Reflexed (NO) 12/12/23 Range/Units 04:20 WBC (4.0-10.5) x10^3/uL RBC (4.1-5.6) x10^6/uL Hgb (12.5-18.0) g/dL Hct (42-50) % MCV (78-100) fL MCH (26-32) pg MCHC (32-36) g/dL RDW (11.5-14.0) % Plt Count (150-450) x10^3/uL MPV (7.5-11.0) fL Gran % (36.0-66.0) % Immature Gran % (Auto) (0.00-0.4) % Nucleat RBC Rel Count (0.00-0.1) % Eos # (Auto) (0-0.5) x10^3/uL Immature Gran # (Auto) (0.00-0.03) x10^3u/L Absolute Lymphs (auto) (1.0-4.6) x10^3/uL Absolute Monos (auto) (0.0-1.3) x10^3/uL Absolute Nucleated RBC (0.00-0.01) x10^3u/L Lymphocytes % (24.0-44.0) % Monocytes % (0.0-12.0) % Eosinophils % (0.00-5.0) % Basophils % (0.0-0.4) % Absolute Granulocytes (1.4-6.9) x10^3/uL Basophils # (0-0.4) x10^3/uL Sodium 138 (135-145) mmol/L Potassium 4.4 (3.5-5.1) mmol/L Chloride 102 (98-107) mmol/L Carbon Dioxide 31 H (22-30) mmol/L Anion Gap 10.2 (5-15) MEQ/L BUN 27 H (9-20) mg/dL Creatinine 1.09 (0.66-1.25) mg/dL Estimated GFR 70.8 ML/MIN Glucose 105 (74-106) mg/dL Calcium 9.0 (8.4-10.2) mg/dL Total Bilirubin 0.10 L (0.2-1.3) mg/dL AST 18 (17-59) U/L ALT 29 (0-50) U/L Alkaline Phosphatase 86 (38-126) U/L Troponin I (0.000-0.034) ng/mL NT-Pro-B Natriuret Pep (<300) pg/mL Serum Total Protein 6.2 L (6.3-8.2) g/dL Albumin 3.3 L (3.5-5.0) g/dL Procalcitonin (0.030-0.080) ng/mL Urine Color (Yellow) Urine Appearance (Clear) Urine pH (4.6-8.0) Ur Specific [place] (1.005-1.030) Urine Protein (Negative) Urine Glucose (UA) (Negative) mg/dL Urine Ketones (Negative) Urine Blood (Negative) Urine Nitrite (Negative) Urine Bilirubin (Negative) Urine Urobilinogen (0.2) mg/dL Ur Leukocyte Esterase (Negative) U Hyaline Cast (Auto) (0-2) /LPF Urine Microscopic RBC (0-5) /HPF Urine Microscopic WBC (0-5) /HPF Ur Epithelial Cells (None Seen) /HPF Urine Bacteria (None Seen) /HPF Urine Culture Reflexed (NO) - Radiology Exams Ordered Rad Exams-Entire Visit: Radiology Procedures Category Date Time Status CHEST WITH CONTRAST [CT] Stat Exams 12/11/23 10:50 Completed - Procedures and Test Procedures and Tests throughout Hospitalization: Therapy Orders & Screens 12/11/23 16:45 Respiratory Therapy Consult ONCE Comment: Reason For Exam: Diagnosis: SOB, PNEUMOTHORAX 12/11/23 17:20 Respiratory Therapy Assessment DAILY Comment: Diagnosis: SOB, PNEUMOTHORAX 12/11/23 21:00 BiPap/CPAP ROUTINE Comment: home unit per home settings Diagnosis: SOB, PNEUMOTHORAX Discharge Exam General Appearance: no apparent distress Neurologic Exam: alert, oriented x 3, cooperative Eye Exam: PERRL Ears, Nose, Throat Exam: normal ENT inspection Neck Exam: normal inspection Respiratory Exam: diminished breath sounds Cardiovascular Exam: regular rate/rhythm, normal heart sounds Gastrointestinal/Abdomen Exam: soft, normal bowel sounds Male Genitalia Exam: deferred Rectal Exam: deferred Back Exam: normal inspection Extremity Exam: normal inspection Skin Exam: normal color Final Diagnosis/Problem List - Final Discharge Diagnosis/Problem (1) Leukocytosis Current Visit: Yes Status: Ruled-out Code(s): D72.829 - ELEVATED WHITE BLOOD CELL COUNT, UNSPECIFIED (2) Pneumothorax Current Visit: Yes Status: Chronic Code(s): J93.9 - PNEUMOTHORAX, UNSPECIFIED (3) Shortness of breath Current Visit: Yes Status: Resolved Code(s): R06.02 - SHORTNESS OF BREATH - Discharge Disposition: Home, Self-Care Condition: Stable Prescriptions: New Albuterol/Ipratropium 3ml Neb* [DUONEB 0.5-3 MG/3 ml Neb] 3 ml IH Q6HPRN PRN 30 Days #120 amp PRN Reason: Shortness Of Breath/Wheezing Continue Gabapentin [Neurontin ] 600 mg PO UD Tamsulosin HCl 0.4 mg [Flomax 0.4 MG] 0.4 mg PO HS [place] 3/Dha/Epa/Vitamin D3 [[place]-3 + Vitamin D3 Softgel] 1 each PO DAILY Multivitamin [Multi-Vitamin Daily] 1 each PO DAILY Celecoxib 100 mg [celeBREX 100 MG] 200 mg PO BID Hydrocodone /APAP 7.5/325 mg [[place] 7.5/325 mg Tab] 1 tab PO Q6HPRN PRN PRN Reason: Pain Simvastatin 20Mg [Zocor 20Mg] 20 mg PO HS Omeprazole 20 MG [Prilosec 20 mg] 20 mg PO DAILY Amlodipine Besylate 5 mg [Norvasc 5 mg] 10 mg PO HS Lisinopril/Hydrochlorothiazide [Lisinopril-Hctz 10-12.5 mg Tab] 1 tab PO DAILY Follow up with: HOSPITAL,'[facility] [Primary Care Provider] - DUSTIN REECE [ACTIVE STAFF] - (Today as scheduled)
[2023-12-12] MEDS: NEURONTIN PO SCH (09:21)
[2023-12-12] MEDS: hydroDIURIL 25 MG PO SCH (09:21)
[2023-12-12] MEDS: THERAGRAN MULTIVITAMIN PO SCH (09:22)
[2023-12-12] MEDS: Zestril 10 MG PO SCH (09:22)
[2023-12-12] MEDS: Protonix 40MG Tablet PO SCH (09:22)
[2023-12-12] MEDS ORDERED: NON-FORMULARY ITEM (Omeprazole 20 Mg [Prilosec 20 Mg] 20 MG Capsule.Dr) PO SCH (10:00)
[2023-12-12] MEDS ORDERED: NON-FORMULARY ITEM (Multivitamin [Multi-Vitamin Daily] 1 EACH Tablet) PO SCH (10:00)
[2023-12-12] MEDS ORDERED: NON-FORMULARY ITEM (Lisinopril/Hydrochlorothiazide [Lisinopril-Hctz 10-12.5 Mg Tab] 1 EACH PO SCH (10:00)
[2023-12-12 11:27] VITALS: BP 124/60; PULSE 63; TEMP 96.3
[2023-12-12] MEDS ORDERED: NEURONTIN PO SCH (22:00)
== END 2023-12-12 11:49 | disposition home or self-care (01) ==
LOC: ED 10:31 → MED SURG 14:58
PROVIDERS: ADMIT Internal Medicine; ATTEND Internal Medicine
DX: D72.829 Elevated white blood cell count, unspecified (principal); J93.9 Pneumothorax, unspecified; R06.02 Shortness of breath; E78.5 Hyperlipidemia, unspecified; I10 Essential (primary) hypertension; F17.200 Nicotine dependence, unspecified, uncomplicated; Z79.899 Other long term (current) drug therapy; Z20.828 Contact with and (suspected) exposure to other viral communicable diseases
CPT/HCPCS: 36000; 36415; 71260; 80053; 81001; 83880; 84145; 84484; 85025; 87040; 93005; 93041; 93268; 94640; 94760; 94762; 99285; Q3014; A9270-GY; G0378

== ENCOUNTER 2024-10-25 10:29 | Observation (INO) | payer MEDICARE, OTHER ==
--- NOTE | 2024-10-25 10:41 | ERPHSYRPT ---
- History of Present Illness Time Seen by Provider: 10/25/24 10:36 Historian: patient, family Exam Limitations: no limitations Physician History: Pt had onset of Shortness of Breath and CP today and came to ER. No hx cardiac but has had Left lung surgery for lung cancer and was smoker now much less. Chest with bilateral wheezes. No edema. Ht reg without M. Abd soft nontender wtihout peritoneal signs or masses. O2 sat 84% no home use of O2. Discussed with pt and available family risks and benefits of testing/Tx including CBC, CMP, EKG, Trop, BNP, D-dimer, UA, Amylase, Lipase, CT PE protocol ( after elevated D dimer was found) , CXR, swabs for Covid, RSV, Flu and Strep, steroids, duoneb, NTG, Antibiotic ( rocephin) and they wish to proceed so these are ordered. Results discussed with pt and available family. pain decreased form 4 to 2 after NTG. Timing/Duration: today Activities at Onset: none Quality: sharpness Location: substernal, central Chest Pain Radiation: no radiation Severity of Pain-Max: moderate Severity of Pain-Current: moderate Associated Symptoms: shortness of breath, cough Prior Chest Pain/Cardiac Workup: no prior chest pain, no prior cardiac workup Nitro Today/Relief: 0.4 mg x 1, provided by ED, mild relief Aspirin Treatment Today: 81 mg x 4, provided by ED Allergies/Adverse Reactions: terazosin Allergy (Verified 10/25/24 10:32) Home Medications: Amlodipine Besylate 5 mg [Norvasc 5 mg] 10 mg PO HS 02/28/13 [History] Celecoxib 100 mg [celeBREX 100 MG] 200 mg PO BID 02/28/13 [History] Gabapentin [Neurontin ] 600 mg PO UD 02/28/13 [History] Hydrocodone /APAP 7.5/325 mg [[place] 7.5/325 mg Tab] 1 tab PO Q6HPRN PRN 02/28/13 [History] Multivitamin [Multi-Vitamin Daily] 1 each PO DAILY 02/28/13 [History] [place] 3/Dha/Epa/Vitamin D3 [[place]-3 + Vitamin D3 Softgel] 1 each PO DAILY 02/28/13 [History] Omeprazole 20 MG [Prilosec 20 mg] 20 mg PO DAILY 02/28/13 [History] Simvastatin 20Mg [Zocor 20Mg] 20 mg PO HS 02/28/13 [History] Tamsulosin HCl 0.4 mg [Flomax 0.4 MG] 0.4 mg PO HS 02/28/13 [History] Lisinopril/Hydrochlorothiazide [Lisinopril-Hctz 10-12.5 mg Tab] 1 tab PO DAILY 12/11/23 [History] Hx Tetanus, Diphtheria Vaccination/Date Given: Yes Hx Influenza Vaccination/Date Given: Yes Hx Pneumococcal Vaccination/Date Given: Yes - Review of Systems Constitutional: No Fever, No Chills Eyes: No Symptoms Ears, Nose, & Throat: No Symptoms Respiratory: Cough, Dyspnea Cardiac: Chest Pain, No Edema, No Syncope Abdominal/Gastrointestinal: No Abdominal Pain, No Nausea, No Vomiting, No Diarrhea Genitourinary Symptoms: No Dysuria Musculoskeletal: No Back Pain, No Neck Pain Skin: No Rash Neurological: No Dizziness, No Focal Weakness, No Sensory Changes Psychological: No Symptoms Endocrine: No Symptoms Hematologic/Lymphatic: No Symptoms Immunological/Allergic: No Symptoms All Other Systems: Reviewed and Negative - Past Medical History Pertinent Past Medical History: Yes Neurological History: No Pertinent History ENT History: No Pertinent History Cardiac History: High Cholesterol, Hypertension Respiratory History: No Pertinent History, Lung Cancer, Sleep Apnea Endocrine Medical History: No Pertinent History Musculoskeletal History: Arthritis GI Medical History: No Pertinent History History: No Pertinent History Psycho-Social History: No Pertinent History Male Reproductive Disorders: Prostate Problems Other Medical History: left hydrocele - Past Surgical History Past Surgical History: Yes Neuro Surgical History: No Pertinent History Cardiac: No Pertinent History Respiratory: No Pertinent History Gastrointestinal: Appendectomy Genitourinary: No Pertinent History Musculoskeletal: Other Male Surgical History: No Pertinent History Other Surgical History: BACK SURGERY, hip replacement (left), LUNG NODULES REMOVED FROM LEFT LUNG ON 11/27/23 - Social History Smoking Status: Current every day smoker How long have you smoked: 61 YEARS Exposure to second hand smoke: No Drug Use: none Patient Lives Alone: No - Social Determinants of Health Will the patient participate in the screening: Yes Do you worry about a steady place to live?: No In the past 12 months,have you had to go without utilities?: No Transportation Issues: No Has anyone in your support network made you feel unsafe?: No Have you or anyone in your house had to go without enough: No - Nursing Vital Signs Nursing Vital Signs: Initial Vital Signs Pulse Rate 84 10/25/24 10:33 Respiratory Rate 22 10/25/24 10:33 Blood Pressure 191/109 10/25/24 10:33 O2 Sat by Pulse Oximetry 95 10/25/24 10:33 Pain Scale Pain Intensity 5 - Physical Exam General Appearance: no apparent distress, alert Eye Exam: PERRL/EOMI, eyes nml inspection Ears, Nose, Throat Exam: normal ENT inspection, moist mucous membranes Neck Exam: normal inspection, non-tender, supple, full range of motion Respiratory Exam: normal breath sounds, lungs clear, No respiratory distress Cardiovascular Exam: regular rate/rhythm, normal heart sounds Gastrointestinal/Abdomen Exam: soft, No tenderness, No mass Back Exam: normal inspection, No CVA tenderness, No vertebral tenderness Extremity Exam: normal inspection, normal range of motion Neurologic Exam: alert, oriented x 3, cooperative, normal mood/affect, sensation nml, No motor deficits Skin Exam: normal color, warm, dry SpO2: 95 - Course Nursing assessment & vital signs reviewed: Yes EKG Interpreted by Me: Left [place] Deviation, NORMAL INTERVALS, Non-specific ST Changes, Other (LVH) - Radiology Exams Chest X-ray Interpretation: Interpreted by me, No Pneumothorax, Infiltrates (Right lung), Other (SP left lobectomy) - CT Exams Chest CT Interpretation: Tele-radiologist Report, No PE, Other (Right lung infiltrates and hilar lesions) Ordered Tests: Active Orders 24 hr Category Date Time Status EKG-ER Only STAT Care 10/25/24 10:41 Active IV Insertion STAT Care 10/25/24 10:41 Active CHEST 1 VIEW (PORTABLE) Stat Exams 10/25/24 10:42 Taken CHEST WITH CONTRAST [CT] Stat Exams 10/25/24 11:32 Completed AMYLASE Stat Lab 10/25/24 10:40 Completed CBC W DIFF Stat Lab 10/25/24 10:40 Completed CMP Stat Lab 10/25/24 10:40 Completed D-DIMER QUANTITATIVE Stat Lab 10/25/24 10:40 Completed LIPASE Stat Lab 10/25/24 10:40 Completed Manual Differential NC Stat Lab 10/25/24 10:40 Completed NT PRO BNPII Stat Lab 10/25/24 10:40 Completed TROPONIN Q4H Lab 10/25/24 10:40 Completed TROPONIN Q4H Lab 10/25/24 14:59 Completed TROPONIN Q4H Lab 10/25/24 18:45 Ordered UA W/RFX UR CULTURE Stat Lab 10/25/24 11:32 Completed Respiratory Therapy Assessment DAILY RT 10/25/24 11:11 Active Medication Summary Discontinued Medications Generic Name Dose Route Start Last Admin Trade Name Freq PRN Reason Stop Dose Admin Albuterol/Ipratropium 3 ml 10/25/24 10:44 10/25/24 11:05 Ipratropium/Albuterol Sulfate 3 Ml Ampul.Neb IH 10/25/24 10:45 3 ml STAT ONE Administration Albuterol/Ipratropium Confirm 10/25/24 11:04 Ipratropium/Albuterol Sulfate 3 Ml Ampul.Neb Administered 10/25/24 11:05 Dose 3 ml IH .STK-MED ONE Albuterol/Ipratropium 3 ml 10/25/24 16:17 10/25/24 16:23 Ipratropium/Albuterol Sulfate 3 Ml Ampul.Neb IH 10/25/24 16:18 3 ml STAT ONE Administration Albuterol/Ipratropium Confirm 10/25/24 16:17 Ipratropium/Albuterol Sulfate 3 Ml Ampul.Neb Administered 10/25/24 16:18 Dose 3 ml IH .STK-MED ONE Aspirin 324 mg 10/25/24 10:46 10/25/24 10:51 Aspirin 81 Mg Tab.Chew PO 10/25/24 10:47 324 mg STAT ONE Administration Aspirin Confirm 10/25/24 10:48 Aspirin 81 Mg Tab.Chew Administered 10/25/24 10:49 Dose 324 mg .ROUTE .STK-MED ONE Methylprednisolone Sodium 0 mg 10/25/24 10:44 10/25/24 10:50 Succinate 125 mg/ Sterile IV 10/25/24 10:45 125 mg Water 2 ml STAT ONE Administration Ceftriaxone Sodium 1 gm in 100 mls @ 200 mls/hr 10/25/24 10:46 10/25/24 12:24 Rocephin 1 Gm / 100 Ml Nacl IV 10/25/24 11:15 Infused STAT ONE Infusion Ceftriaxone Sodium Confirm 10/25/24 10:52 Rocephin 1 Gm / 100 Ml Nacl Administered 10/25/24 10:53 Dose 1 gm in 100 mls @ ud IV .STK-MED ONE Methylprednisolone Sodium Succinate Confirm 10/25/24 10:50 Methylprednis Sod Succ 125 Mg/2 Ml Vial Administered 10/25/24 10:51 Dose 125 mg .ROUTE .STK-MED ONE Nitroglycerin 0.4 mg 10/25/24 10:45 10/25/24 10:51 Nitroglycerin 0.4 Mg (Ed) 0.4 Mg Tab.Subl SL 10/25/24 10:46 0.4 mg STAT ONE Administration Nitroglycerin Confirm 10/25/24 10:49 Nitroglycerin 0.4 Mg (Ed) 0.4 Mg Tab.Subl Administered 10/25/24 10:50 Dose 0.4 mg SL .STK-MED ONE Sterile Water Confirm 10/25/24 10:48 Water For Injection,Sterile 10 Ml Vial Administered 10/25/24 10:49 Dose 10 ml IJ .STK-MED ONE Lab/Rad Data: Laboratory Result Diagrams 10/25/24 10:40 10/25/24 10:40 Laboratory Results 10/25/24 10/25/24 10/25/24 Range/Units 14:59 11:32 10:57 WBC (4.23-9.07) x10^3/uL RBC (4.63-6.08) x10^6/uL Hgb (13.7-17.5) g/dL Hct (40.1-51.0) % MCV (79.0-92.2) fL MCH (25.7-32.2) pg MCHC (32.3-36.5) g/dL RDW (11.6-14.4) % Plt Count (163-337) x10^3/uL MPV (9.4-12.4) fL Segmented Neutrophils (34.0-67.9) % Band Neutrophils (0.0-2.0) % Lymphocytes (Manual) (21.8-53.1) % Monocytes (Manual) (5.3-12.2) % Atypical Lymphocytes % Platelet Estimate (NORMAL) RBC Morphology Anisocytosis D-Dimer (0.0-0.50) mg/L Sodium (135-145) mmol/L Potassium (3.5-5.1) mmol/L Chloride (98-107) mmol/L Carbon Dioxide (22-30) mmol/L Anion Gap (5-15) MEQ/L BUN (9-20) mg/dL Creatinine (0.66-1.25) mg/dL Estimated GFR ML/MIN Glucose (74-106) mg/dL Calcium (8.4-10.2) mg/dL Total Bilirubin (0.2-1.3) mg/dL AST (17-59) U/L ALT (0-50) U/L Alkaline Phosphatase (38-126) U/L Troponin I < 0.012 (0.000-0.033) ng/mL NT-Pro-B Natriuret Pep (<300) pg/mL Serum Total Protein (6.3-8.2) g/dL Albumin (3.5-5.0) g/dL Amylase (30-110) U/L Lipase (23-300) U/L Urine Color Dark Yellow (Yellow) Urine Appearance Clear (Clear) Urine pH 5.0 (4.6-8.0) Ur Specific [place] >=1.030 A (1.005-1.030) Urine Protein Negative (Negative) Urine Glucose (UA) Negative (Negative) mg/dL Urine Ketones Trace A (Negative) Urine Blood Negative (Negative) Urine Nitrite Negative (Negative) Urine Bilirubin Negative (Negative) Urine Urobilinogen 0.2 (0.2) mg/dL Ur Leukocyte Esterase Negative (Negative) U Hyaline Cast (Auto) 6-10 A (0-2) /LPF Urine Microscopic RBC 0-2 (0-5) /HPF Urine Microscopic WBC 0-2 (0-5) /HPF Ur Epithelial Cells None Seen (None Seen) /HPF Urine Bacteria None Seen (None Seen) /HPF Urine Culture Reflexed NO (NO) Influenza Type A Ag NEGATIVE (NEGATIVE) Influenza Type B Ag NEGATIVE (NEGATIVE) RSV (PCR) NEGATIVE (NEGATIVE) SARS-CoV-2 (PCR) NEGATIVE (NEGATIVE) 10/25/24 10/25/24 10/25/24 Range/Units 10:40 10:40 10:40 WBC (4.23-9.07) x10^3/uL RBC (4.63-6.08) x10^6/uL Hgb (13.7-17.5) g/dL Hct (40.1-51.0) % MCV (79.0-92.2) fL MCH (25.7-32.2) pg MCHC (32.3-36.5) g/dL RDW (11.6-14.4) % Plt Count (163-337) x10^3/uL MPV (9.4-12.4) fL Segmented Neutrophils (34.0-67.9) % Band Neutrophils (0.0-2.0) % Lymphocytes (Manual) (21.8-53.1) % Monocytes (Manual) (5.3-12.2) % Atypical Lymphocytes % Platelet Estimate (NORMAL) RBC Morphology Anisocytosis D-Dimer 0.97 H* (0.0-0.50) mg/L Sodium 138 (135-145) mmol/L Potassium 4.3 (3.5-5.1) mmol/L Chloride 102 (98-107) mmol/L Carbon Dioxide 24 (22-30) mmol/L Anion Gap 16.2 H (5-15) MEQ/L BUN 32 H (9-20) mg/dL Creatinine 0.75 (0.66-1.25) mg/dL Estimated GFR 93.5 ML/MIN Glucose 108 H (74-106) mg/dL Calcium 9.6 (8.4-10.2) mg/dL Total Bilirubin 0.50 (0.2-1.3) mg/dL AST 65 H (17-59) U/L ALT 70 H (0-50) U/L Alkaline Phosphatase 151 H (38-126) U/L Troponin I < 0.012 (0.000-0.033) ng/mL NT-Pro-B Natriuret Pep 386 (<300) pg/mL Serum Total Protein 6.6 (6.3-8.2) g/dL Albumin 3.8 (3.5-5.0) g/dL Amylase 39 (30-110) U/L Lipase 23 (23-300) U/L Urine Color (Yellow) Urine Appearance (Clear) Urine pH (4.6-8.0) Ur Specific [place] (1.005-1.030) Urine Protein (Negative) Urine Glucose (UA) (Negative) mg/dL Urine Ketones (Negative) Urine Blood (Negative) Urine Nitrite (Negative) Urine Bilirubin (Negative) Urine Urobilinogen (0.2) mg/dL Ur Leukocyte Esterase (Negative) U Hyaline Cast (Auto) (0-2) /LPF Urine Microscopic RBC (0-5) /HPF Urine Microscopic WBC (0-5) /HPF Ur Epithelial Cells (None Seen) /HPF Urine Bacteria (None Seen) /HPF Urine Culture Reflexed (NO) Influenza Type A Ag (NEGATIVE) Influenza Type B Ag (NEGATIVE) RSV (PCR) (NEGATIVE) SARS-CoV-2 (PCR) (NEGATIVE) 10/25/24 Range/Units 10:40 WBC 26.8 H* (4.23-9.07) x10^3/uL RBC 3.60 L (4.63-6.08) x10^6/uL Hgb 11.4 L (13.7-17.5) g/dL Hct 34.5 L (40.1-51.0) % MCV 95.8 H (79.0-92.2) fL MCH 31.7 (25.7-32.2) pg MCHC 33.0 (32.3-36.5) g/dL RDW 13.3 (11.6-14.4) % Plt Count 363 H (163-337) x10^3/uL MPV 9.1 L (9.4-12.4) fL Segmented Neutrophils 88 H (34.0-67.9) % Band Neutrophils 1 (0.0-2.0) % Lymphocytes (Manual) 4 L (21.8-53.1) % Monocytes (Manual) 6 (5.3-12.2) % Atypical Lymphocytes 1 % Platelet Estimate NORMAL (NORMAL) RBC Morphology ABNORMAL Anisocytosis 1+ D-Dimer (0.0-0.50) mg/L Sodium (135-145) mmol/L Potassium (3.5-5.1) mmol/L Chloride (98-107) mmol/L Carbon Dioxide (22-30) mmol/L Anion Gap (5-15) MEQ/L BUN (9-20) mg/dL Creatinine (0.66-1.25) mg/dL Estimated GFR ML/MIN Glucose (74-106) mg/dL Calcium (8.4-10.2) mg/dL Total Bilirubin (0.2-1.3) mg/dL AST (17-59) U/L ALT (0-50) U/L Alkaline Phosphatase (38-126) U/L Troponin I (0.000-0.033) ng/mL NT-Pro-B Natriuret Pep (<300) pg/mL Serum Total Protein (6.3-8.2) g/dL Albumin (3.5-5.0) g/dL Amylase (30-110) U/L Lipase (23-300) U/L Urine Color (Yellow) Urine Appearance (Clear) Urine pH (4.6-8.0) Ur Specific [place] (1.005-1.030) Urine Protein (Negative) Urine Glucose (UA) (Negative) mg/dL Urine Ketones (Negative) Urine Blood (Negative) Urine Nitrite (Negative) Urine Bilirubin (Negative) Urine Urobilinogen (0.2) mg/dL Ur Leukocyte Esterase (Negative) U Hyaline Cast (Auto) (0-2) /LPF Urine Microscopic RBC (0-5) /HPF Urine Microscopic WBC (0-5) /HPF Ur Epithelial Cells (None Seen) /HPF Urine Bacteria (None Seen) /HPF Urine Culture Reflexed (NO) Influenza Type A Ag (NEGATIVE) Influenza Type B Ag (NEGATIVE) RSV (PCR) (NEGATIVE) SARS-CoV-2 (PCR) (NEGATIVE) - Progress Progress: improved, re-examined Air Movement: good Progress Note: 10/25/24 13:14 We are waiting for the radiology reading tele for CT. When the O2 is taken off ( such as in radiology) the pt becomes short of breath again which resolves when O2 back on. . 10/25/24 13:[address] reading which is taking more time today. Discussed with pt and he agrees best to consult hospitalist to consider coming in due to new O2 requirement and lung infection, but awaiting CT to rule out PE. 10/25/24 14:49 CT back - no PE but some lung lesions/infiltrates. COnsulting [facility] for approval to admit here vs transfer . 10/25/24 15:22 We have been unable to get a response from the PA for this pt and have enlisted the DC planning here to assist with approval for considering consult to hospitalist for admission here but need approval. This will take additional time. 10/25/24 15:25 Our DC planning people were unable to help, so we are continuing to try to contact the PA for approval but this is resuting in delay to actual admission although we are giving antibiotics as indicated and O2 in ER and pt is stable and comfortable. 10/25/24 15:30 10/25/24 15:54Pt was on speaker with PA and they expected that his stay would likely be approved but not a guarantee, and he expressed that he preferred to stay here anyway and had secondary insurance as well as [facility] and would accept risk that PA might not cover admit here. Consulting with hospitalist for obs here. 10/25/24 16:14 [facility] called back and approved admission here. Awaiting hospitalist at this time. 10/25/24 16:20 10/25/24 16:[address] Gardner hospitalist and he accepted in consultation for admission here. Blood Culture(s) Obtained: No Antibiotics given: Yes Discussed with Dr.: Other (Dr. Burger) Will see patient in: hospital (observation) Counseled pt/family regarding: lab results, diagnosis, need for follow-up, rad results Medical Desision Making - Independent Historian Additional History obtained from: Family - Discussion of managment Care discussed with:: hospitalist Reviewed:: Test results, Need for additional workup Agreed on:: Treatment plan, need for follow-up, decision to admit, place in obs Will see patient: in hospital - Diagnostic Testing Diagnostic test were ordered, analyzed, and reviewed by me: Yes Radiological Interpretation: Interpreted by me - Risk of complications The pt has a mod risk of morbidity or mortality based on: Need for prescription drug management The pt has a high risk of morbidity or mortality based on: Decision regarding hospitilization or escalation of hosp level of care - Departure Departure Disposition: Observation Clinical Impression: Pneumonia involving right lung Condition: Good Critical Care Time: No Referrals: HOSPITAL,'S [Primary Care Provider] - Follow up/PCP as directed Additional Instructions: Followup with your Drs. for lung infiltrates and hilar lesions/ cavities and li rachell tests.
[2024-10-25] MEDS ORDERED: Sterile H2O 10 ml IJ ONE ×2 (10:48→21:44)
[2024-10-25] MEDS ORDERED: BABY ASPIRIN 81 MG CHEW ONE (10:48)
[2024-10-25] MEDS ORDERED: Nitrostat 0.4 MG (ED) SL ONE (10:49)
[2024-10-25] MEDS ORDERED: solu-MEDROL ONE ×2 (10:50→21:42)
[2024-10-25] MEDS: solu-MEDROL 125 MG, Sterile H2O 10 ml 2 ML IV ONE (10:50)
[2024-10-25] MEDS: BABY ASPIRIN 81 MG CHEW PO ONE (10:51)
[2024-10-25] MEDS: Nitrostat 0.4 MG (ED) SL ONE (10:51)
[2024-10-25] MEDS ORDERED: ROCEPHIN 1 GM / 100 ML NaCl 1 GM/100 ML IVPB IV ONE (10:52)
[2024-10-25] MEDS: ROCEPHIN 1 GM / 100 ML NaCl 1 GM/100 ML IVPB IV ONE (10:53)
[2024-10-25 10:58] LABS: Hematocrit 34.5 % (40.1-51.0); Hemoglobin 11.4 g/dL (13.7-17.5); Mean Cell Volume 95.8 fL (79.0-92.2); Mean Corpuscular Hemoglobin 31.7 pg (25.7-32.2); Mean Platelet Volume 9.1 fL (9.4-12.4); Platelet Count 363 x10^3/uL (163-337); Red Cell Distribution Width 13.3 % (11.6-14.4)
[2024-10-25 11:00] LABS: White Blood Count 26.8 x10^3/uL (4.23-9.07)
[2024-10-25] MEDS ORDERED: DUONEB 0.5-3 MG/3 ml Neb IH ONE ×2 (11:04→16:17)
[2024-10-25] MEDS: DUONEB 0.5-3 MG/3 ml Neb IH ONE ×2 (11:05→16:23)
[2024-10-25 11:23] LABS: ALBUMIN 3.8 g/dL (3.5-5.0); ANION GAP 16.2 MEQ/L (5-15); BILIRUBIN,TOTAL 0.5 mg/dL (0.2-1.3); Calcium 9.6 mg/dL (8.4-10.2); Creatinine 1 0.75 mg/dL (0.66-1.25); EST GLOMERULAR FILTRATION RATE 93.5 ML/MIN; Potassium 4.3 mmol/L (3.5-5.1); Total Protein 6.6 g/dL (6.3-8.2)
[2024-10-25 11:34] LABS: INFLUENZA A NEGATIVE (NEGATIVE); INFLUENZA B NEGATIVE (NEGATIVE); RESPIRATORY SYNCTIAL VIRUS NEGATIVE (NEGATIVE); SARS-CoV-2 Xpert Express NEGATIVE (NEGATIVE)
[2024-10-25 11:53] LABS: ATYPICAL LYMPHS 1 %; BAND 1 % (0.0-2.0); Lymphocytes 4 % (21.8-53.1); Monocyte 6 % (5.3-12.2); Neutrophils 88 % (34.0-67.9); Total Cells Counted 100
[2024-10-25 11:54] LABS: ANISOCYTOSIS 1+
[2024-10-25 11:55] LABS: Platelet Estimate NORMAL (NORMAL)
[2024-10-25 11:56] LABS: Appearance Clear (Clear); Bacteria None Seen /HPF (None Seen); Bilirubin Negative (Negative); Blood Negative (Negative); Epithelial Cells None Seen /HPF (None Seen); Glucose, Urine Negative (Negative); Ketones Trace (Negative); Leukocyte Esterase Negative (Negative); Nitrite Negative (Negative); Protein,Urine Dip Negative (Negative); RBC 0-2 /HPF (0-5); Specific Gravity >=1.030 (1.005-1.030); Urobilinogen 0.2 mg/dL (0.2); WBC 0-2 /HPF (0-5)
--- NOTE | 2024-10-25 14:42 | XRAY ---
CLINICAL HISTORY: elevated D dimer SObreath COMPARISON: None. TECHNIQUE: Contiguous 3.[address] images of the chest were acquired with the administration of intravenous contrast. Coronal and sagittal reconstructions were obtained. 80 cc isovue intravenous contrast was administered. One of the following dose reduction techniques was utilized for this exam: Automated exposure control, adjustment of the mA and/or kV according to patient size, and use of iterative reconstruction DLP 544.87 FINDINGS: Lungs: Decreased left lung volume with likely surgical sutures. Right upper and middle pulmonary ground glass opacities with interlobular septal thickening, giving crazy paving pattern. Cavitary lesion in the upper part of the remaining left lung as well as parenchymal band/thickening. Right hilar hypodense lesion measuring about [id number]. No right pleural effusion or pleural thickening. Left pleural effusion. Mediastinum: No mediastinal mass or abnormal lymphadenopathy. Hilar Structures: Right hilar hypodense lesion measuring about [id number]. Heart and Great Vessels: Normal heart size and configuration. Mild pericardial effusion. Normal caliber and course of the thoracic aorta and other great vessels. Partially calcified atherosclerosis of the aorta and likely the coronaries. Normal enhancement of the great vessels post-contrast. Pulmonary Arteries: No evidence of pulmonary embolism. Normal size and course of the pulmonary arteries. Esophagus: Normal course and caliber. No masses or dilatation. Bones: No fractures. Diffuse degenerative changes. Chest Wall: No masses or soft tissue abnormalities. Upper Abdomen: Splenic tiny calcifications are noted. Thyroid: Normal size and morphology. No nodules or masses. IMPRESSION: 1. No evidence of pulmonary embolism, 2. Decreased left lung volume with likely surgical sutures (could be left lobectomy, correlation with surgical history is needed) 3. Cavitary lesion ([id number]) in the upper part of the remaining left lung as well as parenchymal band/thickening. 4. Right upper and middle pulmonary ground glass opacities with interlobular septal thickening, giving crazy paving pattern, it could be alveolitis, alveolar proteniosis, or otherpattern of infection, clinical correlation and follow up is needed. 5. Mild Left pleural effusion. 6. Right hilar hypodense lesion measuring about [id number], could be elissa. 7. Mild pericardial effusion. Electronically Signed by: Claudette Sandoval MD. (10/25/2024 14:39:11 EST)
--- NOTE | 2024-10-25 17:46 | PCM.HP ---
History of Present Illness - Chief Complaint Chief Complaint: shortness of breath and CP Date: 10/25/24 History of Present Illness: is a 74 year old male with pmhx of HTN, hyperlipidemia, Lung cancer with recent lobectomy of left lung, sleep apnea, OA, BPH, GERD, and daily smoker. [facility]. He came to the ER today for shortness of breath and CP. Pt states he has been SOB since lobectomy of Left lung in November of 2023 but this week was worse. He saw Dr. Reece and was given an IM injection of steroids and antibiotics in office and sen home with antibiotics and steroids. Today sxs worsened and he was unable to walk across the room w/o being SOB. D-Dimer elevated 0.97. CT negative for PE. CT shows: decreased left lung volume with likely surgical sutures (could be left lobectomy, correlation with surgical history is needed). Cavitary lesion ([id number]) in the upper part of the remaining left lung as well as parenchymal band/thickening. Right upper and middle pulmonary ground glass opacities with interlobular septal thickening, giving crazy paving pattern, it could be alveolitis, alveolar proteniosis, or otherpattern of infection, clinical correlation and follow up is needed. Mild Left pleural effusion. Right hilar hypodense lesion measuring about [id number], could be elissa. Mild pericardial effusion. Pulmonology consulted. Pt placed in isolation for possible TB. TB gold and TB skin test ordered. TB GOLD test is a send out test here and takes some time to get back. WBC 26.8. He is on 3lNC 93%, baseline is room air. Trop x2 negative. Anion gap 16.2. Started IV antibiotics, steroids, duonebs, and Advair. - Review of Systems Constitutional: No Fever, No Chills Eyes: No Symptoms Ears, Nose, & Throat: No Symptoms Respiratory: Cough, Short Of Breath, Wheezing Cardiac: No Chest Pain, No Edema, No Syncope Abdominal/Gastrointestinal: No Abdominal Pain, No Nausea, No Vomiting, No Diarrhea Genitourinary Symptoms: No Dysuria Musculoskeletal: No Back Pain, No Neck Pain Skin: No Rash Neurological: No Dizziness, No Focal Weakness, No Sensory Changes Psychological: No Symptoms Endocrine: No Symptoms Hematologic/Lymphatic: No Symptoms Immunological/Allergic: No Symptoms Medications & Allergies Home Medications: Home Medication List Amlodipine Besylate 5 mg [Norvasc 5 mg] 10 mg PO HS 02/28/13 [History Confirmed 12/11/23] Celecoxib 100 mg [celeBREX 100 MG] 200 mg PO BID 02/28/13 [History Confirmed 12/11/23] Gabapentin [Neurontin ] 600 mg PO UD 02/28/13 [History Confirmed 12/11/23] Hydrocodone /APAP 7.5/325 mg [[place] 7.5/325 mg Tab] 1 tab PO Q6HPRN PRN 02/28/13 [History Confirmed 12/11/23] Multivitamin [Multi-Vitamin Daily] 1 each PO DAILY 02/28/13 [History Confirmed 12/11/23] [place] 3/Dha/Epa/Vitamin D3 [[place]-3 + Vitamin D3 Softgel] 1 each PO DAILY 02/28/13 [History Confirmed 12/11/23] Omeprazole 20 MG [Prilosec 20 mg] 20 mg PO DAILY 02/28/13 [History Confirmed 12/11/23] Simvastatin 20Mg [Zocor 20Mg] 20 mg PO HS 02/28/13 [History Confirmed 12/11/23] Tamsulosin HCl 0.4 mg [Flomax 0.4 MG] 0.4 mg PO HS 02/28/13 [History Confirmed 12/11/23] Lisinopril/Hydrochlorothiazide [Lisinopril-Hctz 10-12.5 mg Tab] 1 tab PO DAILY 12/11/23 [History Confirmed 12/11/23] Albuterol/Ipratropium 3ml Neb* [DUONEB 0.5-3 MG/3 ml Neb] 3 ml IH Q6HPRN PRN 30 Days #120 amp 12/12/23 [Rx] Allergies/Adverse Reactions: Allergies Allergy/AdvReac Type Severity Reaction Status Date / Time terazosin Allergy Verified 10/25/24 10:32 - Past Medical History Past Medical History: Yes Neurological History: No Pertinent History ENT History: No Pertinent History Cardiac History: High Cholesterol, Hypertension Respiratory History: No Pertinent History, Lung Cancer, Sleep Apnea Endocrine Medical History: No Pertinent History Musculoskelatal History: Arthritis GI Medical History: No Pertinent History History: No Pertinent History Pyscho-Social History: No Pertinent History Male Reproductive Disorders: Prostate Problems Comment: left hydrocele - Past Surgical History Past Surgical History: Yes Neuro Surgical History: No Pertinent History Cardiac History: No Pertinent History Respiratory Surgery: No Pertinent History GI Surgical History: Appendectomy Genitourinary Surgical Hx: No Pertinent History Musculskeletal Surgical Hx: Other Male Surgical History: No Pertinent History Other Surgical History: BACK SURGERY, hip replacement (left), LUNG NODULES REMOVED FROM LEFT LUNG ON 11/27/23 Significant Family History: no pertinent family hx - Social History Smoking Status: Current every day smoker How long have you smoked: 61 YEARS Exposure to second hand smoke: No Alcohol: None Drug Use: none - Social Determinants of Health Will the patient participate in the screening: Yes Do you worry about a steady place to live?: No Do you have any problems with any of the following?: No known problems In the past 12 months,have you had to go without utilities?: No Have you or anyone in your house had to go without enough: No Transportation Issues: No Has anyone in your support network made you feel unsafe?: No Does the patient want assistance with any of the above?: No - Physical Exam Vital Signs: Vital Signs - 24 hr Temp Pulse Resp BP BP Pulse Ox 10/25/24 17:00 89 17 128/65 95 10/25/24 16:35 95 10/25/24 16:30 91 H 12 127/66 96 10/25/24 16:23 88 16 94 L 10/25/24 16:00 78 18 129/71 98 10/25/24 15:30 76 19 129/80 96 10/25/24 15:00 75 18 140/68 97 10/25/24 14:30 75 19 142/73 97 10/25/24 14:00 95 H 24 122/67 87 L 10/25/24 13:30 82 19 140/72 95 10/25/24 13:00 20 153/72 96 10/25/24 12:47 83 16 152/71 97 10/25/24 12:00 76 22 124/64 96 10/25/24 11:30 76 25 H 115/71 97 10/25/24 11:11 84 20 94 L 10/25/24 11:01 81 15 94/51 96 02/01/25 10:35 98.0 F 91 H 22 191/109 94 L 10/25/24 10:33 84 17 191/109 95 Results - Labs Lab/Micro Results: Lab Results-Last 24 Hours 10/25/24 10/25/24 10/25/24 Range/Units 10:40 10:40 10:40 WBC 26.8 H* (4.23-9.07) x10^3/uL RBC 3.60 L (4.63-6.08) x10^6/uL Hgb 11.4 L (13.7-17.5) g/dL Hct 34.5 L (40.1-51.0) % MCV 95.8 H (79.0-92.2) fL MCH 31.7 (25.7-32.2) pg MCHC 33.0 (32.3-36.5) g/dL RDW 13.3 (11.6-14.4) % Plt Count 363 H (163-337) x10^3/uL MPV 9.1 L (9.4-12.4) fL Segmented Neutrophils 88 H (34.0-67.9) % Band Neutrophils 1 (0.0-2.0) % Lymphocytes (Manual) 4 L (21.8-53.1) % Monocytes (Manual) 6 (5.3-12.2) % Atypical Lymphocytes 1 % Platelet Estimate NORMAL (NORMAL) RBC Morphology ABNORMAL Anisocytosis 1+ D-Dimer (0.0-0.50) mg/L Sodium 138 (135-145) mmol/L Potassium 4.3 (3.5-5.1) mmol/L Chloride 102 (98-107) mmol/L Carbon Dioxide 24 (22-30) mmol/L Anion Gap 16.2 H (5-15) MEQ/L BUN 32 H (9-20) mg/dL Creatinine 0.75 (0.66-1.25) mg/dL Estimated GFR 93.5 ML/MIN Glucose 108 H (74-106) mg/dL Calcium 9.6 (8.4-10.2) mg/dL Total Bilirubin 0.50 (0.2-1.3) mg/dL AST 65 H (17-59) U/L ALT 70 H (0-50) U/L Alkaline Phosphatase 151 H (38-126) U/L Troponin I < 0.012 (0.000-0.033) ng/mL NT-Pro-B Natriuret Pep 386 (<300) pg/mL Serum Total Protein 6.6 (6.3-8.2) g/dL Albumin 3.8 (3.5-5.0) g/dL Amylase 39 (30-110) U/L Lipase 23 (23-300) U/L Urine Color (Yellow) Urine Appearance (Clear) Urine pH (4.6-8.0) Ur Specific [place] (1.005-1.030) Urine Protein (Negative) Urine Glucose (UA) (Negative) mg/dL Urine Ketones (Negative) Urine Blood (Negative) Urine Nitrite (Negative) Urine Bilirubin (Negative) Urine Urobilinogen (0.2) mg/dL Ur Leukocyte Esterase (Negative) U Hyaline Cast (Auto) (0-2) /LPF Urine Microscopic RBC (0-5) /HPF Urine Microscopic WBC (0-5) /HPF Ur Epithelial Cells (None Seen) /HPF Urine Bacteria (None Seen) /HPF Urine Culture Reflexed (NO) Influenza Type A Ag (NEGATIVE) Influenza Type B Ag (NEGATIVE) RSV (PCR) (NEGATIVE) SARS-CoV-2 (PCR) (NEGATIVE) 10/25/24 10/25/24 10/25/24 Range/Units 10:40 10:57 11:32 WBC (4.23-9.07) x10^3/uL RBC (4.63-6.08) x10^6/uL Hgb (13.7-17.5) g/dL Hct (40.1-51.0) % MCV (79.0-92.2) fL MCH (25.7-32.2) pg MCHC (32.3-36.5) g/dL RDW (11.6-14.4) % Plt Count (163-337) x10^3/uL MPV (9.4-12.4) fL Segmented Neutrophils (34.0-67.9) % Band Neutrophils (0.0-2.0) % Lymphocytes (Manual) (21.8-53.1) % Monocytes (Manual) (5.3-12.2) % Atypical Lymphocytes % Platelet Estimate (NORMAL) RBC Morphology Anisocytosis D-Dimer 0.97 H* (0.0-0.50) mg/L Sodium (135-145) mmol/L Potassium (3.5-5.1) mmol/L Chloride (98-107) mmol/L Carbon Dioxide (22-30) mmol/L Anion Gap (5-15) MEQ/L BUN (9-20) mg/dL Creatinine (0.66-1.25) mg/dL Estimated GFR ML/MIN Glucose (74-106) mg/dL Calcium (8.4-10.2) mg/dL Total Bilirubin (0.2-1.3) mg/dL AST (17-59) U/L ALT (0-50) U/L Alkaline Phosphatase (38-126) U/L Troponin I (0.000-0.033) ng/mL NT-Pro-B Natriuret Pep (<300) pg/mL Serum Total Protein (6.3-8.2) g/dL Albumin (3.5-5.0) g/dL Amylase (30-110) U/L Lipase (23-300) U/L Urine Color Dark Yellow (Yellow) Urine Appearance Clear (Clear) Urine pH 5.0 (4.6-8.0) Ur Specific [place] >=1.030 A (1.005-1.030) Urine Protein Negative (Negative) Urine Glucose (UA) Negative (Negative) mg/dL Urine Ketones Trace A (Negative) Urine Blood Negative (Negative) Urine Nitrite Negative (Negative) Urine Bilirubin Negative (Negative) Urine Urobilinogen 0.2 (0.2) mg/dL Ur Leukocyte Esterase Negative (Negative) U Hyaline Cast (Auto) 6-10 A (0-2) /LPF Urine Microscopic RBC 0-2 (0-5) /HPF Urine Microscopic WBC 0-2 (0-5) /HPF Ur Epithelial Cells None Seen (None Seen) /HPF Urine Bacteria None Seen (None Seen) /HPF Urine Culture Reflexed NO (NO) Influenza Type A Ag NEGATIVE (NEGATIVE) Influenza Type B Ag NEGATIVE (NEGATIVE) RSV (PCR) NEGATIVE (NEGATIVE) SARS-CoV-2 (PCR) NEGATIVE (NEGATIVE) 10/25/24 Range/Units 14:59 WBC (4.23-9.07) x10^3/uL RBC (4.63-6.08) x10^6/uL Hgb (13.7-17.5) g/dL Hct (40.1-51.0) % MCV (79.0-92.2) fL MCH (25.7-32.2) pg MCHC (32.3-36.5) g/dL RDW (11.6-14.4) % Plt Count (163-337) x10^3/uL MPV (9.4-12.4) fL Segmented Neutrophils (34.0-67.9) % Band Neutrophils (0.0-2.0) % Lymphocytes (Manual) (21.8-53.1) % Monocytes (Manual) (5.3-12.2) % Atypical Lymphocytes % Platelet Estimate (NORMAL) RBC Morphology Anisocytosis D-Dimer (0.0-0.50) mg/L Sodium (135-145) mmol/L Potassium (3.5-5.1) mmol/L Chloride (98-107) mmol/L Carbon Dioxide (22-30) mmol/L Anion Gap (5-15) MEQ/L BUN (9-20) mg/dL Creatinine (0.66-1.25) mg/dL Estimated GFR ML/MIN Glucose (74-106) mg/dL Calcium (8.4-10.2) mg/dL Total Bilirubin (0.2-1.3) mg/dL AST (17-59) U/L ALT (0-50) U/L Alkaline Phosphatase (38-126) U/L Troponin I < 0.012 (0.000-0.033) ng/mL NT-Pro-B Natriuret Pep (<300) pg/mL Serum Total Protein (6.3-8.2) g/dL Albumin (3.5-5.0) g/dL Amylase (30-110) U/L Lipase (23-300) U/L Urine Color (Yellow) Urine Appearance (Clear) Urine pH (4.6-8.0) Ur Specific [place] (1.005-1.030) Urine Protein (Negative) Urine Glucose (UA) (Negative) mg/dL Urine Ketones (Negative) Urine Blood (Negative) Urine Nitrite (Negative) Urine Bilirubin (Negative) Urine Urobilinogen (0.2) mg/dL Ur Leukocyte Esterase (Negative) U Hyaline Cast (Auto) (0-2) /LPF Urine Microscopic RBC (0-5) /HPF Urine Microscopic WBC (0-5) /HPF Ur Epithelial Cells (None Seen) /HPF Urine Bacteria (None Seen) /HPF Urine Culture Reflexed (NO) Influenza Type A Ag (NEGATIVE) Influenza Type B Ag (NEGATIVE) RSV (PCR) (NEGATIVE) SARS-CoV-2 (PCR) (NEGATIVE) - Radiology Impressions Radiology Exams & Impressions: Radiology Procedures Category Date Time Status CHEST 1 VIEW (PORTABLE) Stat Exams 10/25/24 10:42 Taken CHEST WITH CONTRAST [CT] Stat Exams 10/25/24 11:32 Completed - Other Procedures and Tests Respiratory Therapy 10/25/24 17:24 Oxygen Nasal Cannula 2 lpm Respiratory Therapy Consult ONCE Assessment/Plan (1) Pneumonia involving right lung Current Visit: Yes Status: Acute Assessment & Plan: - as seen on CT - Tele - Lactic acid - WBC 26.8 - IV antibiotics, steroids, advair, duonebs - BC x2 - Sputum culture - CT reviewed Code(s): J18.9 - PNEUMONIA, UNSPECIFIED ORGANISM (2) Abnormal CT scan, chest Current Visit: Yes Status: Acute Assessment & Plan: - Pulm consulted - TB GOLD, and TB skin test - Isolation for TB d/t Cavitary lesion - CTA chest: IMPRESSION: 1. No evidence of pulmonary embolism, 2. Decreased left lung volume with likely surgical sutures (could be left lobectomy, correlation with surgical history is needed) 3. Cavitary lesion ([id number]) in the upper part of the remaining left lung as well as parenchymal band/thickening. 4. Right upper and middle pulmonary ground glass opacities with interlobular septal thickening, giving crazy paving pattern, it could be alveolitis, alveolar proteniosis, or otherpattern of infection, clinical correlation and follow up is needed. 5. Mild Left pleural effusion. 6. Right hilar hypodense lesion measuring about [id number], could be elissa. 7. Mild pericardial effusion. Code(s): R93.89 - ABNORMAL FINDINGS ON DX IMAGING OF OTH BODY STRUCTURES (3) Pleural effusion Current Visit: Yes Status: Acute Assessment & Plan: - as seen on CT - Consider thoracentesis Sunday as we are unable to order on the weekends - Lasix 20mg daily IV Code(s): J90 - PLEURAL EFFUSION, NOT ELSEWHERE CLASSIFIED (4) S/P lobectomy of lung Current Visit: Yes Status: Acute Assessment & Plan: - adds to complexity Code(s): Z90.2 - ACQUIRED ABSENCE OF LUNG [PART OF] (5) Shortness of breath Current Visit: No Status: Resolved Assessment & Plan: - 2:2 above dx's Code(s): R06.02 - SHORTNESS OF BREATH (6) Chest pain Current Visit: No Status: Acute Assessment & Plan: - Trops x2 negative - Trend labs - EKG - Tele - Echo Code(s): R07.9 - CHEST PAIN, UNSPECIFIED (7) Smoker Current Visit: No Status: Chronic Assessment & Plan: - advised cessation - nicotine patch Code(s): F17.200 - NICOTINE DEPENDENCE, UNSPECIFIED, UNCOMPLICATED (8) Leukocytosis Current Visit: No Status: Acute Assessment & Plan: - 2:2 pneumonia and recent surgery 4- WBC 26.8 - Sputum and BC x2 pending - IV antibiotics Code(s): D72.829 - ELEVATED WHITE BLOOD CELL COUNT, UNSPECIFIED (9) Elevated d-dimer Current Visit: Yes Status: Acute Assessment & Plan: - CT neg for PE - Likely elevated 2:2 recent surgery. Code(s): R79.89 - OTHER SPECIFIED ABNORMAL FINDINGS OF BLOOD CHEMISTRY (10) Pericardial effusion Current Visit: Yes Status: Acute Assessment & Plan: - Mild pericardial effusion seen on CT - Echo VTE: SCD's PPI: Next of KIN: D/C plan: 3-4 days- or pending Pulm recs Code status: Full Code(s): I31.39 - OTHER PERICARDIAL EFFUSION (NONINFLAMMATORY) Telemedicine Encounter - Telemedicine Encounter Telemedicine Encounter: "The entirety of this encounter was performed via Telemedicine" This visit was performed using real-time audio and video connection between my location and thepatients locationwith the assistance of a surrogateat the patients location. Written or verbal consent was obtained from the patient/guardian to perform this visit [facility] technology. Any patient questions regarding the telemedicine interaction were answered.
--- NOTE | 2024-10-25 20:35 | XRAY ---
Indication: Chest pain. Comparison: October, Portable chest demonstrates new diffuse right lung airspace disease without consolidation/large effusion. Interval left upper lobectomy with left lung volume loss. Heart not enlarged. Bony thorax intact again with osteopenia and degenerative changes.
[2024-10-25] MEDS: Aplisol ID ONE (20:51)
[2024-10-25] MEDS ORDERED: Sodium Chloride 100ML MINI-BAG PLUS 100 ML IV ONE (21:45)
[2024-10-25] MEDS ORDERED: PIPERACILLIN/TAZOBACTAM IV ONE (21:45)
[2024-10-25] MEDS: solu-MEDROL 40 MG, Sterile H2O 10 ml 1 ML IV SCH (22:01)
[2024-10-25] MEDS: celeBREX 100 MG PO SCH (22:01)
[2024-10-25] MEDS: Flomax 0.4 MG PO SCH (22:02)
[2024-10-25] MEDS: NORCO 7.5/325 MG TAB PO PRN (22:02)
[2024-10-25] MEDS: NORVASC 5 MG PO SCH (22:02)
[2024-10-25] MEDS: ZOCOR 20MG PO SCH (22:02)
[2024-10-25] MEDS: NICODERM CQ 14 MG TOP SCH (22:11)
[2024-10-25] MEDS: NEURONTIN PO SCH (23:43)
[2024-10-26] MEDS: DUONEB 0.5-3 MG/3 ml Neb IH PRN (00:20)
[2024-10-26] MEDS: PIPERACILLIN/TAZOBACTAM 4.5 GM in Sodium Chloride 100ML MINI-BAG PLUS 100 ML IV SCH ×2 (00:22→11:47)
[2024-10-26] MEDS: TYLENOL EXTRA STRENGTH 500 MG PO SCH (00:22)
[2024-10-26] MEDS: Mucinex 600MG ER Tabs PO SCH (00:23)
[2024-10-26] MEDS: TYLENOL 325 MG PO ONE (00:23)
[2024-10-26] MEDS: Advair Hfa 115/21 Common canister IH SCH (01:35)
[2024-10-26] MEDS ORDERED: solu-MEDROL ONE (06:18)
[2024-10-26] MEDS ORDERED: PIPERACILLIN/TAZOBACTAM IV ONE (06:19)
[2024-10-26] MEDS ORDERED: Sodium Chloride 100ML MINI-BAG PLUS 100 ML IV ONE (06:20)
[2024-10-26] MEDS: FLUTICASONE-SALMETEROL 250-50 IH SCH (07:33)
[2024-10-26] MEDS ORDERED: TYLENOL EXTRA STRENGTH 500 MG PO SCH (08:30)
[2024-10-26 08:41] LABS: Hematocrit 35.9 % (40.1-51.0); Hemoglobin 11.8 g/dL (13.7-17.5); Mean Cell Volume 96.2 fL (79.0-92.2); Mean Corpuscular Hemoglobin 31.6 pg (25.7-32.2); Mean Corpuscular Hgb Concent. 32.9 g/dL (32.3-36.5); Mean Platelet Volume 9.1 fL (9.4-12.4); Platelet Count 372 x10^3/uL (163-337); Red Blood Count 3.73 x10^6/uL (4.63-6.08); Red Cell Distribution Width 13.5 % (11.6-14.4)
[2024-10-26 08:47] LABS: White Blood Count 27.4 x10^3/uL (4.23-9.07)
[2024-10-26 08:52] LABS: ANION GAP 15.6 MEQ/L (5-15); BILIRUBIN,TOTAL 0.6 mg/dL (0.2-1.3); Calcium 9.4 mg/dL (8.4-10.2); Creatinine 1 0.75 mg/dL (0.66-1.25); EST GLOMERULAR FILTRATION RATE 93.5 ML/MIN; Potassium 4.2 mmol/L (3.5-5.1); Total Protein 7.4 g/dL (6.3-8.2)
[2024-10-26] MEDS ORDERED: CAPSU PO SCH (10:00)
[2024-10-26] MEDS ORDERED: EPA PO SCH (10:00)
[2024-10-26] MEDS ORDERED: NON-FORMULARY ITEM (Multivitamin [Multi-Vitamin Daily] 1 EACH Tablet) PO SCH (10:00)
[2024-10-26] MEDS ORDERED: OMEGA PO SCH (10:00)
[2024-10-26] MEDS ORDERED: NON-FORMULARY ITEM (Omeprazole 20 Mg [Prilosec 20 Mg] 20 MG Capsule.Dr) PO SCH (10:00)
[2024-10-26] MEDS: NEURONTIN PO SCH ×2 (10:00→22:55)
[2024-10-26] MEDS ORDERED: [UNRECOGNIZED DRUG - OTHER] PO SCH (10:00)
[2024-10-26] MEDS ORDERED: NON-FORMULARY ITEM (Lisinopril/Hydrochlorothiazide [Lisinopril-Hctz 10-12.5 Mg Tab] 1 EACH PO SCH (10:00)
[2024-10-26] MEDS ORDERED: DHA PO SCH (10:00)
[2024-10-26] MEDS ORDERED: VITAMIN D3 PO SCH (10:00)
[2024-10-26] MEDS: Zestril 10 MG PO SCH (10:01)
[2024-10-26] MEDS: THERAGRAN MULTIVITAMIN PO SCH (10:01)
[2024-10-26] MEDS: hydroDIURIL 25 MG PO SCH (10:02)
[2024-10-26] MEDS: FISH OIL 1,000 MG CAPSULE PO SCH (10:02)
[2024-10-26] MEDS: Protonix 40MG Tablet PO SCH (10:02)
[2024-10-26] MEDS: VITAMIN D PO SCH (10:03)
[2024-10-26] MEDS: Lasix 20 MG/2 ML IV SCH (10:03)
[2024-10-26 10:04] LABS: Lymphocytes 4 % (21.8-53.1); Monocyte 5 % (5.3-12.2); Neutrophils 91 % (34.0-67.9); Total Cells Counted 100
[2024-10-26] MEDS: Zithromax 500 MG/ 250 ML NaCl Premix 500 MG/250 ML IVPB IV SCH (10:04)
[2024-10-26 10:06] LABS: ANISOCYTOSIS 1+; Platelet Estimate NORMAL (NORMAL)
--- NOTE | 2024-10-26 11:02 | PCM.NOTE ---
Date and Time: 10/26/24 1101 Subjective Assessment: 10/25/24 is a 74 year old male with pmhx of HTN, hyperlipidemia, Lung cancer with recent lobectomy of left lung, sleep apnea, OA, BPH, GERD, and daily smoker. [facility]. He came to the ER today for shortness of breath and CP. Pt states he has been SOB since lobectomy of Left lung in November of 2023 but this week was worse. He saw Dr. Reece and was given an IM injection of steroids and antibiotics in office and sen home with antibiotics and steroids. Today sxs worsened and he was unable to walk across the room w/o being SOB. D-Dimer elevated 0.97. CT negative for PE. CT shows: decreased left lung volume with likely surgical sutures (could be left lobectomy, correlation with surgical history is needed). Cavitary lesion ([id number]) in the upper part of the remaining left lung as well as parenchymal band/thickening. Right upper and middle pulmonary ground glass opacities with interlobular septal thickening, giving crazy paving pattern, it could be alveolitis, alveolar proteniosis, or otherpattern of infection, clinical correlation and follow up is needed. Mild Left pleural effusion. Right hilar hypodense lesion measuring about [id number], could be elissa. Mild pericardial effusion. Pulmonology consulted. Pt placed in isolation for possible TB. TB gold and TB skin test ordered. TB GOLD test is a send out test here and takes some time to get back. WBC 26.8. He is on 3lNC 93%, baseline is room air. Trop x2 negative. Anion gap 16.2. Started IV antibiotics, steroids, duonebs, and Advair. 10/26/24 Pt sitting up in bed. He feels less SOB today but remains on 4lNC 94% and lung sounds coarse throughout. He was started on Mucinex last night and this was hel pful. TB skin test and TB gold test pending. Continue Lasix IV antibiotics, steroids, duonebs, and Advair. Echo scheduled for tomorrow. Repeat Lactic acid pending. Pulm consult pending. Pt denies CP, abd. pain, N/V/D. - Review of Systems Constitutional: Weakness, No Fever, No Chills Eyes: No Symptoms Ears, Nose, & Throat: No Symptoms Respiratory: Cough, Short Of Breath, Wheezing Cardiac: No Chest Pain, No Edema, No Syncope Abdominal/Gastrointestinal: No Abdominal Pain, No Nausea, No Vomiting, No Diarrhea Genitourinary Symptoms: No Dysuria Musculoskeletal: No Back Pain, No Neck Pain Skin: No Rash Neurological: No Dizziness, No Focal Weakness, No Sensory Changes Psychological: No Symptoms Endocrine: No Symptoms Hematologic/Lymphatic: No Symptoms Immunological/Allergic: No Symptoms Objective Exam General Appearance: mild distress, alert Neurologic Exam: alert, oriented x 3, cooperative, normal mood/affect, nml cerebellar function, sensation nml, motor weakness, No motor deficits Skin Exam: normal color, warm, dry Eye Exam: PERRL, EOMI, eyes nml inspection Ears, Nose, Throat Exam: normal ENT inspection, pharynx normal, moist mucous membranes Neck Exam: normal inspection, non-tender, supple, full range of motion Respiratory Exam: diminished breath sounds, crackles/rales, wheezing, No respiratory distress Cardiovascular Exam: regular rate/rhythm, normal heart sounds Gastrointestinal/Abdomen Exam: soft, No tenderness, No mass Extremity Exam: normal inspection, normal range of motion Back Exam: normal inspection, normal range of motion, No CVA tenderness, No vertebral tenderness Male Genitalia Exam: deferred Rectal Exam: deferred Objective Data Vital Signs: Vital Signs - 24 hr Temp Pulse Resp BP BP Pulse Ox 10/26/24 07:47 88 22 94 L 10/26/24 07:46 97.6 F 80 21 163/74 90 L 10/26/24 04:00 97.7 F 96 H 20 115/58 92 L 10/26/24 00:20 84 18 96 10/25/24 23:53 98.2 F 76 17 144/70 92 L 10/25/24 20:00 98.4 F 93 H 18 132/61 95 10/25/24 17:45 98.4 F 93 H 18 132/61 95 10/25/24 17:40 88 18 94 L 10/25/24 17:00 89 17 128/65 95 10/25/24 16:35 95 10/25/24 16:30 91 H 12 127/66 96 10/25/24 16:23 88 16 94 L 10/25/24 16:00 78 18 129/71 98 10/25/24 15:30 76 19 129/80 96 10/25/24 15:00 75 18 140/68 97 10/25/24 14:30 75 19 142/73 97 10/25/24 14:00 95 H 24 122/67 87 L 10/25/24 13:30 82 19 140/72 95 10/25/24 13:00 20 153/72 96 10/25/24 12:47 83 16 152/71 97 10/25/24 12:00 76 22 124/64 96 10/25/24 11:30 76 25 H 115/71 97 10/25/24 11:11 84 20 94 L Pain Assessment - Last Documented Pain Intensity 5 Pain Scale Used 0-10 Pain Scale Intake and Output: Intake & Output 10/23/24 10/24/24 10/25/24 10/26/24 11:59 11:59 11:59 11:59 Intake Total 900 Output Total 300 Balance 600 Weight 66.5 kg 66 kg Lab Results: Lab Results-Last 24 Hours 10/25/24 10/25/24 10/25/24 Range/Units 10:40 10:40 10:40 WBC 26.8 H* (4.23-9.07) x10^3/uL RBC 3.60 L (4.63-6.08) x10^6/uL Hgb 11.4 L (13.7-17.5) g/dL Hct 34.5 L (40.1-51.0) % MCV 95.8 H (79.0-92.2) fL MCH 31.7 (25.7-32.2) pg MCHC 33.0 (32.3-36.5) g/dL RDW 13.3 (11.6-14.4) % Plt Count 363 H (163-337) x10^3/uL MPV 9.1 L (9.4-12.4) fL Segmented Neutrophils 88 H (34.0-67.9) % Band Neutrophils 1 (0.0-2.0) % Lymphocytes (Manual) 4 L (21.8-53.1) % Monocytes (Manual) 6 (5.3-12.2) % Atypical Lymphocytes 1 % Platelet Estimate NORMAL (NORMAL) RBC Morphology ABNORMAL Anisocytosis 1+ D-Dimer (0.0-0.50) mg/L Sodium 138 (135-145) mmol/L Potassium 4.3 (3.5-5.1) mmol/L Chloride 102 (98-107) mmol/L Carbon Dioxide 24 (22-30) mmol/L Anion Gap 16.2 H (5-15) MEQ/L BUN 32 H (9-20) mg/dL Creatinine 0.75 (0.66-1.25) mg/dL Estimated GFR 93.5 ML/MIN Glucose 108 H (74-106) mg/dL Lactic Acid (0.4-2.0) Calcium 9.6 (8.4-10.2) mg/dL Total Bilirubin 0.50 (0.2-1.3) mg/dL AST 65 H (17-59) U/L ALT 70 H (0-50) U/L Alkaline Phosphatase 151 H (38-126) U/L Troponin I < 0.012 (0.000-0.033) ng/mL NT-Pro-B Natriuret Pep 386 (<300) pg/mL Serum Total Protein 6.6 (6.3-8.2) g/dL Albumin 3.8 (3.5-5.0) g/dL Amylase 39 (30-110) U/L Lipase 23 (23-300) U/L Urine Color (Yellow) Urine Appearance (Clear) Urine pH (4.6-8.0) Ur Specific Boone (1.005-1.030) Urine Protein (Negative) Urine Glucose (UA) (Negative) mg/dL Urine Ketones (Negative) Urine Blood (Negative) Urine Nitrite (Negative) Urine Bilirubin (Negative) Urine Urobilinogen (0.2) mg/dL Ur Leukocyte Esterase (Negative) U Hyaline Cast (Auto) (0-2) /LPF Urine Microscopic RBC (0-5) /HPF Urine Microscopic WBC (0-5) /HPF Ur Epithelial Cells (None Seen) /HPF Urine Bacteria (None Seen) /HPF Urine Culture Reflexed (NO) Influenza Type A Ag (NEGATIVE) Influenza Type B Ag (NEGATIVE) RSV (PCR) (NEGATIVE) SARS-CoV-2 (PCR) (NEGATIVE) 10/25/24 10/25/24 10/25/24 Range/Units 10:40 10:57 11:32 WBC (4.23-9.07) x10^3/uL RBC (4.63-6.08) x10^6/uL Hgb (13.7-17.5) g/dL Hct (40.1-51.0) % MCV (79.0-92.2) fL MCH (25.7-32.2) pg MCHC (32.3-36.5) g/dL RDW (11.6-14.4) % Plt Count (163-337) x10^3/uL MPV (9.4-12.4) fL Segmented Neutrophils (34.0-67.9) % Band Neutrophils (0.0-2.0) % Lymphocytes (Manual) (21.8-53.1) % Monocytes (Manual) (5.3-12.2) % Atypical Lymphocytes % Platelet Estimate (NORMAL) RBC Morphology Anisocytosis D-Dimer 0.97 H* (0.0-0.50) mg/L Sodium (135-145) mmol/L Potassium (3.5-5.1) mmol/L Chloride (98-107) mmol/L Carbon Dioxide (22-30) mmol/L Anion Gap (5-15) MEQ/L BUN (9-20) mg/dL Creatinine (0.66-1.25) mg/dL Estimated GFR ML/MIN Glucose (74-106) mg/dL Lactic Acid (0.4-2.0) Calcium (8.4-10.2) mg/dL Total Bilirubin (0.2-1.3) mg/dL AST (17-59) U/L ALT (0-50) U/L Alkaline Phosphatase (38-126) U/L Troponin I (0.000-0.033) ng/mL NT-Pro-B Natriuret Pep (<300) pg/mL Serum Total Protein (6.3-8.2) g/dL Albumin (3.5-5.0) g/dL Amylase (30-110) U/L Lipase (23-300) U/L Urine Color Dark Yellow (Yellow) Urine Appearance Clear (Clear) Urine pH 5.0 (4.6-8.0) Ur Specific Boone >=1.030 A (1.005-1.030) Urine Protein Negative (Negative) Urine Glucose (UA) Negative (Negative) mg/dL Urine Ketones Trace A (Negative) Urine Blood Negative (Negative) Urine Nitrite Negative (Negative) Urine Bilirubin Negative (Negative) Urine Urobilinogen 0.2 (0.2) mg/dL Ur Leukocyte Esterase Negative (Negative) U Hyaline Cast (Auto) 6-10 A (0-2) /LPF Urine Microscopic RBC 0-2 (0-5) /HPF Urine Microscopic WBC 0-2 (0-5) /HPF Ur Epithelial Cells None Seen (None Seen) /HPF Urine Bacteria None Seen (None Seen) /HPF Urine Culture Reflexed NO (NO) Influenza Type A Ag NEGATIVE (NEGATIVE) Influenza Type B Ag NEGATIVE (NEGATIVE) RSV (PCR) NEGATIVE (NEGATIVE) SARS-CoV-2 (PCR) NEGATIVE (NEGATIVE) 10/25/24 10/25/24 10/25/24 Range/Units 14:59 19:25 19:37 WBC (4.23-9.07) x10^3/uL RBC (4.63-6.08) x10^6/uL Hgb (13.7-17.5) g/dL Hct (40.1-51.0) % MCV (79.0-92.2) fL MCH (25.7-32.2) pg MCHC (32.3-36.5) g/dL RDW (11.6-14.4) % Plt Count (163-337) x10^3/uL MPV (9.4-12.4) fL Segmented Neutrophils (34.0-67.9) % Band Neutrophils (0.0-2.0) % Lymphocytes (Manual) (21.8-53.1) % Monocytes (Manual) (5.3-12.2) % Atypical Lymphocytes % Platelet Estimate (NORMAL) RBC Morphology Anisocytosis D-Dimer (0.0-0.50) mg/L Sodium (135-145) mmol/L Potassium (3.5-5.1) mmol/L Chloride (98-107) mmol/L Carbon Dioxide (22-30) mmol/L Anion Gap (5-15) MEQ/L BUN (9-20) mg/dL Creatinine (0.66-1.25) mg/dL Estimated GFR ML/MIN Glucose (74-106) mg/dL Lactic Acid 2.3 H (0.4-2.0) Calcium (8.4-10.2) mg/dL Total Bilirubin (0.2-1.3) mg/dL AST (17-59) U/L ALT (0-50) U/L Alkaline Phosphatase (38-126) U/L Troponin I < 0.012 < 0.012 (0.000-0.033) ng/mL NT-Pro-B Natriuret Pep (<300) pg/mL Serum Total Protein (6.3-8.2) g/dL Albumin (3.5-5.0) g/dL Amylase (30-110) U/L Lipase (23-300) U/L Urine Color (Yellow) Urine Appearance (Clear) Urine pH (4.6-8.0) Ur Specific Bo[place] (1.005-1.030) Urine Protein (Negative) Urine Glucose (UA) (Negative) mg/dL Urine Ketones (Negative) Urine Blood (Negative) Urine Nitrite (Negative) Urine Bilirubin (Negative) Urine Urobilinogen (0.2) mg/dL Ur Leukocyte Esterase (Negative) U Hyaline Cast (Auto) (0-2) /LPF Urine Microscopic RBC (0-5) /HPF Urine Microscopic WBC (0-5) /HPF Ur Epithelial Cells (None Seen) /HPF Urine Bacteria (None Seen) /HPF Urine Culture Reflexed (NO) Influenza Type A Ag (NEGATIVE) Influenza Type B Ag (NEGATIVE) RSV (PCR) (NEGATIVE) SARS-CoV-2 (PCR) (NEGATIVE) 10/26/24 10/26/24 Range/Units 08:34 08:34 WBC 27.4 H* (4.23-9.07) x10^3/uL RBC 3.73 L (4.63-6.08) x10^6/uL Hgb 11.8 L (13.7-17.5) g/dL Hct 35.9 L (40.1-51.0) % MCV 96.2 H (79.0-92.2) fL MCH 31.6 (25.7-32.2) pg MCHC 32.9 (32.3-36.5) g/dL RDW 13.5 (11.6-14.4) % Plt Count 372 H (163-337) x10^3/uL MPV 9.1 L (9.4-12.4) fL Segmented Neutrophils 91 H (34.0-67.9) % Band Neutrophils (0.0-2.0) % Lymphocytes (Manual) 4 L (21.8-53.1) % Monocytes (Manual) 5 L (5.3-12.2) % Atypical Lymphocytes % Platelet Estimate NORMAL (NORMAL) RBC Morphology ABNORMAL Anisocytosis 1+ D-Dimer (0.0-0.50) mg/L Sodium 140 (135-145) mmol/L Potassium 4.2 (3.5-5.1) mmol/L Chloride 102 (98-107) mmol/L Carbon Dioxide 27 (22-30) mmol/L Anion Gap 15.6 H (5-15) MEQ/L BUN 31 H (9-20) mg/dL Creatinine 0.75 (0.66-1.25) mg/dL Estimated GFR 93.5 ML/MIN Glucose 132 H (74-106) mg/dL Lactic Acid (0.4-2.0) Calcium 9.4 (8.4-10.2) mg/dL Total Bilirubin 0.60 (0.2-1.3) mg/dL AST 41 (17-59) U/L ALT 67 H (0-50) U/L Alkaline Phosphatase 153 H (38-126) U/L Troponin I (0.000-0.033) ng/mL NT-Pro-B Natriuret Pep (<300) pg/mL Serum Total Protein 7.4 (6.3-8.2) g/dL Albumin 4.0 (3.5-5.0) g/dL Amylase (30-110) U/L Lipase (23-300) U/L Urine Color (Yellow) Urine Appearance (Clear) Urine pH (4.6-8.0) Ur Specific [place]one (1.005-1.030) Urine Protein (Negative) Urine Glucose (UA) (Negative) mg/dL Urine Ketones (Negative) Urine Blood (Negative) Urine Nitrite (Negative) Urine Bilirubin (Negative) Urine Urobilinogen (0.2) mg/dL Ur Leukocyte Esterase (Negative) U Hyaline Cast (Auto) (0-2) /LPF Urine Microscopic RBC (0-5) /HPF Urine Microscopic WBC (0-5) /HPF Ur Epithelial Cells (None Seen) /HPF Urine Bacteria (None Seen) /HPF Urine Culture Reflexed (NO) Influenza Type A Ag (NEGATIVE) Influenza Type B Ag (NEGATIVE) RSV (PCR) (NEGATIVE) SARS-CoV-2 (PCR) (NEGATIVE) Radiology Exams: Radiology Procedures Category Date Time Status CHEST 1 VIEW (PORTABLE) Stat Exams 10/25/24 10:42 Completed CHEST WITH CONTRAST [CT] Stat Exams 10/25/24 11:32 Completed ECHO W/2D AND DOPPLER [US] Routine Exams 10/27/24 08:00 Ordered Assessment/Plan (1) Pneumonia involving right lung Current Visit: Yes Status: Acute Code(s): J18.9 - PNEUMONIA, UNSPECIFIED ORGANISM (2) Abnormal CT scan, chest Current Visit: Yes Status: Acute Code(s): R93.89 - ABNORMAL FINDINGS ON DX IMAGING OF OTH BODY STRUCTURES (3) Pleural effusion Current Visit: Yes Status: Acute Code(s): J90 - PLEURAL EFFUSION, NOT ELSEWHERE CLASSIFIED (4) S/P lobectomy of lung Current Visit: Yes Status: Acute Code(s): Z90.2 - ACQUIRED ABSENCE OF LUNG [PART OF] (5) Shortness of breath Current Visit: No Status: Resolved Code(s): R06.02 - SHORTNESS OF BREATH (6) Chest pain Current Visit: No Status: Acute Code(s): R07.9 - CHEST PAIN, UNSPECIFIED (7) Smoker Current Visit: No Status: Chronic Code(s): F17.200 - NICOTINE DEPENDENCE, UNSPECIFIED, UNCOMPLICATED (8) Leukocytosis Current Visit: No Status: Acute Code(s): D72.829 - ELEVATED WHITE BLOOD CELL COUNT, UNSPECIFIED (9) Elevated d-dimer Current Visit: Yes Status: Acute Code(s): R79.89 - OTHER SPECIFIED ABNORMAL FINDINGS OF BLOOD CHEMISTRY (10) Pericardial effusion Current Visit: Yes Status: Acute Assessment & Plan: (1) Pneumonia involving right lung Current Visit: Yes Status: Acute Assessment & Plan: - as seen on CT - Tele - Lactic acid - WBC 26.8 - IV antibiotics, steroids, advair, duonebs - BC x2 - Sputum culture - CT reviewed 10/26 - 4lNC- Baseline RA - WBC 27.4 - BC x2 pending - Sputum culture pending - Pulm consult pending Code(s): J18.9 - PNEUMONIA, UNSPECIFIED ORGANISM (2) Abnormal CT scan, chest Current Visit: Yes Status: Acute Assessment & Plan: - Pulm consulted - TB GOLD, and TB skin test - Isolation for TB d/t Cavitary lesion - CTA chest: IMPRESSION: 1. No evidence of pulmonary embolism, 2. Decreased left lung volume with likely surgical sutures (could be left lobectomy, correlation with surgical history is needed) 3. Cavitary lesion ([id number]) in the upper part of the remaining left lung as well as parenchymal band/thickening. 4. Right upper and middle pulmonary ground glass opacities with interlobular septal thickening, giving crazy paving pattern, it could be alveolitis, alveolar proteniosis, or otherpattern of infection, clinical correlation and follow up is needed. 5. Mild Left pleural effusion. 6. Right hilar hypodense lesion measuring about [id number], could be elissa. 7. Mild pericardial effusion. Code(s): R93.89 - ABNORMAL FINDINGS ON DX IMAGING OF OTH BODY STRUCTURES (3) Pleural effusion Current Visit: Yes Status: Acute Assessment & Plan: - as seen on CT - Consider thoracentesis Sunday as we are unable to order on the s - Lasix 20mg daily IV Code(s): J90 - PLEURAL EFFUSION, NOT ELSEWHERE CLASSIFIED (4) S/P lobectomy of lung Current Visit: Yes Status: Acute Assessment & Plan: - adds to complexity Code(s): Z90.2 - ACQUIRED ABSENCE OF LUNG [PART OF] (5) Shortness of breath Current Visit: No Status: Resolved Assessment & Plan: - 2:2 above dx's Code(s): R06.02 - SHORTNESS OF BREATH (6) Chest pain Current Visit: No Status: Acute Assessment & Plan: - Trops x3 negative - Trend labs - EKG - Tele - Echo- Sunday - likely 2:2 pneumonia Code(s): R07.9 - CHEST PAIN, UNSPECIFIED (7) Smoker Current Visit: No Status: Chronic Assessment & Plan: - advised cessation - nicotine patch Code(s): F17.200 - NICOTINE DEPENDENCE, UNSPECIFIED, UNCOMPLICATED (8) Leukocytosis Current Visit: No Status: Acute Assessment & Plan: - 2:2 pneumonia and recent surgery 4- WBC 26.8 - Sputum and BC x2 pending - IV antibiotics Code(s): D72.829 - ELEVATED WHITE BLOOD CELL COUNT, UNSPECIFIED (9) Elevated d-dimer Current Visit: Yes Status: Acute Assessment & Plan: - CT neg for PE - Likely elevated 2:2 recent surgery. Code(s): R79.89 - OTHER SPECIFIED ABNORMAL FINDINGS OF BLOOD CHEMISTRY (10) Pericardial effusion Current Visit: Yes Status: Acute Assessment & Plan: - Mild pericardial effusion seen on CT - Echo VTE: SCD's PPI: Protonix Next of KIN: D/C plan: 3-4 days- or pending Pulm recs Code status: Full Code(s): I31.39 - OTHER PERICARDIAL EFFUSION (NONINFLAMMATORY) Code(s): I31.39 - OTHER PERICARDIAL EFFUSION (NONINFLAMMATORY)
[2024-10-26] MEDS: HALLS COUGH DROPS 5.4 MG MM PRN (17:17)
[2024-10-26] MEDS: Artificial Tears 15 ML OP PRN (17:24)
[2024-10-27 05:13] LABS: Hemoglobin 10.7 g/dL (13.7-17.5); Mean Cell Volume 97.3 fL (79.0-92.2); Mean Corpuscular Hemoglobin 31.6 pg (25.7-32.2); Mean Corpuscular Hgb Concent. 32.4 g/dL (32.3-36.5); Mean Platelet Volume 9.2 fL (9.4-12.4); Platelet Count 327 x10^3/uL (163-337); Red Blood Count 3.39 x10^6/uL (4.63-6.08); Red Cell Distribution Width 13.4 % (11.6-14.4)
[2024-10-27 05:18] LABS: White Blood Count 27.1 x10^3/uL (4.23-9.07)
--- NOTE | 2024-10-27 05:31 | PCM.NOTE ---
Date and Time: 10/27/24 0527 Subjective Assessment: is a 74 year old male with pmhx of HTN, hyperlipidemia, Lung cancer with recent lobectomy of left lung, sleep apnea, OA, BPH, GERD, and daily smoker. [facility] He came to the ER 10/25/24 with complaints of progressive shortness of breath and CP. Pt states he has been SOB since lobectomy of Left lung in November of 2023 but this week was worse. He saw Dr. Reece and was given an IM injection of steroids and antibiotics in office and sent home with antibiotics and steroids. Symptoms did not improve and he reported difficulty with ambulation without becoming short of breath. Lab findings remarkable leukocytoisis, gap acidosis, elevated lactic acid,transaminitis, and elevated D- Dimer. CT negative for PE. CT demonstrates decreased left lung volume with likely surgical sutures (could be left lobectomy, correlation with surgical history is needed). Cavitary lesion ([id number]) in the upper part of the remaining left lung as well as parenchymal band/thickening. Right upper and middle pulmonary ground glass opacities with interlobular septal thickening, giving crazy paving pattern, it could be alveolitis, alveolar proteniosis, or other pattern of infection. Mild Left pleural effusion. Right hilar hypodense lesion measuring about [id number], could be elissa. Mild pericardial effusion. Pulmonology consulted. Pt placed in isolation for possible TB. TB gold and TB skin test ordered. TB GOLD test is a send out test here and takes some time to get back. Oxygen requirements at 3lNC - baseline is room air. Admit for pneumonia. IP treatment with Zosyn and azithromycin and solumedrol. 10/27/24: Met with patient bedside. Endorses improvement in dyspnea. Cough more productive with clear sputum. Patient now on 3L NC. Plan to continue IV abx and steroids. TB test pending. - Review of Systems Constitutional: Weakness Eyes: No Symptoms Ears, Nose, & Throat: No Symptoms Respiratory: Cough, Short Of Breath, Wheezing Cardiac: No Symptoms Abdominal/Gastrointestinal: No Symptoms Genitourinary Symptoms: No Symptoms Musculoskeletal: No Symptoms Skin: No Symptoms Neurological: No Symptoms Psychological: No Symptoms Endocrine: No Symptoms Hematologic/Lymphatic: No Symptoms Immunological/Allergic: No Symptoms Objective Exam General Appearance: no apparent distress Neurologic Exam: alert, oriented x 3, cooperative Skin Exam: normal color Eye Exam: PERRL Ears, Nose, Throat Exam: normal ENT inspection Respiratory Exam: crackles/rales, wheezing Cardiovascular Exam: regular rate/rhythm, normal heart sounds Gastrointestinal/Abdomen Exam: soft, normal bowel sounds Extremity Exam: normal inspection Back Exam: normal inspection Male Genitalia Exam: deferred Rectal Exam: deferred Objective Data Vital Signs: Vital Signs - 24 hr Temp Pulse Resp BP Pulse Ox 10/27/24 04:00 75 19 147/65 94 L 10/27/24 00:00 78 22 178/79 92 L 10/26/24 20:00 97.9 F 79 19 125/62 92 L 10/26/24 19:33 76 18 94 L 10/26/24 16:00 97.9 F 72 16 124/60 95 10/26/24 15:10 77 18 92 L 10/26/24 12:00 98.0 F 92 H 17 112/58 94 L 10/26/24 07:47 88 22 94 L 10/26/24 07:46 97.6 F 80 21 163/74 90 L Pain Assessment - Last Documented Pain Intensity 7 Pain Scale Used [facility] Intake and Output: Intake & Output 10/24/24 10/25/24 10/26/24 10/27/24 11:59 11:59 11:59 11:59 Intake Total 900 1282 Output Total 300 300 Balance 600 982 Weight 66.5 kg 66 kg Lab Results: Lab Results-Last 24 Hours 10/25/24 10/26/24 10/26/24 Range/Units 10:40 08:34 08:34 WBC 26.8 H* 27.4 H* (4.23-9.07) x10^3/uL RBC 3.60 L 3.73 L (4.63-6.08) x10^6/uL Hgb 11.4 L 11.8 L (13.7-17.5) g/dL Hct 34.5 L 35.9 L (40.1-51.0) % MCV 95.8 H 96.2 H (79.0-92.2) fL MCH 31.7 31.6 (25.7-32.2) pg MCHC 33.0 32.9 (32.3-36.5) g/dL RDW 13.3 13.5 (11.6-14.4) % Plt Count 363 H 372 H (163-337) x10^3/uL MPV 9.1 L 9.1 L (9.4-12.4) fL Segmented Neutrophils 88 H 91 H (34.0-67.9) % Band Neutrophils 1 (0.0-2.0) % Lymphocytes (Manual) 4 L 4 L (21.8-53.1) % Monocytes (Manual) 6 5 L (5.3-12.2) % Atypical Lymphocytes 1 % Platelet Estimate NORMAL NORMAL (NORMAL) RBC Morphology ABNORMAL ABNORMAL Anisocytosis 1+ 1+ Smear Path Review Pending Sodium 140 (135-145) mmol/L Potassium 4.2 (3.5-5.1) mmol/L Chloride 102 (98-107) mmol/L Carbon Dioxide 27 (22-30) mmol/L Anion Gap 15.6 H (5-15) MEQ/L BUN 31 H (9-20) mg/dL Creatinine 0.75 (0.66-1.25) mg/dL Estimated GFR 93.5 ML/MIN Glucose 132 H (74-106) mg/dL Lactic Acid (0.4-2.0) Calcium 9.4 (8.4-10.2) mg/dL Total Bilirubin 0.60 (0.2-1.3) mg/dL AST 41 (17-59) U/L ALT 67 H (0-50) U/L Alkaline Phosphatase 153 H (38-126) U/L Serum Total Protein 7.4 (6.3-8.2) g/dL Albumin 4.0 (3.5-5.0) g/dL 10/26/24 10/27/24 Range/Units 11:00 05:05 WBC 27.1 H* (4.23-9.07) x10^3/uL RBC 3.39 L (4.63-6.08) x10^6/uL Hgb 10.7 L (13.7-17.5) g/dL Hct 33.0 L (40.1-51.0) % MCV 97.3 H (79.0-92.2) fL MCH 31.6 (25.7-32.2) pg MCHC 32.4 (32.3-36.5) g/dL RDW 13.4 (11.6-14.4) % Plt Count 327 (163-337) x10^3/uL MPV 9.2 L (9.4-12.4) fL Segmented Neutrophils (34.0-67.9) % Band Neutrophils (0.0-2.0) % Lymphocytes (Manual) (21.8-53.1) % Monocytes (Manual) (5.3-12.2) % Atypical Lymphocytes % Platelet Estimate (NORMAL) RBC Morphology Anisocytosis Smear Path Review Sodium (135-145) mmol/L Potassium (3.5-5.1) mmol/L Chloride (98-107) mmol/L Carbon Dioxide (22-30) mmol/L Anion Gap (5-15) MEQ/L BUN (9-20) mg/dL Creatinine (0.66-1.25) mg/dL Estimated GFR ML/MIN Glucose (74-106) mg/dL Lactic Acid 1.5 (0.4-2.0) Calcium (8.4-10.2) mg/dL Total Bilirubin (0.2-1.3) mg/dL AST (17-59) U/L ALT (0-50) U/L Alkaline Phosphatase (38-126) U/L Serum Total Protein (6.3-8.2) g/dL Albumin (3.5-5.0) g/dL Radiology Exams: Radiology Procedures Category Date Time Status CHEST 1 VIEW (PORTABLE) Stat Exams 10/25/24 10:42 Completed CHEST WITH CONTRAST [CT] Stat Exams 10/25/24 11:32 Completed ECHO W/2D AND DOPPLER [US] Routine Exams 10/27/24 08:00 Ordered Assessment/Plan (1) Pneumonia involving right lung Current Visit: Yes Status: Acute Assessment & Plan: - CT reviewed showingdecreased left lung volume with likely surgical sutures (could be left lobectomy, correlation with surgical history is needed). Cavitary lesion ([id number]) in the upper part of the remaining left lung as well as parenchymal band/thickening. Right upper and middle pulmonary ground glass opacities with interlobular septal thickening, giving crazy paving pattern, it could be alveolitis, alveolar proteniosis, or other pattern of infection. Mild Left pleural effusion. Right hilar hypodense lesion measuring about [id number], could be elissa. Mild pericardial effusion. - Tele - Lactic acid now wnl -Continue Zosyn/Levaquin, steroids, advair, duonebs - dc azithromyci - BC x1 pre-mccallum with NGTD - lab did not collect second set of blood culture and Sputum culture pending - 4lNC- Baseline RA - [place]WBC reviewed at 27.1 -Afebrile -add procal Code(s): J18.9 - PNEUMONIA, UNSPECIFIED ORGANISM (2) Abnormal CT scan, chest Current Visit: Yes Status: Acute Assessment & Plan: - Pulm consulted - TB GOLD, and TB skin test - Isolation for TB d/t Cavitary lesion - CTA chest as stated above Code(s): R93.89 - ABNORMAL FINDINGS ON DX IMAGING OF OTH BODY STRUCTURES (3) Elevated d-dimer Current Visit: Yes Status: Acute Assessment & Plan: - CT neg for PE - Likely elevated 2:2 recent surgery. Code(s): R79.89 - OTHER SPECIFIED ABNORMAL FINDINGS OF BLOOD CHEMISTRY (4) Pericardial effusion Current Visit: Yes Status: Acute Assessment & Plan: - Mild pericardial effusion seen on CT - Echo Code(s): I31.39 - OTHER PERICARDIAL EFFUSION (NONINFLAMMATORY) (5) Pleural effusion Current Visit: Yes Status: Acute Assessment & Plan: - as seen on CT - Consider thoracentesis Sunday as we are unable to order on the weekends - Lasix 20mg daily IV Code(s): J90 - PLEURAL EFFUSION, NOT ELSEWHERE CLASSIFIED (6) S/P lobectomy of lung Current Visit: Yes Status: Acute Assessment & Plan: -noted -adds to complexity Code(s): Z90.2 - ACQUIRED ABSENCE OF LUNG [PART OF] (7) Chest pain Current Visit: No Status: Acute Assessment & Plan: - Trops x3 negative - EKG - Tele - Echo- Sunday - likely 2:2 pneumonia Code(s): R07.9 - CHEST PAIN, UNSPECIFIED (8) Leukocytosis Current Visit: No Status: Acute Assessment & Plan: - 2:2 pneumonia and recent surgery 4 -WBC reviewed 27.1 - Sputum pending - BC x1 pre-mccallum with ngtd -continue zosyn/levaquin - dc azithromycin Code(s): D72.829 - ELEVATED WHITE BLOOD CELL COUNT, UNSPECIFIED (9) Smoker Current Visit: No Status: Chronic Assessment & Plan: - advised cessation - nicotine patch Code(s): F17.200 - NICOTINE DEPENDENCE, UNSPECIFIED, UNCOMPLICATED (10) Shortness of breath Current Visit: No Status: Resolved Assessment & Plan: - 2:2 pneumonia see plan above VTE: SCD's PPI: Protonix Next of KIN: D/C plan: 3-4 days- or pending Pulm recs Code status: Full Code(s): R06.02 - SHORTNESS OF BREATH
[2024-10-27 05:40] LABS: ALBUMIN 3.6 g/dL (3.5-5.0); ANION GAP 13.3 MEQ/L (5-15); BILIRUBIN,TOTAL 0.4 mg/dL (0.2-1.3); Calcium 9.2 mg/dL (8.4-10.2); Creatinine 1 0.93 mg/dL (0.66-1.25); EST GLOMERULAR FILTRATION RATE 85.1 ML/MIN; Potassium 4.3 mmol/L (3.5-5.1); Total Protein 6.6 g/dL (6.3-8.2)
[2024-10-27] MEDS ORDERED: solu-MEDROL ONE (06:21)
[2024-10-28 05:11] LABS: Hematocrit 33.7 % (40.1-51.0); Hemoglobin 10.9 g/dL (13.7-17.5); Mean Cell Volume 97.4 fL (79.0-92.2); Mean Corpuscular Hemoglobin 31.5 pg (25.7-32.2); Mean Corpuscular Hgb Concent. 32.3 g/dL (32.3-36.5); Mean Platelet Volume 9.3 fL (9.4-12.4); Platelet Count 353 x10^3/uL (163-337); Red Blood Count 3.46 x10^6/uL (4.63-6.08); Red Cell Distribution Width 13.6 % (11.6-14.4)
[2024-10-28 05:20] LABS: White Blood Count 25.3 x10^3/uL (4.23-9.07)
--- NOTE | 2024-10-28 05:29 | PCM.NOTE ---
Date and Time: 10/28/24 0528 Subjective Assessment: is a 74 year old male with pmhx of HTN, hyperlipidemia, Lung cancer with recent lobectomy of left lung, sleep apnea, OA, BPH, GERD, and daily smoker. [facility] He came to the ER 10/25/24 with complaints of progressive shortness of breath and CP. Pt states he has been SOB since lobectomy of Left lung in November of 2023 but this week was worse. He saw Dr. Reece and was given an IM injection of steroids and antibiotics in office and sent home with antibiotics and steroids. Symptoms did not improve and he reported difficulty with ambulation without becoming short of breath. Lab findings remarkable leukocytoisis, gap acidosis, elevated lactic acid,transaminitis, and elevated D- Dimer. CT negative for PE. CT demonstrates decreased left lung volume with likely surgical sutures (could be left lobectomy, correlation with surgical history is needed). Cavitary lesion ([id number]) in the upper part of the remaining left lung as well as parenchymal band/thickening. Right upper and middle pulmonary ground glass opacities with interlobular septal thickening, giving crazy paving pattern, it could be alveolitis, alveolar proteniosis, or other pattern of infection. Mild Left pleural effusion. Right hilar hypodense lesion measuring about [id number], could be elissa. Mild pericardial effusion. Pulmonology consulted. Pt placed in isolation for possible TB. TB gold and TB skin test ordered. TB GOLD test is a send out test here and takes some time to get back. Oxygen requirements at 3lNC - baseline is room air. Admit for pneumonia. IP treatment with Zosyn and azithromycin and solumedrol. 10/27/24: Met with patient bedside. Endorses improvement in dyspnea. Cough more productive with clear sputum. Patient now on 3L NC. Plan to continue IV abx and steroids. TB test pending. 10/28/24: Met with patient bedside. Endorses continued improvement in cough and dyspnea. Oxygen requirements now at 2LNC. TB with indeterminate results. Skin TB test negative. Plan to continue abx and steroids. Denies fever,cp, abdominal pain, GEE, dizziness, N/V/D. - Review of Systems Constitutional: No Symptoms Eyes: No Symptoms Ears, Nose, & Throat: No Symptoms Respiratory: Cough, Short Of Breath Cardiac: No Symptoms Abdominal/Gastrointestinal: No Symptoms Genitourinary Symptoms: No Symptoms Musculoskeletal: No Symptoms Skin: No Symptoms Neurological: No Symptoms Psychological: No Symptoms Endocrine: No Symptoms Hematologic/Lymphatic: No Symptoms Immunological/Allergic: No Symptoms Objective Exam General Appearance: no apparent distress Neurologic Exam: alert, oriented x 3, cooperative Skin Exam: normal color Eye Exam: PERRL Ears, Nose, Throat Exam: normal ENT inspection Neck Exam: normal inspection Respiratory Exam: diminished breath sounds, crackles/rales Cardiovascular Exam: regular rate/rhythm, normal heart sounds Gastrointestinal/Abdomen Exam: soft, normal bowel sounds Extremity Exam: normal inspection Back Exam: normal inspection Male Genitalia Exam: deferred Rectal Exam: deferred Objective Data Vital Signs: Vital Signs - 24 hr Temp Pulse Resp BP Pulse Ox 10/28/24 04:00 98.2 F 70 20 132/60 94 L 10/28/24 00:00 98.0 F 74 16 132/60 92 L 10/27/24 20:00 98.2 F 79 20 135/62 90 L 10/27/24 16:00 98.3 F 90 18 135/62 92 L 10/27/24 13:15 80 20 95 10/27/24 12:00 98.4 F 80 18 131/61 93 L 10/27/24 08:00 97.8 F 83 18 130/60 94 L 10/27/24 07:53 74 18 94 L Pain Assessment - Last Documented Pain Intensity 0 Pain Scale Used 0-10 Pain Scale Intake and Output: Intake & Output 10/25/24 10/26/24 10/27/24 10/28/24 11:59 11:59 11:59 11:59 Intake Total 900 1402 760 Output Total 300 500 700 Balance 600 902 60 Weight 66.5 kg 66 kg Lab Results: Lab Results-Last 24 Hours 10/27/24 10/27/24 10/28/24 Range/Units 05:05 05:05 04:32 WBC 25.3 H* (4.23-9.07) x10^3/uL RBC 3.46 L (4.63-6.08) x10^6/uL Hgb 10.9 L (13.7-17.5) g/dL Hct 33.7 L (40.1-51.0) % MCV 97.4 H (79.0-92.2) fL MCH 31.5 (25.7-32.2) pg MCHC 32.3 (32.3-36.5) g/dL RDW 13.6 (11.6-14.4) % Plt Count 353 H (163-337) x10^3/uL MPV 9.3 L (9.4-12.4) fL Sodium 141 (135-145) mmol/L Potassium 4.3 (3.5-5.1) mmol/L Chloride 103 (98-107) mmol/L Carbon Dioxide 29 (22-30) mmol/L Anion Gap 13.3 (5-15) MEQ/L BUN 35 H (9-20) mg/dL Creatinine 0.93 (0.66-1.25) mg/dL Estimated GFR 85.1 ML/MIN Glucose 149 H (74-106) mg/dL Calcium 9.2 (8.4-10.2) mg/dL Total Bilirubin 0.40 (0.2-1.3) mg/dL AST 41 (17-59) U/L ALT 77 H (0-50) U/L Alkaline Phosphatase 135 H (38-126) U/L Serum Total Protein 6.6 (6.3-8.2) g/dL Albumin 3.6 (3.5-5.0) g/dL Procalcitonin 0.091 H (0.030-0.080) ng/mL Radiology Exams: Radiology Procedures Category Date Time Status ECHO W/2D AND DOPPLER [US] Routine Exams 10/27/24 08:00 Taken Assessment/Plan (1) Pneumonia involving right lung Current Visit: Yes Status: Acute Assessment & Plan: - CT reviewed showingdecreased left lung volume with likely surgical sutures (could be left lobectomy, correlation with surgical history is needed). Cavitary lesion ([id number]) in the upper part of the remaining left lung as well as parenchymal band/thickening. Right upper and middle pulmonary ground glass opacities with interlobular septal thickening, giving crazy paving pattern, it c ould be alveolitis, alveolar proteniosis, or other pattern of infection. Mild Left pleural effusion. Right hilar hypodense lesion measuring about [id number], could be elissa. Mild pericardial effusion. - Tele - Lactic acid now wnl -Continue Zosyn/Levaquin, steroids, advair, duonebs - dc azithromyci - BC x1 pre-mccallum with NGTD - lab did not collect second set of blood culture and Sputum culture pending - 4lNC- Baseline RA - Pulm [place] -WBC reviewed at 27.1 -Afebrile -add procal 10/28/24 -Sputum cult with gram - ID -continue zosyn/levaquin -WBC reviewed at 25.3<27.1- trend -Blood cultures with NGTD x 1 as patient refused 2nd stick for 2nd set -continue steroids Code(s): J18.9 - PNEUMONIA, UNSPECIFIED ORGANISM (2) Abnormal CT scan, chest Current Visit: Yes Status: Acute Assessment & Plan: - Pulm consulted - TB GOLD, and TB skin test - Isolation for TB d/t Cavitary lesion - CTA chest as stated above 10/28: TB gold indeterminate - TB skin test negative Code(s): R93.89 - ABNORMAL FINDINGS ON DX IMAGING OF OTH BODY STRUCTURES (3) Elevated d-dimer Current Visit: Yes Status: Acute Assessment & Plan: - CT neg for PE - Likely elevated 2:2 recent surgery. Code(s): R79.89 - OTHER SPECIFIED ABNORMAL FINDINGS OF BLOOD CHEMISTRY (4) Pericardial effusion Current Visit: Yes Status: Acute Assessment & Plan: - Mild pericardial effusion seen on CT - Echo with ef 60-65% -no pericardial effusion noted Code(s): I31.39 - OTHER PERICARDIAL EFFUSION (NONINFLAMMATORY) (5) Pleural effusion Current Visit: Yes Status: Acute Assessment & Plan: - as seen on CT - Consider thoracentesis Sunday as we are unable to order on the s - Lasix 20mg daily IV 10/28: -repeat CXR 10/29/24 Code(s): J90 - PLEURAL EFFUSION, NOT ELSEWHERE CLASSIFIED (6) S/P lobectomy of lung Current Visit: Yes Status: Acute Assessment & Plan: -noted -adds to complexity Code(s): Z90.2 - ACQUIRED ABSENCE OF LUNG [PART OF] (7) Chest pain Current Visit: No Status: Acute Assessment & Plan: - Trops x3 negative - EKG - Tele - Echo- Sunday - likely 2:2 pneumonia : -resolved Code(s): R07.9 - CHEST PAIN, UNSPECIFIED (8) Leukocytosis Current Visit: No Status: Acute Assessment & Plan: - 2:2 pneumonia and recent surgery 4 -WBC reviewed improving at 25.3<27.1 - Sputum with gram negative ID - BC x1 pre-mccallum with ngtd -continue zosyn/levaquin - dc azithromycin Code(s): D72.829 - ELEVATED WHITE BLOOD CELL COUNT, UNSPECIFIED (9) Smoker Current Visit: No Status: Chronic Assessment & Plan: - advised cessation - nicotine patch Code(s): F17.200 - NICOTINE DEPENDENCE, UNSPECIFIED, UNCOMPLICATED (10) Shortness of breath Current Visit: No Status: Resolved Assessment & Plan: - 2:2 pneumonia see plan above VTE: SCD's PPI: Protonix Next of KIN: D/C plan: 3-4 days- or pending Pulm recs Code status: Full Code(s): J18.9 - PNEUMONIA, UNSPECIFIED ORGANISM (2) Abnormal CT scan, chest Current Visit: Yes Status: Acute Code(s): R93.89 - ABNORMAL FINDINGS ON DX IMAGING OF OTH BODY STRUCTURES (3) Elevated d-dimer Current Visit: Yes Status: Acute Code(s): R79.89 - OTHER SPECIFIED ABNORMAL FINDINGS OF BLOOD CHEMISTRY (4) Pericardial effusion Current Visit: Yes Status: Acute Code(s): I31.39 - OTHER PERICARDIAL EFFUSION (NONINFLAMMATORY) (5) Pleural effusion Current Visit: Yes Status: Acute Code(s): J90 - PLEURAL EFFUSION, NOT ELSEWHERE CLASSIFIED (6) S/P lobectomy of lung Current Visit: Yes Status: Acute Code(s): Z90.2 - ACQUIRED ABSENCE OF LUNG [PART OF] (7) Chest pain Current Visit: No Status: Acute Code(s): R07.9 - CHEST PAIN, UNSPECIFIED (8) Leukocytosis Current Visit: No Status: Acute Code(s): D72.829 - ELEVATED WHITE BLOOD CELL COUNT, UNSPECIFIED (9) Smoker Current Visit: No Status: Chronic Code(s): F17.200 - NICOTINE DEPENDENCE, UNSPECIFIED, UNCOMPLICATED (10) Shortness of breath Current Visit: No Status: Resolved Code(s): R06.02 - SHORTNESS OF BREATH
[2024-10-28 05:30] LABS: ALBUMIN 3.5 g/dL (3.5-5.0); ANION GAP 11.6 MEQ/L (5-15); BILIRUBIN,TOTAL 0.4 mg/dL (0.2-1.3); Calcium 9.2 mg/dL (8.4-10.2); Creatinine 1 0.7 mg/dL (0.66-1.25); EST GLOMERULAR FILTRATION RATE 95.5 ML/MIN; Potassium 4.3 mmol/L (3.5-5.1); Total Protein 6.6 g/dL (6.3-8.2)
[2024-10-28 07:24] LABS: BAND 1 % (0.0-2.0); Lymphocytes 3 % (21.8-53.1); Monocyte 3 % (5.3-12.2); Neutrophils 93 % (34.0-67.9); Platelet Estimate NORMAL (NORMAL); Total Cells Counted 100
[2024-10-28 07:59] LABS: QuantiFERON-TB Gold Plus Indeterminate (Negative)
[2024-10-28] MEDS: LEVOFLOXACIN 750MG/150ML D5W 750 MG/150 ML BAG IV SCH (09:46)
--- NOTE | 2024-10-29 05:23 | PCM.NOTE ---
Date and Time: 10/29/24 0522 Subjective Assessment: is a 74 year old male with pmhx of HTN, hyperlipidemia, Lung cancer with recent lobectomy of left lung, sleep apnea, OA, BPH, GERD, and daily smoker. [facility] He came to the ER 10/25/24 with complaints of progressive shortness of breath and CP. Pt states he has been SOB since lobectomy of Left lung in November of 2023 but this week was worse. He saw Dr. Reece and was given an IM injection of steroids and antibiotics in office and sent home with antibiotics and steroids. Symptoms did not improve and he reported difficulty with ambulation without becoming short of breath. Lab findings remarkable leukocytoisis, gap acidosis, elevated lactic acid,transaminitis, and elevated D- Dimer. CT negative for PE. CT demonstrates decreased left lung volume with likely surgical sutures (could be left lobectomy, correlation with surgical history is needed). Cavitary lesion ([id number]) in the upper part of the remaining left lung as well as parenchymal band/thickening. Right upper and middle pulmonary ground glass opacities with interlobular septal thickening, giving crazy paving pattern, it could be alveolitis, alveolar proteniosis, or other pattern of infection. Mild Left pleural effusion. Right hilar hypodense lesion measuring about [id number], could be elissa. Mild pericardial effusion. Pulmonology consulted. Pt placed in isolation for possible TB. TB gold and TB skin test ordered. TB GOLD test is a send out test here and takes some time to get back. Oxygen requirements at 3lNC - baseline is room air. Admit for pneumonia. IP treatment with Zosyn and azithromycin and solumedrol. 10/27/24: Met with patient bedside. Endorses improvement in dyspnea. Cough more productive with clear sputum. Patient now on 3L NC. Plan to continue IV abx and steroids. TB test pending. 10/28/24: Met with patient bedside. Endorses continued improvement in cough and dyspnea. Oxygen requirements now at 2LNC. TB with indeterminate results. Skin TB test negative. Plan to continue abx and steroids. Denies fever,cp, abdominal pain, GEE, dizziness, N/V/D. 10/29/24: No overnight events noted. Dyspnea and cough improved. Sputum culture with serratia marescens- sensitive to levaquin. Lung sounds with improved aeration. Exp wheezing in bases- improved. WBC count improving. Most likely can discharge tomorrow if he continues to improve. - Review of Systems Constitutional: Weakness Eyes: No Symptoms Ears, Nose, & Throat: No Symptoms Respiratory: Cough, Short Of Breath, Wheezing Cardiac: No Symptoms Abdominal/Gastrointestinal: No Symptoms Genitourinary Symptoms: No Symptoms Musculoskeletal: No Symptoms Skin: No Symptoms Neurological: No Symptoms Psychological: No Symptoms Endocrine: No Symptoms Hematologic/Lymphatic: No Symptoms Immunological/Allergic: No Symptoms Objective Exam General Appearance: no apparent distress Neurologic Exam: alert, oriented x 3, cooperative Skin Exam: normal color Eye Exam: PERRL Ears, Nose, Throat Exam: normal ENT inspection Neck Exam: normal inspection Respiratory Exam: diminished breath sounds, wheezing Cardiovascular Exam: regular rate/rhythm, normal heart sounds Extremity Exam: normal inspection Back Exam: normal inspection Male Genitalia Exam: deferred Rectal Exam: deferred Objective Data Vital Signs: Vital Signs - 24 hr Temp Pulse Resp BP Pulse Ox 10/29/24 04:00 97.1 F 70 16 175/80 97 10/29/24 00:00 97.9 F 62 17 189/79 10/28/24 20:00 97.9 F 70 16 152/95 97 10/28/24 18:58 68 16 97 10/28/24 16:00 97.6 F 69 16 134/63 93 L 10/28/24 12:00 98.1 F 68 16 118/62 95 10/28/24 08:25 76 20 93 L 10/28/24 07:58 98.7 F 75 20 152/68 93 L 10/28/24 06:44 94 L Pain Assessment - Last Documented Pain Intensity 7 Pain Scale Used [facility] Intake and Output: Intake & Output 10/26/24 10/27/24 10/28/24 10/29/24 11:59 11:59 11:59 11:59 Intake Total 900 1402 1480 890 Output Total 300 240 343 4059 Balance 600 902 580 -910 Weight 66 kg Lab Results: Lab Results-Last 24 Hours 10/25/24 10/25/24 10/28/24 Range/Units 10:40 19:37 04:32 Segmented Neutrophils 93 H (34.0-67.9) % Band Neutrophils 1 (0.0-2.0) % Lymphocytes (Manual) 3 L (21.8-53.1) % Monocytes (Manual) 3 L (5.3-12.2) % Platelet Estimate NORMAL (NORMAL) RBC Morphology NORMAL Smear Path Review Sodium (135-145) mmol/L Potassium (3.5-5.1) mmol/L Chloride (98-107) mmol/L Carbon Dioxide (22-30) mmol/L Anion Gap (5-15) MEQ/L BUN (9-20) mg/dL Creatinine (0.66-1.25) mg/dL Estimated GFR ML/MIN Glucose (74-106) mg/dL Calcium (8.4-10.2) mg/dL Total Bilirubin (0.2-1.3) mg/dL AST (17-59) U/L ALT (0-50) U/L Alkaline Phosphatase (38-126) U/L Serum Total Protein (6.3-8.2) g/dL Albumin (3.5-5.0) g/dL TB (QFT) Incubation TB Test (QFT) Nil 0.00 (.) IU/mL TB Test (QFT) Mitogen 0.16 (.) IU/mL TB Test (QFT) Ag 1 0.00 (.) IU/mL TB Test (QFT) Ag 2 0.00 (.) IU/mL TB Test (QFT) Indeterminate H (Negative) TB Test (QFT) Criteria Comment (.) 10/28/24 Range/Units 04:32 Segmented Neutrophils (34.0-67.9) % Band Neutrophils (0.0-2.0) % Lymphocytes (Manual) (21.8-53.1) % Monocytes (Manual) (5.3-12.2) % Platelet Estimate (NORMAL) RBC Morphology Smear Path Review Sodium 141 (135-145) mmol/L Potassium 4.3 (3.5-5.1) mmol/L Chloride 102 (98-107) mmol/L Carbon Dioxide 32 H (22-30) mmol/L Anion Gap 11.6 (5-15) MEQ/L BUN 30 H (9-20) mg/dL Creatinine 0.70 (0.66-1.25) mg/dL Estimated GFR 95.5 ML/MIN Glucose 148 H (74-106) mg/dL Calcium 9.2 (8.4-10.2) mg/dL Total Bilirubin 0.40 (0.2-1.3) mg/dL AST 68 H (17-59) U/L ALT 139 H (0-50) U/L Alkaline Phosphatase 147 H (38-126) U/L Serum Total Protein 6.6 (6.3-8.2) g/dL Albumin 3.5 (3.5-5.0) g/dL TB (QFT) Incubation TB Test (QFT) Nil (.) IU/mL TB Test (QFT) Mitogen (.) IU/mL TB Test (QFT) Ag 1 (.) IU/mL TB Test (QFT) Ag 2 (.) IU/mL TB Test (QFT) (Negative) TB Test (QFT) Criteria (.) Radiology Exams: Radiology Procedures Category Date Time Status CHEST 1 VIEW (PORTABLE) Routine Exams 10/29/24 06:00 Ordered ECHO W/2D AND DOPPLER [US] Routine Exams 10/27/24 08:00 Taken Multi-Disciplinary Progress Notes: Multi-Disciplinary Progress Notes 10/28/24 13:05 Case Management Note by Jeniffer Elkins PATIENT WORKED WITH PHYSICAL THERAPY THIS AM, HE DID OKAY. WILL TRY TO GET PATIENT AGREEABLE TO [facility] AT TIME OF DC. PATIENT WILL ALSO NEED A ROLLATOR ORDERED AT TIME OF DC WELL. Initialized on 10/28/24 13:05 - END OF NOTE Assessment/Plan (1) Pneumonia involving right lung Current Visit: Yes Status: Acute Assessment & Plan: - CT reviewed showingdecreased left lung volume with likely surgical sutures (could be left lobectomy, correlation with surgical history is needed). Cavitary lesion ([id number]) in the upper part of the remaining left lung as well as parenchymal band/thickening. Right upper and middle pulmonary ground glass opacities with interlobular septal thickening, giving crazy paving pattern, it could be alveolitis, alveolar proteniosis, or other pattern of infection. Mild Left pleural effusion. Right hilar hypodense lesion measuring about [id number], could be elissa. Mild pericardial effusion. - Tele - Lactic acid now wnl -Continue Zosyn/Levaquin, steroids, advair, duonebs - dc azithromyci - BC x1 pre-mccallum with NGTD - lab did not collect second set of blood culture and Sputum culture pending - 4lNC- Baseline RA - [place]WBC reviewed at 27.1 -Afebrile -add procal 10/28/24 -Sputum cult with gram - ID -continue zosyn/levaquin -WBC reviewed at 25.3<27.1- trend -Blood cultures with NGTD x 1 as patient refused 2nd stick for 2nd set -continue steroids 10/29/24: -Sputum cult with serratia marescens - continue levaquin -discontinue zosyn -Qualify for home oxygen -Reduce solumedrol to 40mg BID -Repeat CXR showing improved right lung airspace disease Code(s): J18.9 - PNEUMONIA, UNSPECIFIED ORGANISM (2) Abnormal CT scan, chest Current Visit: Yes Status: Acute Assessment & Plan: - Pulm consulted - TB GOLD, and TB skin test - Isolation for TB d/t Cavitary lesion - CTA chest as stated above 10/28: TB gold indeterminate - TB skin test negative Code(s): R93.89 - ABNORMAL FINDINGS ON DX IMAGING OF OTH BODY STRUCTURES (3) Elevated d-dimer Current Visit: Yes Status: Acute Assessment & Plan: - CT neg for PE - Likely elevated 2:2 recent surgery. Code(s): R79.89 - OTHER SPECIFIED ABNORMAL FINDINGS OF BLOOD CHEMISTRY (4) Pericardial effusion Current Visit: Yes Status: Acute Assessment & Plan: - Mild pericardial effusion seen on CT - Echo with ef 60-65% -no pericardial effusion noted Code(s): I31.39 - OTHER PERICARDIAL EFFUSION (NONINFLAMMATORY) (5) Pleural effusion Current Visit: Yes Status: Acute Assessment & Plan: - as seen on CT - Consider thoracentesis Sunday as we are unable to order on the weekends - Lasix 20mg daily IV 10/28: -repeat CXR 10/29/2410/29: -No pleural effusion noted on CXR as stated above Code(s): J90 - PLEURAL EFFUSION, NOT ELSEWHERE CLASSIFIED (6) S/P lobectomy of lung Current Visit: Yes Status: Acute Assessment & Plan: -noted -adds to complexity Code(s): Z90.2 - ACQUIRED ABSENCE OF LUNG [PART OF] (7) Chest pain Current Visit: No Status: Acute Assessment & Plan: - Trops x3 negative - EKG - Tele - Echo- Sunday - likely 2:2 pneumonia /: -resolved Code(s): R07.9 - CHEST PAIN, UNSPECIFIED (8) Leukocytosis Current Visit: No Status: Acute Assessment & Plan: - 2:2 pneumonia and recent surgery 4 -WBC reviewed improving at 25.3<27.1 - Sputum with gram negative ID - BC x1 pre-mccallum with ngtd -continue zosyn/levaquin - dc azithromycin 10/29: -WBC improving now at 18.9<25.3 -Sputum culture with serratia marescens - sens to levaquin - will continue - dc zosyn Code(s): D72.829 - ELEVATED WHITE BLOOD CELL COUNT, UNSPECIFIED (9) Smoker Current Visit: No Status: Chronic Assessment & Plan: - advised cessation - nicotine patch Code(s): F17.200 - NICOTINE DEPENDENCE, UNSPECIFIED, UNCOMPLICATED (10) Shortness of breath Current Visit: No Status: Resolved Assessment & Plan: - 2:2 pneumonia see plan above VTE: SCD's PPI: Protonix Next of KIN: D/C plan: 3-4 days- or pending Pulm recs Code status: Full Code(s): J18.9 - PNEUMONIA, UNSPECIFIED ORGANISM (2) Abnormal CT scan, chest Current Visit: Yes Status: Acute Code(s): R93.89 - ABNORMAL FINDINGS ON DX IMAGING OF OTH BODY STRUCTURES (3) Elevated d-dimer Current Visit: Yes Status: Acute Code(s): R79.89 - OTHER SPECIFIED ABNORMAL FINDINGS OF BLOOD CHEMISTRY (4) Pericardial effusion Current Visit: Yes Status: Acute Code(s): I31.39 - OTHER PERICARDIAL EFFUSION (NONINFLAMMATORY) (5) Pleural effusion Current Visit: Yes Status: Acute Code(s): J90 - PLEURAL EFFUSION, NOT ELSEWHERE CLASSIFIED (6) S/P lobectomy of lung Current Visit: Yes Status: Acute Code(s): Z90.2 - ACQUIRED ABSENCE OF LUNG [PART OF] (7) Chest pain Current Visit: No Status: Acute Code(s): R07.9 - CHEST PAIN, UNSPECIFIED (8) Leukocytosis Current Visit: No Status: Acute Code(s): D72.829 - ELEVATED WHITE BLOOD CELL COUNT, UNSPECIFIED (9) Smoker Current Visit: No Status: Chronic Code(s): F17.200 - NICOTINE DEPENDENCE, UNSPECIFIED, UNCOMPLICATED (10) Shortness of breath Current Visit: No Status: Resolved Code(s): R06.02 - SHORTNESS OF BREATH
[2024-10-29 05:25] LABS: BASOPHIL % 0.1 % (0.2-1.2); Basophil (Absolute #) 0.02 x10^3/uL (0.01-0.08); Eosinophil (Absolute #) 0 x10^3/uL (0.04-0.54); Hemoglobin 11.3 g/dL (13.7-17.5); IMMATURE GRAN # 0.11 x10^3u/L (0.001-0.031); IMMATURE GRAN % 0.6 % (0.001-0.429); Lymphocyte (Absolute #) 0.66 x10^3/uL (1.32-3.57); Lymphocytes % 3.5 % (21.8-53.1); Mean Cell Volume 97.2 fL (79.0-92.2); Mean Corpuscular Hemoglobin 31.4 pg (25.7-32.2); Mean Corpuscular Hgb Concent. 32.3 g/dL (32.3-36.5); Mean Platelet Volume 9.3 fL (9.4-12.4); Monocytes % 2.1 % (5.3-12.2); Neutrophil % 93.7 % (34.0-67.9); Platelet Count 364 x10^3/uL (163-337); Red Cell Distribution Width 13.3 % (11.6-14.4); White Blood Count 18.9 x10^3/uL (4.23-9.07)
[2024-10-29 05:31] LABS: ALBUMIN 3.5 g/dL (3.5-5.0); ANION GAP 11.5 MEQ/L (5-15); BILIRUBIN,TOTAL 0.5 mg/dL (0.2-1.3); Calcium 9.2 mg/dL (8.4-10.2); Creatinine 1 0.64 mg/dL (0.66-1.25); EST GLOMERULAR FILTRATION RATE 98.1 ML/MIN; Potassium 4.1 mmol/L (3.5-5.1); Total Protein 6.7 g/dL (6.3-8.2)
--- NOTE | 2024-10-29 09:01 | XRAY ---
Indication: Pneumonia. Pleural effusion. Comparison: October 25, 2024 Portable chest demonstrates improving diffuse right lung airspace disease with mild residual especially upper lung. Stable left upper lobectomy with left lung volume loss. Heart not enlarged. No new cardiopulmonary abnormalities.
[2024-10-29] MEDS: solu-MEDROL 40 MG, Sterile H2O 10 ml 1 ML IV SCH (21:01)
[2024-10-29] MEDS: Tessalon Perles 100 MG PO PRN (21:01)
[2024-10-29 23:33] VITALS: RESP 16
--- NOTE | 2024-10-30 05:12 | PCM.NOTE ---
Date and Time: 10/30/24 0511 Subjective Assessment: is a 74 year old male with pmhx of HTN, hyperlipidemia, Lung cancer with recent lobectomy of left lung, sleep apnea, OA, BPH, GERD, and daily smoker. [facility] He came to the ER 10/25/24 with complaints of progressive shortness of breath and CP. Pt states he has been SOB since lobectomy of Left lung in November of 2023 but this week was worse. He saw Dr. Reece and was given an IM injection of steroids and antibiotics in office and sent home with antibiotics and steroids. Symptoms did not improve and he reported difficulty with ambulation without becoming short of breath. Lab findings remarkable leukocytoisis, gap acidosis, elevated lactic acid,transaminitis, and elevated D- Dimer. CT negative for PE. CT demonstrates decreased left lung volume with likely surgical sutures (could be left lobectomy, correlation with surgical history is needed). Cavitary lesion ([id number]) in the upper part of the remaining left lung as well as parenchymal band/thickening. Right upper and middle pulmonary ground glass opacities with interlobular septal thickening, giving crazy paving pattern, it could be alveolitis, alveolar proteniosis, or other pattern of infection. Mild Left pleural effusion. Right hilar hypodense lesion measuring about [id number], could be elissa. Mild pericardial effusion. Pulmonology consulted. Pt placed in isolation for possible TB. TB gold and TB skin test ordered. TB GOLD test is a send out test here and takes some time to get back. Oxygen requirements at 3lNC - baseline is room air. Admit for pneumonia. IP treatment with Zosyn and azithromycin and solumedrol. 10/27/24: Met with patient bedside. Endorses improvement in dyspnea. Cough more productive with clear sputum. Patient now on 3L NC. Plan to continue IV abx and steroids. TB test pending. 10/28/24: Met with patient bedside. Endorses continued improvement in cough and dyspnea. Oxygen requirements now at 2LNC. TB with indeterminate results. Skin TB test negative. Plan to continue abx and steroids. Denies fever,cp, abdominal pain, GEE, dizziness, N/V/D. 10/29/24: No overnight events noted. Dyspnea and cough improved. Sputum culture with serratia marescens- sensitive to levaquin. Lung sounds with improved aeration. Exp wheezing in bases- improved. WBC count improving. Most likely can discharge tomorrow if he continues to improve. Objective Data Vital Signs: Vital Signs - 24 hr Temp Pulse Resp BP Pulse Ox 10/30/24 03:57 97.8 F 67 16 166/73 97 10/29/24 23:33 97.5 F 72 16 158/76 95 10/29/24 22:08 78 20 96 10/29/24 20:00 97.9 F 77 16 140/65 94 L 10/29/24 18:07 76 18 96 10/29/24 16:00 97.9 F 65 16 151/76 92 L 10/29/24 11:46 97.8 F 70 16 154/70 94 L 10/29/24 07:37 97.5 F 69 16 144/66 99 10/29/24 07:20 67 18 96 Pain Assessment - Last Documented Pain Intensity 7 Pain Scale Used [facility] Intake and Output: Intake & Output 10/27/24 10/28/24 10/29/24 10/30/24 11:59 11:59 11:59 11:59 Intake Total 1402 1480 1570 1550 Output Total 733 060 2594 1000 Balance 902 580 -230 550 Lab Results: Lab Results-Last 24 Hours 10/29/24 10/29/24 Range/Units 05:07 05:07 WBC 18.9 H (4.23-9.07) x10^3/uL RBC 3.60 L (4.63-6.08) x10^6/uL Hgb 11.3 L (13.7-17.5) g/dL Hct 35.0 L (40.1-51.0) % MCV 97.2 H (79.0-92.2) fL MCH 31.4 (25.7-32.2) pg MCHC 32.3 (32.3-36.5) g/dL RDW 13.3 (11.6-14.4) % Plt Count 364 H (163-337) x10^3/uL MPV 9.3 L (9.4-12.4) fL Gran % 93.7 H (34.0-67.9) % Immature Gran % (Auto) 0.6 H (0.001-0.429) % Nucleat RBC Rel Count 0.0 (0.00-0.2) % Eos # (Auto) 0 L (0.04-0.54) x10^3/uL Immature Gran # (Auto) 0.11 H (0.001-0.031) x10^3u/L Absolute Lymphs (auto) 0.66 L (1.32-3.57) x10^3/uL Absolute Monos (auto) 0.40 (0.30-0.82) x10^3/uL Absolute Nucleated RBC 0.00 (0.00-0.012) x10^3u/L Lymphocytes % 3.5 L (21.8-53.1) % Monocytes % 2.1 L (5.3-12.2) % Eosinophils % 0.0 L (0.8-7.0) % Basophils % 0.1 L (0.2-1.2) % Absolute Granulocytes 17.70 H (1.78-5.38) x10^3/uL Basophils # 0.02 (0.01-0.08) x10^3/uL Sodium 140 (135-145) mmol/L Potassium 4.1 (3.5-5.1) mmol/L Chloride 100 (98-107) mmol/L Carbon Dioxide 33 H (22-30) mmol/L Anion Gap 11.5 (5-15) MEQ/L BUN 27 H (9-20) mg/dL Creatinine 0.64 L (0.66-1.25) mg/dL Estimated GFR 98.1 ML/MIN Glucose 150 H (74-106) mg/dL Calcium 9.2 (8.4-10.2) mg/dL Total Bilirubin 0.50 (0.2-1.3) mg/dL AST 59 (17-59) U/L ALT 173 H (0-50) U/L Alkaline Phosphatase 155 H (38-126) U/L Serum Total Protein 6.7 (6.3-8.2) g/dL Albumin 3.5 (3.5-5.0) g/dL Radiology Exams: Radiology Procedures Category Date Time Status CHEST 1 VIEW (PORTABLE) Routine Exams 10/29/24 06:00 Completed Multi-Disciplinary Progress Notes: Multi-Disciplinary Progress Notes 10/29/24 13:11 Case Management Note by Jeniffer Elkins REFERRAL FAXED TO [facility]. THEY WILL NEED NOTIFIED AT TIME OF DC AT [phone]. THEY WILL NEED FAXED THE DC INSTRUCTIONS, DC MED LIST AND DC SUMMARY TO [phone] Initialized on 10/29/24 13:11 - END OF NOTE 10/29/24 13:07 Case Management Note by Jeniffer Elkins S/W PATIENT ABOUT ANTICIPATED DC HOME TOMORROW. HE IS AGREEABLE TO [facility] AT TIME OF DC. [facility]- WILL SEND REFERRAL TO [facility]- THEY WILL WORK WITH AR TO PROVIDE SERVICES. IF OXYGEN IS NEEDED AT DC THIS [facility]. PATIENT PLANS TO RETURN HOME AND REPORTS HIS DAUGHTER AND SIG OTHER CAN CHECK ON HIM AND HELP IF NEEDED. HE DENIES ANY OTHER NEEDS AT THIS TIME Initialized on 10/29/24 13:07 - END OF NOTE Assessment/Plan (1) Pneumonia involving right lung Current Visit: Yes Status: Acute Assessment & Plan: - CT reviewed showingdecreased left lung volume with likely surgical sutures (could be left lobectomy, correlation with surgical history is needed). Cavitary lesion ([id number]) in the upper part of the remaining left lung as well as parenchymal band/thickening. Right upper and middle pulmonary ground glass opacities with interlobular septal thickening, giving crazy paving pattern, it could be alveolitis, alveolar proteniosis, or other pattern of infection. Mild Left pleural effusion. Right hilar hypodense lesion measuring about [id number], could be elissa. Mild pericardial effusion. - Tele - Lactic acid now wnl -Continue Zosyn/Levaquin, steroids, advair, duonebs - dc azithromyci - BC x1 pre-mccallum with NGTD - lab did not collect second set of blood culture and Sputum culture pending - 4lNC- Baseline RA - Pulm [place] -WBC reviewed at 27.1 -Afebrile -add procal 10/28/24 -Sputum cult with gram - ID -continue zosyn/levaquin -WBC reviewed at 25.3<27.1- trend -Blood cultures with NGTD x 1 as patient refused 2nd stick for 2nd set -continue steroids 10/29/24: -Sputum cult with serratia marescens - continue levaquin -discontinue zosyn -Qualify for home oxygen -Reduce solumedrol to 40mg BID -Repeat CXR showing improved right lung airspace disease Code(s): J18.9 - PNEUMONIA, UNSPECIFIED ORGANISM (2) Abnormal CT scan, chest Current Visit: Yes Status: Acute Assessment & Plan: - Pulm consulted - TB GOLD, and TB skin test - Isolation for TB d/t Cavitary lesion - CTA chest as stated above 10/28: TB gold indeterminate - TB skin test negative Code(s): R93.89 - ABNORMAL FINDINGS ON DX IMAGING OF OTH BODY STRUCTURES (3) Elevated d-dimer Current Visit: Yes Status: Acute Assessment & Plan: - CT neg for PE - Likely elevated 2:2 recent surgery. Code(s): R79.89 - OTHER SPECIFIED ABNORMAL FINDINGS OF BLOOD CHEMISTRY (4) Pericardial effusion Current Visit: Yes Status: Acute Assessment & Plan: - Mild pericardial effusion seen on CT - Echo with ef 60-65% -no pericardial effusion noted Code(s): I31.39 - OTHER PERICARDIAL EFFUSION (NONINFLAMMATORY) (5) Pleural effusion Current Visit: Yes Status: Acute Assessment & Plan: - as seen on CT - Consider thoracentesis Sunday as we are unable to order on the s - Lasix 20mg daily IV 10/28: -repeat CXR 10/29/2410/29: -No pleural effusion noted on CXR as stated above Code(s): J90 - PLEURAL EFFUSION, NOT ELSEWHERE CLASSIFIED (6) S/P lobectomy of lung Current Visit: Yes Status: Acute Assessment & Plan: -noted -adds to complexity Code(s): Z90.2 - ACQUIRED ABSENCE OF LUNG [PART OF] (7) Chest pain Current Visit: No Status: Acute Assessment & Plan: - Trops x3 negative - EKG - Tele - Echo- Sunday - likely 2:2 pneumonia 10/28: -resolved Code(s): R07.9 - CHEST PAIN, UNSPECIFIED (8) Leukocytosis Current Visit: No Status: Acute Assessment & Plan: - 2:2 pneumonia and recent surgery 4 -WBC reviewed improving at 25.3<27.1 - Sputum with gram negative ID - BC x1 pre-mccallum with ngtd -continue zosyn/levaquin - dc azithromycin 10/29: -WBC improving now at 18.9<25.3 -Sputum culture with serratia marescens - sens to levaquin - will continue - dc zosyn Code(s): D72.829 - ELEVATED WHITE BLOOD CELL COUNT, UNSPECIFIED (9) Smoker Current Visit: No Status: Chronic Assessment & Plan: - advised cessation - nicotine patch Code(s): F17.200 - NICOTINE DEPENDENCE, UNSPECIFIED, UNCOMPLICATED (10) Shortness of breath Current Visit: No Status: Resolved Assessment & Plan: - 2:2 pneumonia see plan above VTE: SCD's PPI: Protonix Next of KIN: D/C plan: 3-4 days- or pending Pulm recs Code status: Full Code(s): J18.9 - PNEUMONIA, UNSPECIFIED ORGANISM (2) Abnormal CT scan, chest Current Visit: Yes Status: Acute Code(s): R93.89 - ABNORMAL FINDINGS ON DX IMAGING OF OTH BODY STRUCTURES (3) Elevated d-dimer Current Visit: Yes Status: Acute Code(s): R79.89 - OTHER SPECIFIED ABNORMAL FINDINGS OF BLOOD CHEMISTRY (4) Pericardial effusion Current Visit: Yes Status: Acute Code(s): I31.39 - OTHER PERICARDIAL EFFUSION (NONINFLAMMATORY) (5) Pleural effusion Current Visit: Yes Status: Acute Code(s): J90 - PLEURAL EFFUSION, NOT ELSEWHERE CLASSIFIED (6) S/P lobectomy of lung Current Visit: Yes Status: Acute Code(s): Z90.2 - ACQUIRED ABSENCE OF LUNG [PART OF] (7) Chest pain Current Visit: No Status: Acute Code(s): R07.9 - CHEST PAIN, UNSPECIFIED (8) Leukocytosis Current Visit: No Status: Acute Code(s): D72.829 - ELEVATED WHITE BLOOD CELL COUNT, UNSPECIFIED (9) Smoker Current Visit: No Status: Chronic Code(s): F17.200 - NICOTINE DEPENDENCE, UNSPECIFIED, UNCOMPLICATED (10) Shortness of breath Current Visit: No Status: Resolved Code(s): R06.02 - SHORTNESS OF BREATH
[2024-10-30 05:15] LABS: Hematocrit 33.4 % (40.1-51.0); Hemoglobin 10.9 g/dL (13.7-17.5); Mean Cell Volume 97.7 fL (79.0-92.2); Mean Corpuscular Hemoglobin 31.9 pg (25.7-32.2); Mean Corpuscular Hgb Concent. 32.6 g/dL (32.3-36.5); Mean Platelet Volume 9.4 fL (9.4-12.4); Platelet Count 355 x10^3/uL (163-337); Red Blood Count 3.42 x10^6/uL (4.63-6.08); Red Cell Distribution Width 13.6 % (11.6-14.4); White Blood Count 18.4 x10^3/uL (4.23-9.07)
[2024-10-30 05:50] LABS: ALBUMIN 3.4 g/dL (3.5-5.0); ANION GAP 10.9 MEQ/L (5-15); BILIRUBIN,TOTAL 0.4 mg/dL (0.2-1.3); Calcium 9.1 mg/dL (8.4-10.2); Creatinine 1 0.63 mg/dL (0.66-1.25); EST GLOMERULAR FILTRATION RATE 98.6 ML/MIN; Potassium 4.2 mmol/L (3.5-5.1); Total Protein 6.3 g/dL (6.3-8.2)
[2024-10-30 07:37] LABS: Monocyte 1 % (5.3-12.2); Total Cells Counted 100
[2024-10-30 07:40] LABS: Platelet Estimate INCREASED (NORMAL)
[2024-10-30 07:45] LABS: Lymphocytes 8 % (21.8-53.1); Neutrophils 91 % (34.0-67.9)
[2024-10-30] MEDS ORDERED: solu-MEDROL ONE (09:00)
--- NOTE | 2024-10-30 10:53 | PCM.DS ---
Discharge Summary Date of Admission: 10/25/24 17:15 Date of Discharge: 10/30/24 Admitting Physician: DOMITILA PARKER MD Consults: Consults on Case 10/25/24 17:34 Consult Pulmonology ROUTINE Primary Care Provider: [facility] Allergies Allergies terazosin Allergy (Verified 10/25/24 10:32) Hospital Summary - Hospital Course Hospital Course: is a 74 year old male with pmhx of HTN, hyperlipidemia, Lung cancer with recent lobectomy of left lung, sleep apnea, OA, BPH, GERD, and daily smoker. [facility] He came to the ER 10/25/24 with complaints of progressive shortness of breath and CP. Pt states he has been SOB since lobectomy of Left lung in November of 2023 but this week was worse. He saw Dr. Bentley and was given an IM injection of steroids and antibiotics in office and sent home with antibiotics and steroids. Symptoms did not improve and he reported difficulty with ambulation without becoming short of breath. Lab findings remarkable leukocytoisis, gap acidosis, elevated lactic acid,transaminitis, and elevated D- Dimer. CT negative for PE. CT demonstrates decreased left lung volume with likely surgical sutures (could be left lobectomy, correlation with surgical hi story is needed). Cavitary lesion ([id number]) in the upper part of the remaining left lung as well as parenchymal band/thickening. Right upper and middle pulmonary ground glass opacities with interlobular septal thickening, giving crazy paving pattern, it could be alveolitis, alveolar proteniosis, or other pattern of infection. Mild Left pleural effusion. Right hilar hypodense lesion measuring about [id number], could be elissa. Mild pericardial effusion. Pulmonology consulted. Pt placed in isolation for possible TB. TB gold and TB skin test ordered. TB GOLD test is a send out test here and takes some time to get back. Oxygen requirements at 3lNC - baseline is room air. Admit for pneumonia. IP treatment with Zosyn and azithromycin and solumedrol. Sputum culture with Erratia Macescens- abx changed to levaquin. Patient qualifies for home oxygen. Repeat CXR with improved airspace disease. Dyspnea and cough have improved. TB negative. Patient is stable for discharge. Blood culture NGTD. Will dismiss patient on Levaquin and medrol dose pack with [facility] Discharge Note New Diagnosis: pneumonia New Medications: medrol dose pack/levaquin/protonix Follow Up: pcp/pulmonology Latest Assessment & Plan (1) Pneumonia involving right lung Current Visit: Yes Status: Acute Assessment & Plan: - CT reviewed showingdecreased left lung volume with likely surgical sutures (could be left lobectomy, correlation with surgical history is needed). Cavitary lesion ([id number]) in the upper part of the remaining left lung as well as parenchymal band/thickening. Right upper and middle pulmonary ground glass opacities with interlobular septal thickening, giving crazy paving pattern, it could be alveolitis, alveolar proteniosis, or other pattern of infection. Mild Left pleural effusion. Right hilar hypodense lesion measuring about [id number], could be elissa. Mild pericardial effusion. - Tele - Lactic acid now wnl -Continue Zosyn/Levaquin, steroids, advair, duonebs - dc azithromyci - BC x1 pre-mccallum with NGTD - lab did not collect second set of blood culture and Sputum culture pending - 4lNC- Baseline RA - [place]m consult [place] -WBC reviewed at 27.1 -Afebrile -add procal 10/28/24 -Sputum cult with gram - ID -continue zosyn/levaquin -WBC reviewed at 25.3<27.1- trend -Blood cultures with NGTD x 1 as patient refused 2nd stick for 2nd set -continue steroids 10/29/24: -Sputum cult with serratia marescens - continue levaquin -discontinue zosyn -Qualify for home oxygen -Reduce solumedrol to 40mg BID -Repeat CXR showing improved right lung airspace disease Code(s): J18.9 - PNEUMONIA, UNSPECIFIED ORGANISM (2) Abnormal CT scan, chest Current Visit: Yes Status: Acute Assessment & Plan: - Pulm consulted - TB GOLD, and TB skin test - Isolation for TB d/t Cavitary lesion - CTA chest as stated above 10/28: TB gold indeterminate - TB skin test negative Code(s): R93.89 - ABNORMAL FINDINGS ON DX IMAGING OF OTH BODY STRUCTURES (3) Elevated d-dimer Current Visit: Yes Status: Acute Assessment & Plan: - CT neg for PE - Likely elevated 2:2 recent surgery. Code(s): R79.89 - OTHER SPECIFIED ABNORMAL FINDINGS OF BLOOD CHEMISTRY (4) Pericardial effusion Current Visit: Yes Status: Acute Assessment & Plan: - Mild pericardial effusion seen on CT - Echo with ef 60-65% -no pericardial effusion noted Code(s): I31.39 - OTHER PERICARDIAL EFFUSION (NONINFLAMMATORY) (5) Pleural effusion Current Visit: Yes Status: Acute Assessment & Plan: - as seen on CT - Consider thoracentesis Sunday as we are unable to order on the s - Lasix 20mg daily IV 10/28: -repeat CXR 10/29/2410/29: -No pleural effusion noted on CXR as stated above Code(s): J90 - PLEURAL EFFUSION, NOT ELSEWHERE CLASSIFIED (6) S/P lobectomy of lung Current Visit: Yes Status: Acute Assessment & Plan: -noted -adds to complexity Code(s): Z90.2 - ACQUIRED ABSENCE OF LUNG [PART OF] (7) Chest pain Current Visit: No Status: Acute Assessment & Plan: - Trops x3 negative - EKG - Tele - Echo- Sunday - likely 2:2 pneumonia 10/28: -resolved Code(s): R07.9 - CHEST PAIN, UNSPECIFIED (8) Leukocytosis Current Visit: No Status: Acute Assessment & Plan: - 2:2 pneumonia and recent surgery 4 -WBC reviewed improving at 25.3<27.1 - Sputum with gram negative ID - BC x1 pre-mccallum with ngtd -continue zosyn/levaquin - dc azithromycin 10/29: -WBC improving now at 18.9<25.3 -Sputum culture with serratia marescens - sens to levaquin - will continue - dc zosyn Code(s): D72.829 - ELEVATED WHITE BLOOD CELL COUNT, UNSPECIFIED (9) Smoker Current Visit: No Status: Chronic Assessment & Plan: - advised cessation - nicotine patch Code(s): F17.200 - NICOTINE DEPENDENCE, UNSPECIFIED, UNCOMPLICATED (10) Shortness of breath Current Visit: No Status: Resolved Assessment & Plan: - 2:2 pneumonia see plan above VTE: SCD's PPI: Protonix I spent 35 minutes [id number] with the patient on the day of discharge performing discharge exam, discussing hospital stay and discharge instructions with patient and caregivers, preparation of discharge records, prescriptions & referral forms and addressing any questions/concerns the patient had as documented above. - Vitals & Intake/Output Vital Signs: Vital Signs Temperature 98.1 F 10/30/24 07:46 Pulse Rate 69 10/30/24 07:46 Respiratory Rate 16 10/30/24 07:46 Blood Pressure 161/74 10/30/24 07:46 O2 Sat by Pulse Oximetry 98 10/30/24 07:46 Intake & Output: Intake & Output 10/27/24 10/28/24 10/29/24 10/30/24 11:59 11:59 11:59 11:59 Intake Total 1402 1480 1570 2230 Output Total 283 411 3890 1400 Balance 902 580 -230 830 - Lab Result Diagrams: 10/30/24 05:07 10/30/24 05:07 Lab Results-Last 24 Hrs: Lab Results-Last 24 Hours 10/30/24 10/30/24 Range/Units 05:07 05:07 WBC 18.4 H (4.23-9.07) x10^3/uL RBC 3.42 L (4.63-6.08) x10^6/uL Hgb 10.9 L (13.7-17.5) g/dL Hct 33.4 L (40.1-51.0) % MCV 97.7 H (79.0-92.2) fL MCH 31.9 (25.7-32.2) pg MCHC 32.6 (32.3-36.5) g/dL RDW 13.6 (11.6-14.4) % Plt Count 355 H (163-337) x10^3/uL MPV 9.4 (9.4-12.4) fL Segmented Neutrophils 91 H (34.0-67.9) % Lymphocytes (Manual) 8 L (21.8-53.1) % Monocytes (Manual) 1 L (5.3-12.2) % Basophils (Manual) (0.2-1.2) % Metamyelocytes % Platelet Estimate INCREASED (NORMAL) RBC Morphology NORMAL Sodium 141 (135-145) mmol/L Potassium 4.2 (3.5-5.1) mmol/L Chloride 100 (98-107) mmol/L Carbon Dioxide 34 H (22-30) mmol/L Anion Gap 10.9 (5-15) MEQ/L BUN 34 H (9-20) mg/dL Creatinine 0.63 L (0.66-1.25) mg/dL Estimated GFR 98.6 ML/MIN Glucose 130 H (74-106) mg/dL Calcium 9.1 (8.4-10.2) mg/dL Total Bilirubin 0.40 (0.2-1.3) mg/dL AST 51 (17-59) U/L ALT 184 H (0-50) U/L Alkaline Phosphatase 144 H (38-126) U/L Serum Total Protein 6.3 (6.3-8.2) g/dL Albumin 3.4 L (3.5-5.0) g/dL Micro Results-Entire Visit: Microbiology 10/27/24 09:53 Gram Stain - Final Sputum - Expectorant Sputum Culture - Final Serratia Marcescens 10/25/24 19:37 Blood Culture - Preliminary Blood - Radiology Exams Ordered Rad Exams-Entire Visit: Radiology Procedures Category Date Time Status CHEST 1 VIEW (PORTABLE) Routine Exams 10/29/24 06:00 Completed - Procedures and Test Procedures and Tests throughout Hospitalization: Therapy Orders & Screens 10/25/24 11:11 Respiratory Therapy Assessment DAILY Comment: 10/25/24 17:24 Oxygen Nasal Cannula 2 lpm Comment: Respiratory Therapy Consult ONCE Comment: Reason For Exam: 10/25/24 17:45 Respiratory Therapy Assessment DAILY Comment: 10/26/24 07:46 Flutter Therapy UD Comment: Diagnosis: shortness of breath and CP 10/26/24 08:17 PT Eval & Treat (MD Order) ONCE Reason for Eval:: weakness with SOB Diagnosis: shortness of breath and CP 10/26/24 22:43 BiPap/CPAP ROUTINE Comment: Diagnosis: shortness of breath and CP 10/29/24 13:25 Qualify for Home Oxygen ROUTINE Comment: Diagnosis: shortness of breath and CP 10/30/24 00:29 Respiratory MDI BID Comment: Diagnosis: shortness of breath and CP Discharge Exam General Appearance: no apparent distress Neurologic Exam: alert, oriented x 3, cooperative Eye Exam: PERRL Ears, Nose, Throat Exam: normal ENT inspection Neck Exam: normal inspection Respiratory Exam: diminished breath sounds, wheezing Cardiovascular Exam: regular rate/rhythm, normal heart sounds Gastrointestinal/Abdomen Exam: soft, normal bowel sounds Male Genitalia Exam: deferred Rectal Exam: deferred Back Exam: normal inspection Extremity Exam: normal inspection Skin Exam: normal color Lymphatic Exam: adenopathy Final Diagnosis/Problem List - Final Discharge Diagnosis/Problem (1) Pneumonia involving right lung Current Visit: Yes Status: Acute Code(s): J18.9 - PNEUMONIA, UNSPECIFIED ORGANISM (2) Abnormal CT scan, chest Current Visit: Yes Status: Acute Code(s): R93.89 - ABNORMAL FINDINGS ON DX IMAGING OF OTH BODY STRUCTURES (3) Elevated d-dimer Current Visit: Yes Status: Acute Code(s): R79.89 - OTHER SPECIFIED ABNORMAL FINDINGS OF BLOOD CHEMISTRY (4) Pericardial effusion Current Visit: Yes Status: Acute Code(s): I31.39 - OTHER PERICARDIAL EFFUSION (NONINFLAMMATORY) (5) Pleural effusion Current Visit: Yes Status: Acute Code(s): J90 - PLEURAL EFFUSION, NOT ELSEWHERE CLASSIFIED (6) S/P lobectomy of lung Current Visit: Yes Status: Acute Code(s): Z90.2 - ACQUIRED ABSENCE OF LUNG [PART OF] (7) Chest pain Current Visit: No Status: Acute Code(s): R07.9 - CHEST PAIN, UNSPECIFIED (8) Leukocytosis Current Visit: No Status: Acute Code(s): D72.829 - ELEVATED WHITE BLOOD CELL COUNT, UNSPECIFIED (9) Smoker Current Visit: No Status: Chronic Code(s): F17.200 - NICOTINE DEPENDENCE, UNSPECIFIED, UNCOMPLICATED (10) Shortness of breath Current Visit: No Status: Resolved Code(s): R06.02 - SHORTNESS OF BREATH - Discharge Discharge Date: 10/30/24 Disposition: Home, Self-Care Condition: Stable Prescriptions: New Benzonatate 100 mg PO TIDPRN 10 Days #30 cap Fluticasone Propion/Salmeterol [Fluticasone-Salmeterol 250-50] 1 each IH BID 30 Days #1 inh levoFLOXacin [Levofloxacin] 750 mg PO DAILY 10 Days #10 tablet Methylprednisolone Packet [Medrol Dosepack] 4 mg PO UD 7 Days #1 packet Continue Gabapentin [Neurontin ] 600 mg PO UD Tamsulosin HCl 0.4 mg [Flomax 0.4 MG] 0.4 mg PO HS Helix 3/Dha/Epa/Vitamin D3 [Helix-3 + Vitamin D3 Softgel] 1 each PO DAILY Multivitamin [Multi-Vitamin Daily] 1 each PO DAILY Celecoxib 100 mg [celeBREX 100 MG] 200 mg PO BID Hydrocodone /APAP 7.5/325 mg [[place] 7.5/325 mg Tab] 1 tab PO Q6HPRN PRN PRN Reason: Pain Simvastatin 20Mg [Zocor 20Mg] 20 mg PO HS Omeprazole 20 MG [Prilosec 20 mg] 20 mg PO DAILY Amlodipine Besylate 5 mg [Norvasc 5 mg] 20 mg PO HS Lisinopril/Hydrochlorothiazide [Lisinopril-Hctz 10-12.5 mg Tab] 1 tab PO DAILY Albuterol/Ipratropium 3ml Neb* [DUONEB 0.5-3 MG/3 ml Neb] 3 ml IH Q6HPRN PRN 30 Days #120 amp PRN Reason: Shortness Of Breath/Wheezing Acetaminophen 500 mg [Tylenol Extra Strength 500 mg] 1,000 mg PO UD Additional Instructions: [facility] HAS BEEN SET UP FOR YOU. THEY WILL CONTACT YOU TO ARRANGE A TIME TO COME SEE YOU. THEIR PHONE NUMBER IS [phone] IF YOU NEED ANYTHING PRIOR TO THEIR FIRST VISIT Follow up with: DUSTIN BENTLEY [ACTIVE STAFF] - 11/12/24 3:30 pm [facility]OSP[facility] [Primary Care Provider] - Call for Appointment
[2024-10-30 12:09] VITALS: BP 119/67; PULSE 84; TEMP 98.3; O2SAT 96
== END 2024-10-30 12:27 | disposition home health service (06) ==
LOC: ED 10:29 → MED SURG 17:15
PROVIDERS: ADMIT Internal Medicine; ATTEND Internal Medicine
DX: J18.9 Pneumonia, unspecified organism (principal); R93.89 Abnormal findings on diagnostic imaging of other specified body structures; R79.89 Other specified abnormal findings of blood chemistry; I31.39 Other pericardial effusion (noninflammatory); J90 Pleural effusion, not elsewhere classified; Z90.2 Acquired absence of lung [part of]; Z85.118 Personal history of other malignant neoplasm of bronchus and lung; R07.9 Chest pain, unspecified; D72.829 Elevated white blood cell count, unspecified; F17.200 Nicotine dependence, unspecified, uncomplicated; R06.02 Shortness of breath; I10 Essential (primary) hypertension; E78.5 Hyperlipidemia, unspecified; N40.0 Benign prostatic hyperplasia without lower urinary tract symptoms; K21.9 Gastro-esophageal reflux disease without esophagitis; Z79.899 Other long term (current) drug therapy
CPT/HCPCS: 0241U; 36415; 71045; 71260; 80053; 81001; 82150; 83605; 83690; 83880; 84145; 84484; 85025; 85027; 85379; 86480; 87040; 87070; 87077; 87186; 93005; 93268; 93306; 94640; 94660; 94667; 94668; 94760; 94762; 96365; 96374; 97161; 97530; 99285; G0378; Q3014; J0456; J0696; J1940; J1956; J2543; J2919; A9270-GY

== ENCOUNTER 2025-06-09 08:25 | Day surgery (SDC) | payer OTHER ==
[~2025-06-09 08:25] MED LIST: Lactated Ringers 1,000 ML IV ONE
[2025-06-09] MEDS: TETRACAINE 0.5% STERI-UNIT SOL OP ONE ×2 (08:30→08:31)
[2025-06-09] MEDS: Lactated Ringers 1,000 ML IV SCH (08:30)
[2025-06-09] MEDS: Ak-Dilate OPHTHALMIC*** 0.71 ML, Cyclogyl 1% OPHTH SOL 0.71 ML, GATIFLOXACIN 0.5% OPHTH... OP SCH (08:31)
[2025-06-09 09:17] LABS: Calcium 9.2 mg/dL (8.4-10.2); Carbon Dioxide 28.0 mmol/L (22-30); Creatinine 1 0.69 mg/dL (0.66-1.25); EST GLOMERULAR FILTRATION RATE 95.3 ML/MIN; Glucose 109.0 mg/dL (74-106); Potassium 4.7 mmol/L (3.5-5.1)
[2025-06-09] MEDS ORDERED: Zofran 4 MG/2 ML VIAL IV PRN (10:30)
[2025-06-09] MEDS ORDERED: DEXMEDETOMIDINE 80 MCG/20ML-NS IV NR (10:30)
[2025-06-09] MEDS ORDERED: TRIAMCINOLONE 15 MG/ML INJ INTRAOP NR (10:30)
[2025-06-09] MEDS ORDERED: DEXTENZA OP NR (10:30)
[2025-06-09] MEDS ORDERED: BETADINE 5% OPHTHALMIC 30 ML OP NR (10:30)
[2025-06-09] MEDS ORDERED: OMIDRIA 1-0.3% VIAL IO NR (10:30)
[2025-06-09] MEDS ORDERED: VIGAMOX/BSS 0.15% SYR IO NR (10:30)
[2025-06-09] MEDS ORDERED: propofoL IV ONE (12:20)
[2025-06-09] MEDS: ACETAZOLAMIDE 250 MG TABLET PO ONE (12:55)
[2025-06-09 13:02] VITALS: BP 107/64; PULSE 69; RESP 18; TEMP 98.2; O2SAT 96
== END 2025-06-09 13:08 | disposition home or self-care (01) ==
LOC: SDC 08:25
PROVIDERS: ATTEND Ophthalmology
DX: H25.811 Combined forms of age-related cataract, right eye (principal); I10 Essential (primary) hypertension

== ENCOUNTER 2025-08-09 09:40 | Emergency (ER) | payer OTHER ==
--- NOTE | 2025-08-09 09:51 | ERPHSYRPT ---
- History of Present Illness Time Seen by Provider: 08/09/25 09:46 Source: patient, family Exam Limitations: no limitations Physician History: 75-year-old male presents to the emergency room with shortness of breath that started at 1 AM patient reports he uses albuterol nebulizers at home he smokes about 1 cigarette a day he is on Suboxone 50 mg an hour on a transdermal patch that is changed once a week denies any fevers reports cough with increasing dyspnea denies any chest pain denies abdominal pain denies any nausea vomiting diarrhea patient is able to ambulate with a cane denies using any oxygen supposed to use CPAP at night but he reports he took it off because of his trouble breathing now in ED for further eval Timing/Duration: today Activities at Onset: none Severity of Dyspnea-Max: mild Severity of Dyspnea-Current: mild Possible Cause: occasional episodes Modifying Factors: Improves With: albuterol inhaler Associated Symptoms: intermittent, cough, productive cough Allergies/Adverse Reactions: terazosin Allergy (Verified 06/02/25 09:49) Home Medications: Celecoxib 100 mg [celeBREX 100 MG] 200 mg PO BID 02/28/13 [History] Gabapentin [Neurontin ] 600 mg PO UD 02/28/13 [History] Multivitamin [Multi-Vitamin Daily] 1 each PO DAILY 02/28/13 [History] Aragon 3/Dha/Epa/Vitamin D3 [Aragon-3 + Vitamin D3 Softgel] 1 each PO DAILY 02/28/13 [History] Omeprazole 20 MG [Prilosec 20 mg] 20 mg PO DAILY 02/28/13 [History] Simvastatin 20Mg [Zocor 20Mg] 20 mg PO HS 02/28/13 [History] Tamsulosin HCl 0.4 mg [Flomax 0.4 MG] 0.4 mg PO HS 02/28/13 [History] Lisinopril/Hydrochlorothiazide [Lisinopril-Hctz 10-12.5 mg Tab] 1 tab PO DAILY 12/11/23 [History] Buprenorphine 1 each TP WEEKLY 04/21/25 [History] Cetirizine HCl [All Day Allergy Relief] 1 tab PO DAILY 04/21/25 [History] Polyethylene Glycol 1000 [Polyethylene Glycol] 17 gm PO DAILY 04/21/25 [History] Propylene Glycol/Peg 400 [[place] Tears 0.4-0.3% Eye Drop] 1 drop TP DAILY 04/21/25 [History] Tiotropium Br/Olodaterol HCl [Stiolto Respimat Inhaler (10)] 1 spray IH DAILY 04/21/25 [History] Varenicline Tartrate 1 tab PO DAILY 04/21/25 [History] Vit A/Vit C/Vit E/Zinc/Copper [Preservision Areds Tablet] 1 tab PO DAILY 04/21/25 [History] Naproxen Sodium [Naprelan] 500 mg PO Q8H PRN PRN 06/02/25 [History] Hx Tetanus, Diphtheria Vaccination/Date Given: Yes Hx Influenza Vaccination/Date Given: Yes Hx Pneumococcal Vaccination/Date Given: Yes Travel Risk - Emerging Infectious Disease Are you exhibiting symptoms associated with any current EIDs: No Symptoms: Cough: New Onset - Review of Systems Constitutional: No Fever, No Chills Eyes: No Symptoms Ears, Nose, & Throat: No Symptoms Respiratory: Cough, Dyspnea Cardiac: No Chest Pain, No Edema, No Syncope Abdominal/Gastrointestinal: No Abdominal Pain, No Nausea, No Vomiting, No Diarrhea Genitourinary Symptoms: No Dysuria Musculoskeletal: No Back Pain, No Neck Pain Skin: No Rash Neurological: No Dizziness, No Focal Weakness, No Sensory Changes Psychological: No Symptoms Endocrine: No Symptoms All Other Systems: Reviewed and Negative - Past Medical History Pertinent Past Medical History: Yes Neurological History: No Pertinent History ENT History: Cataracts Cardiac History: Hypertension Respiratory History: COPD Endocrine Medical History: No Pertinent History Musculoskeletal History: Arthritis GI Medical History: GERD History: No Pertinent History Psycho-Social History: No Pertinent History Male Reproductive Disorders: No Pertinent History Other Medical History: left hydrocele. Lung Cancer - Past Surgical History Past Surgical History: Yes Neuro Surgical History: No Pertinent History Cardiac: No Pertinent History Respiratory: Lobectomy Gastrointestinal: Appendectomy Genitourinary: No Pertinent History Musculoskeletal: Joint Replacement, Other Male Surgical History: No Pertinent History Other Surgical History: Back Surgery x 2, Bilateral Hip Replacements Significant Family History: no pertinent family hx - Social History Smoking Status: Current some day smoker How long have you smoked: 63 YRS - Social Determinants of Health Will the patient participate in the screening: Yes Do you worry about a steady place to live?: No In the past 12 months,have you had to go without utilities?: No Transportation Issues: No Has anyone in your support network made you feel unsafe?: No Have you or anyone in your house had to go w/o enough food: No - Nursing Vital Signs Nursing Vital Signs: Initial Vital Signs Temperature 98.5 F 08/09/25 09:41 Pulse Rate 130 H 08/09/25 09:41 Respiratory Rate 23 08/09/25 09:41 Blood Pressure 127/89 08/09/25 09:41 O2 Sat by Pulse Oximetry 91 L 08/09/25 09:41 Pain Scale Pain Intensity 0 - Physical Exam General Appearance: no apparent distress, alert Eye Exam: PERRL/EOMI Neck Exam: normal inspection, supple Respiratory Exam: diminished breath sounds Cardiovascular/Chest Exam: normal heart sounds, tachycardia Abdominal/Gastrointestinal Exam: soft, No tenderness, No distention, No mass Extremity Exam: non-tender, normal range of motion, normal inspection, no calf tenderness, no pedal edema Neurologic Exam: alert, oriented x 3, 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, 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, sensation nml, No motor deficits Skin Exam: normal color, warm, No dry SpO2 Interpretation: normal SpO2: 93 O2 Delivery: Room Air - Course Nursing assessment & vital signs reviewed: Yes EKG Interpreted by Me: RATE ([id number]), Sinus Tach, Non-specific ST Changes, Other (PVCs no STEMI) Ordered Tests: Active Orders 24 hr Category Date Time Status Aluminum Siding Applicator STAT Care 08/09/25 09:46 Completed EKG-ER Only STAT Care 08/09/25 09:44 Completed IV Insertion STAT Care 08/09/25 09:44 Completed Oxygen-ED Only Nasal Cannula 2 lpm Care 08/09/25 09:44 Completed Pulse Oximetry (ED) STAT Care 08/09/25 09:44 Completed CHEST 1 VIEW (PORTABLE) Stat Exams 08/09/25 09:45 Taken CHEST WITH CONTRAST [CT] Stat Exams 08/09/25 09:45 Completed ARTERIAL BLOOD GASES Stat Lab 08/09/25 09:44 Results CBC W DIFF Stat Lab 08/09/25 09:55 Completed CMP Stat Lab 08/09/25 09:55 Completed Lactic Acid Stat Lab 08/09/25 09:44 Results MAGNESIUM Stat Lab 08/09/25 09:55 Completed NT PRO BNPII Stat Lab 08/09/25 09:55 Completed PROTIME WITH INR Stat Lab 08/09/25 09:55 Completed PTT Stat Lab 08/09/25 09:55 Completed TROPONIN Stat Lab 08/09/25 09:55 Completed Respiratory Therapy Assessment DAILY RT 08/09/25 10:06 Completed Medication Summary Discontinued Medications Generic Name Dose Route Start Last Admin Trade Name Camille PRN Reason Stop Dose Admin Albuterol/Ipratropium 3 ml 08/09/25 09:44 08/09/25 10:03 Ipratropium/Albuterol Sulfate 3 Ml Ampul.Neb IH 08/09/25 09:45 3 ml STAT ONE Administration Albuterol/Ipratropium Confirm 08/09/25 09:59 Ipratropium/Albuterol Sulfate 3 Ml Ampul.Neb Administered 08/09/25 10:00 Dose 3 ml IH .STK-MED ONE Albuterol/Ipratropium 3 ml 08/09/25 13:27 08/09/25 13:41 Ipratropium/Albuterol Sulfate 3 Ml Ampul.Neb IH 08/09/25 13:28 3 ml STAT ONE Administration Albuterol/Ipratropium Confirm 08/09/25 13:40 Ipratropium/Albuterol Sulfate 3 Ml Ampul.Neb Administered 08/09/25 13:41 Dose 3 ml IH .STK-MED ONE Lab/Rad Data: Laboratory Result Diagrams 08/09/25 09:55 08/09/25 09:55 Laboratory Results 08/09/25 08/09/25 08/09/25 Range/Units 09:58 09:55 09:55 WBC (4.23-9.07) x10^3/uL RBC (4.63-6.08) x10^6/uL Hgb (13.7-17.5) g/dL Hct (40.1-51.0) % MCV (79.0-92.2) fL MCH (25.7-32.2) pg MCHC (32.3-36.5) g/dL RDW (11.6-14.4) % Plt Count (163-337) x10^3/uL MPV (9.4-12.4) fL Gran % (34.0-67.9) % Immature Gran % (Auto) (0.001-0.429) % Nucleat RBC Rel Count (0.00-0.2) % Eos # (Auto) (0.04-0.54) x10^3/uL Immature Gran # (Auto) (0.001-0.031) x10^3u/L Absolute Lymphs (auto) (1.32-3.57) x10^3/uL Absolute Monos (auto) (0.30-0.82) x10^3/uL Absolute Nucleated RBC (0.00-0.012) x10^3u/L Lymphocytes % (21.8-53.1) % Monocytes % (5.3-12.2) % Eosinophils % (0.8-7.0) % Basophils % (0.2-1.2) % Absolute Granulocytes (1.78-5.38) x10^3/uL Basophils # (0.01-0.08) x10^3/uL PT 11.4 (9.4-12.5) SECONDS INR 1.02 (0.8-3.0) APTT 27.1 (25.1-36.5) SECONDS Puncture Site pCO2 (35-45) mmHg pO2 (75-100) mmHg Base Excess (-2.0-2.0) O2 Saturation (94-100) g/dF ABG pH (7.35-7.45) ABG HCO3 (22-28) ABG O2 Sat (Measured) (95-100) % Edd Test A-a Gradient a/A Ratio Hemoglobin Carboxyhemoglobin (0.0-6.9) % THgb Methemoglobin (1.4-1.5) % Potassium (3.5-5.1) Temperature C POC O2 Flow Rate % Sodium (135-145) mmol/L Chloride (98-107) mmol/L Carbon Dioxide (22-30) mmol/L Anion Gap (5-15) MEQ/L BUN (9-20) mg/dL Creatinine (0.66-1.25) mg/dL Estimated GFR ML/MIN Glucose (74-106) mg/dL Lactic Acid (0.4-2.0) Calcium (8.4-10.2) mg/dL Magnesium (1.6-2.3) mg/dL Total Bilirubin (0.2-1.3) mg/dL AST (17-59) U/L ALT (0-50) U/L Alkaline Phosphatase (38-126) U/L Troponin I (0.000-0.033) ng/mL NT-Pro-B Natriuret Pep 626 (<300) pg/mL Serum Total Protein (6.3-8.2) g/dL Albumin (3.5-5.0) g/dL Influenza Type A Ag NEGATIVE (NEGATIVE) Influenza Type B Ag NEGATIVE (NEGATIVE) RSV (PCR) NEGATIVE (NEGATIVE) SARS-CoV-2 (PCR) NEGATIVE (NEGATIVE) 08/09/25 08/09/25 08/09/25 Range/Units 09:55 09:55 09:44 WBC 7.7 (4.23-9.07) x10^3/uL RBC 3.62 L (4.63-6.08) x10^6/uL Hgb 11.4 L (13.7-17.5) g/dL Hct 35.7 L (40.1-51.0) % MCV 98.6 H (79.0-92.2) fL MCH 31.5 (25.7-32.2) pg MCHC 31.9 L (32.3-36.5) g/dL RDW 14.0 (11.6-14.4) % Plt Count 250 (163-337) x10^3/uL MPV 9.4 (9.4-12.4) fL Gran % 77.1 H (34.0-67.9) % Immature Gran % (Auto) 0.4 (0.001-0.429) % Nucleat RBC Rel Count 0.0 (0.00-0.2) % Eos # (Auto) 0.09 (0.04-0.54) x10^3/uL Immature Gran # (Auto) 0.03 (0.001-0.031) x10^3u/L Absolute Lymphs (auto) 1.12 L (1.32-3.57) x10^3/uL Absolute Monos (auto) 0.50 (0.30-0.82) x10^3/uL Absolute Nucleated RBC 0.00 (0.00-0.012) x10^3u/L Lymphocytes % 14.5 L (21.8-53.1) % Monocytes % 6.5 (5.3-12.2) % Eosinophils % 1.2 (0.8-7.0) % Basophils % 0.3 (0.2-1.2) % Absolute Granulocytes 5.97 H (1.78-5.38) x10^3/uL Basophils # 0.02 (0.01-0.08) x10^3/uL PT (9.4-12.5) SECONDS INR (0.8-3.0) APTT (25.1-36.5) SECONDS Puncture Site Pending pCO2 37 (35-45) mmHg pO2 226 H* (75-100) mmHg Base Excess 2.5 H (-2.0-2.0) O2 Saturation 97.8 (94-100) g/dF ABG pH 7.46 H (7.35-7.45) ABG HCO3 26.3 (22-28) ABG O2 Sat (Measured) 100.0 (95-100) % Edd Test Pending A-a Gradient -123 a/A Ratio 2.19 Hemoglobin 11.1 Carboxyhemoglobin 1.4 (0.0-6.9) % THgb Methemoglobin 0.8 L (1.4-1.5) % Potassium 3.9 3.6 (3.5-5.1) Temperature 37.0 C POC O2 Flow Rate 21 % Sodium 135 (135-145) mmol/L Chloride 101 (98-107) mmol/L Carbon Dioxide 23 (22-30) mmol/L Anion Gap 14.7 (5-15) MEQ/L BUN 12 (9-20) mg/dL Creatinine 0.52 L (0.66-1.25) mg/dL Estimated GFR 103.8 ML/MIN Glucose 125 H (74-106) mg/dL Lactic Acid 1.8 (0.4-2.0) Calcium 9.4 (8.4-10.2) mg/dL Magnesium 1.9 (1.6-2.3) mg/dL Total Bilirubin 0.60 (0.2-1.3) mg/dL AST 31 (17-59) U/L ALT 33 (0-50) U/L Alkaline Phosphatase 116 (38-126) U/L Troponin I < 0.012 (0.000-0.033) ng/mL NT-Pro-B Natriuret Pep (<300) pg/mL Serum Total Protein 7.6 (6.3-8.2) g/dL Albumin 4.0 (3.5-5.0) g/dL Influenza Type A Ag (NEGATIVE) Influenza Type B Ag (NEGATIVE) RSV (PCR) (NEGATIVE) SARS-CoV-2 (PCR) (NEGATIVE) - Progress Progress: improved Progress Note: 08/09/25 13:20 IMPRESSION: 1. No evidence of pulmonary embolism. 2. Patchy ground glass densities, predominantly in the right lower lobe, interval regression since prior. 3. Redemonstrated decreased left lung volume with ipsilateral mediastinal shift. 4. Rather stable small air filled cavitary lesion in the upper part of the left lung, with associated scarring and mild traction bronchiectatic changes. 5. Right hilar adenopathy measuring [id number] mm, unchanged. 08/09/25 13:31 Patient feels improved with breathing treatments no evidence of PE. Patient does have ground glass densities however he is getting some progression he is currently on radiation therapy patient be discharged home he reports he has nebulizer at home at this time we will hold off on steroids patient sats are 94% on room air no evidence of infection likely suffering from COPD exacerbation however controlled with DuoNebs patient be discharged at this time recommend close turn precautions - Departure Departure Disposition: Home Clinical Impression: COPD exacerbation Condition: Stable Critical Care Time: No Referrals: [facility]OSPITAL,'[facility] [Primary Care Provider, UNKNOWN] - Follow up/PCP as directed Instructions: Chronic Obstructive Pulmonary Disease, Exacerbation of COPD (DC)
[2025-08-09 09:52] VITALS: TEMP 98.5
[2025-08-09] MEDS ORDERED: DUONEB 0.5-3 MG/3 ml Neb IH ONE ×2 (09:59→13:40)
[2025-08-09 10:00] LABS: BASOPHIL % 0.3 % (0.2-1.2); Basophil (Absolute #) 0.02 x10^3/uL (0.01-0.08); Eosinophil (Absolute #) 0.09 x10^3/uL (0.04-0.54); Hematocrit 35.7 % (40.1-51.0); Hemoglobin 11.4 g/dL (13.7-17.5); IMMATURE GRAN # 0.03 x10^3u/L (0.001-0.031); IMMATURE GRAN % 0.4 % (0.001-0.429); Lymphocyte (Absolute #) 1.12 x10^3/uL (1.32-3.57); Mean Corpuscular Hemoglobin 31.5 pg (25.7-32.2); Mean Corpuscular Hgb Concent. 31.9 g/dL (32.3-36.5); Monocyte (Absolute #) 0.50 x10^3/uL (0.30-0.82); NUCLEATED RBC # 0.00 x10^3u/L (0.00-0.012); NUCLEATED RBC % 0.0 % (0.00-0.2); Platelet Count 250 x10^3/uL (163-337); Red Blood Count 3.62 x10^6/uL (4.63-6.08); White Blood Count 7.7 x10^3/uL (4.23-9.07)
[2025-08-09] MEDS: DUONEB 0.5-3 MG/3 ml Neb IH ONE ×2 (10:03→13:41)
[2025-08-09 10:23] LABS: ABG HEMOGLOBIN 11.1; ABG POTASSIUM 3.6 (3.5-5.1); ARTERIAL BLD GAS O2 SATURATION 100.0 % (95-100); ARTERIAL BLOOD GAS BASE EXCESS 2.5 (-2.0-2.0); ARTERIAL BLOOD GAS FIO2 21 %; ARTERIAL BLOOD GAS PCO2 37 mmHg (35-45); ARTERIAL BLOOD GAS PO2 226 mmHg (75-100); ARTERIAL BLOOD GAS TEMPERATURE 37.0 C; HCO3- 26.3 (22-28); HGB O2 SAT 97.8 g/dF (94-100); Methhemoglobin 0.8 % (1.4-1.5); paO2 pAO1 2.19
[2025-08-09 10:24] LABS: INR 1.02 (0.8-3.0); PROTIME 11.4 SECONDS (9.4-12.5); PTT 27.1 SECONDS (25.1-36.5)
[2025-08-09 10:31] LABS: Calcium 9.4 mg/dL (8.4-10.2); Carbon Dioxide 23 mmol/L (22-30); Creatinine 1 0.52 mg/dL (0.66-1.25); EST GLOMERULAR FILTRATION RATE 103.8 ML/MIN; Glucose 125 mg/dL (74-106); Potassium 3.9 mmol/L (3.5-5.1); SGOT/AST 31 U/L (17-59); SGPT/ALT 33 U/L (0-50); TROPONIN < 0.012 ng/mL (0.000-0.033); Total Protein 7.6 g/dL (6.3-8.2)
[2025-08-09 10:38] LABS: INFLUENZA A NEGATIVE (NEGATIVE); INFLUENZA B NEGATIVE (NEGATIVE); RESPIRATORY SYNCTIAL VIRUS NEGATIVE (NEGATIVE); SARS-CoV-2 Xpert Express NEGATIVE (NEGATIVE)
--- NOTE | 2025-08-09 12:42 | XRAY ---
CLINICAL HISTORY: r/o PE hx of lung ca on radiation COMPARISON: comparison is made with the prior examination dated 10/25/2024. TECHNIQUE: Contiguous axial CT images of the chest were acquired with administration of intravenous contrast. Coronal and sagittal reconstructions were obtained. One of the following dose reduction techniques were utilized for this exam: Automated exposure control, adjustment of the mA and/or kV according to patient size, use of iterative reconstruction. FINDINGS: Lungs: Redemonstrated decreased left lung volume with ipsilateral mediastinal shift. There are patchy ground glass densities, predominantly in the right lower lobe, interval regression since prior. Rather stable small air filled cavitary lesion (17 x 26 mm) in the upper part of the left lung, with associated scarring and mild traction bronchiectatic changes. No pleural effusion. Stable minimal left pleural thickening. Mediastinum: No mediastinal mass or abnormal lymphadenopathy. Hilar Structures: Right hilar adenopathy measuring about [id number] mm, unchanged since the prior examination. Heart and Great Vessels: Normal heart size and configuration. No pericardial effusion. Normal caliber and course of the thoracic aorta and other great vessels. Atherosclerotic calcifications of the aorta and the coronaries. Normal enhancement of the great vessels post-contrast. Pulmonary Arteries: No evidence of pulmonary embolism. Normal size and course of the pulmonary arteries. Esophagus: Normal course and caliber. No masses or dilatation. Bones: No fractures. Diffuse degenerative changes. Chest Wall: No masses or soft tissue abnormalities. Upper Abdomen: Splenic tiny calcifications are noted; old healed granulomas. Thyroid: Normal size and morphology. No nodules or masses. IMPRESSION: 1. No evidence of pulmonary embolism. 2. Patchy ground glass densities, predominantly in the right lower lobe, interval regression since prior. 3. Redemonstrated decreased left lung volume with ipsilateral mediastinal shift. 4. Rather stable small air filled cavitary lesion in the upper part of the left lung, with associated scarring and mild traction bronchiectatic changes. 5. Right hilar adenopathy measuring [id number] mm, unchanged. Electronically Signed by: Skyler Karimi MD. (08/09/2025 12:41:17 EST)
[2025-08-09 14:39] VITALS: BP 152/81; PULSE 100
[2025-08-09 14:52] VITALS: RESP 20
[2025-08-09 16:06] VITALS: O2SAT 93
--- NOTE | 2025-08-09 18:32 | XRAY ---
Indication: Short of breath. Comparison: October 29, 2024 Portable chest demonstrates new right mid to lower lung hazy airspace disease without consolidation/large effusion. Remaining chest unchanged again with left upper lobectomy. Heart not enlarged. Bony thorax intact again with osteopenia and degenerative changes.
[2025-08-10 06:01] LABS: ABG SITE RIGHT RADIAL
[2025-08-10 06:02] LABS: ALLEN TEST OK? YES
== END 2025-08-09 14:52 | disposition home or self-care (01) ==
LOC: ED 09:40
DX: J44.1 Chronic obstructive pulmonary disease with (acute) exacerbation (principal); R06.02 Shortness of breath; I10 Essential (primary) hypertension; Z79.891 Long term (current) use of opiate analgesic; Z79.899 Other long term (current) drug therapy; Z72.0 Tobacco use